=== PATIENT | female | born 1975 | race Caucasian/White ===

== ENCOUNTER 2016-10-12 17:30 | Inpatient (IN) | payer SELFPAY ==
[2016-10-12] VITALS (7 sets, daily range): BP systolic 92–109; BP diastolic 54–59; PULSE 74–88; RESP 16–19; TEMP 98.2–98.4; O2SAT 97–100
[~2016-10-12 17:30] MED LIST: IBUP800T23 PO; PROZ20CA11 PO; TRAZ100 PO
[2016-10-12] MEDS ORDERED: CLON1 PO (17:48)
[2016-10-12] MEDS ORDERED: AMPH1TAB29 PO (17:48)
[2016-10-12] MEDS ORDERED: ONDANSETRON HCL 4 MG/2 ML VIAL IV PUSH ONE (18:00)
[2016-10-12] MEDS ORDERED: MORPHINE SULFATE 4 MG/ML INJ IV PUSH ONE ×2 (18:00→21:30)
[2016-10-12] MEDS ORDERED: CLINDAMYCIN INJ 600 MG in SODIUM CHLORIDE 0.9% INJ 100 ML IV ONE (18:00)
[2016-10-12] MEDS ORDERED: SODIUM CHLORIDE 0.9% FLUSH 10 ML FLUSH IV FLUSH PRN ×2 (18:00→22:30)
--- NOTE | 2016-10-12 18:07 | PD ---
HPI Chief Complaint: Skin Problem Time Seen by Provider: 17:58 Travel History International Travel<30 days: No Contact w/Intl Traveler<30days: No Traveled to known affect area: No History of Present Illness HPI Patient comes in complaining of right breast pain and swelling that began 2 days ago. Patient denies any injury, breast-feeding, fevers, chest pain, shortness of breath, nipple discharge, or drainage. Patient states she had similar thing happen to her left breast in 2009 and she has been hospitalized for 3 days for an IV antibiotics. Patient describes pain as a throbbing pressure-like pain that radiates up into her right arm. Patient is on Bactrim and Cipro as well as received a IM shot of antibiotics yesterday that she received at a different ER with no improvement of symptoms. Patient states she feels it's getting worse. PFSH Past Medical History ADHD: Yes Anxiety: Yes Depression: Yes ?: Not Social History Tobacco Use: Yes Substance Use: No Allergies-Medications (Allergen,Severity, Reaction): Coded Allergies: No Known Allergies (Unverified , 10/12/16) Reported Meds & Prescriptions Reported Meds & Active Scripts Active Reported Khedezla 24 HR (Desvenlafaxine Succinate) 50 Mg Tab 25 Mg PO DAILY Klonopin (Clonazepam) 1 Mg Tab 1 Mg PO BID Adderall (Amphetamine-Dextroamphetamine) 5 Mg Tab 5 Mg PO DAILY Avoid late evening doses. Space doses at least 4 to 6 hours if more than once/day dosing. Review of Systems Except as stated in HPI: all other systems reviewed are Neg Physical Exam Narrative GENERAL: Well-developed, overly nourished, in no acute distress, and non-ill appearing. SKIN: Focused skin assessment warm and dry. Patient is a firm tender mass on the right breast at approximately 1 o'clock position. Right breast is swollen compared to the left. There is no nipple discharge. Area is afebrile, mild erythematous, and without crepitus or induration or fluctuation. HEAD: Atraumatic. Normocephalic. EYES: Pupils equal and round. EOMI. No scleral icterus. No injection or drainage. ENT: No nasal bleeding or discharge. Mucous membranes pink and moist. NECK: Trachea midline. Supple. No nuclear rigidity. CARDIOVASCULAR: Regular rate and rhythm. No murmur appreciated. RESPIRATORY: No accessory muscle use. No respiratory distress. Clear to auscultation. Breath sounds equal bilaterally. MUSCULOSKELETAL: No obvious deformities. No clubbing. No cyanosis. No edema. Full range of motion. NEUROLOGICAL: Awake and alert. No obvious cranial nerve deficits. Motor grossly within normal limits. Normal speech. PSYCHIATRIC: Appropriate mood and affect; insight and judgment normal. Data Data Last Documented VS Vital Signs Date Time Temp Pulse Resp B/P Pulse Ox O2 Delivery O2 Flow Rate FiO2 10/12/16 21:50 16 10/12/16 21:40 74 104/57 98 Room Air 10/12/16 17:34 98.4 Orders Basic Metabolic Panel (Bmp) (10/12/16 17:56) Complete Blood Count With Diff (10/12/16 17:56) Prothrombin Time / Inr (Pt) (10/12/16 17:56) Act Partial Throm Time (Ptt) (10/12/16 17:56) Iv Access Insert/Monitor (10/12/16 17:56) Ecg Monitoring (10/12/16 17:56) Oximetry (10/12/16 17:56) Sodium Chloride 0.9% Flush (Ns Flush) (10/12/16 18:00) Clindamycin Inj (Cleocin Inj) (10/12/16 18:00) Us Breast Unilateral (10/12/16 ) Ondansetron Inj (Zofran Inj) (10/12/16 18:00) Morphine Inj (Morphine Inj) (10/12/16 18:00) Ketorolac Inj (Toradol Inj) (10/12/16 19:30) Morphine Inj (Morphine Inj) (10/12/16 21:30) Sodium Chlor 0.9% 1000 Ml Inj (Ns 1000 M (10/12/16 21:30) Admit Order (Ed Use Only) (10/12/16 22:23) Labs Laboratory Tests Test 10/12/16 18:10 White Blood Count 10.5 TH/MM3 Red Blood Count 4.17 MIL/MM3 Hemoglobin 13.2 GM/DL Hematocrit 37.6 % Mean Corpuscular Volume 90.0 FL Mean Corpuscular Hemoglobin 31.6 PG Mean Corpuscular Hemoglobin 35.1 % Concent Red Cell Distribution Width 14.0 % Platelet Count 241 TH/MM3 Mean Platelet Volume 8.3 FL Neutrophils (%) (Auto) 73.2 % Lymphocytes (%) (Auto) 20.3 % Monocytes (%) (Auto) 5.4 % Eosinophils (%) (Auto) 0.9 % Basophils (%) (Auto) 0.2 % Neutrophils # (Auto) 7.7 TH/MM3 Lymphocytes # (Auto) 2.1 TH/MM3 Monocytes # (Auto) 0.6 TH/MM3 Eosinophils # (Auto) 0.1 TH/MM3 Basophils # (Auto) 0.0 TH/MM3 CBC Comment DIFF FINAL Differential Comment Prothrombin Time 10.6 SEC Prothromb Time International 1.0 RATIO Ratio Activated Partial 32.5 SEC Thromboplast Time Sodium Level 138 MEQ/L Potassium Level 3.6 MEQ/L Chloride Level 106 MEQ/L Carbon Dioxide Level 24.1 MEQ/L Anion Gap 8 MEQ/L Blood Urea Nitrogen 10 MG/DL Creatinine 1.17 MG/DL Estimat Glomerular Filtration 51 ML/MIN Rate Random Glucose 78 MG/DL Calcium Level 8.9 MG/DL [facility] Medical Decision Making Medical Screen Exam Complete: Yes Emergency Medical Condition: Yes Differential Diagnosis Abscess, cellulitis, mastitis, other Narrative Course Patient was seen and examined. IV was established. Patient was placed on a personnel monitor. Patient was given IV clindamycin, IV morphine for pain, IV Zofran for nausea, and IV Toradol for pain. Ultrasound was ordered. Patient's labs were reviewed. Patient was signed out to Dr. Ball pending ultrasound results. Please see her documentation for final diagnosis and disposition. Jimmy Howard Oct 12, 2016 18:07
[2016-10-12] MEDS ORDERED: DESV5TAB PO (18:30)
[2016-10-12 18:49] LABS: AUTOMATED NEUTROPHIL # 7.7 TH/MM3 (1.8-7.7); BASOPHIL % 0.2 % (0.0-2.0); EOSINOPHIL # 0.1 TH/MM3 (0-0.4); EOSINOPHIL % 0.9 % (0.0-4.0); HEMATOCRIT 37.6 % (35.0-46.0); HEMO FLAGS DIFF FINAL; LYMPH % 20.3 % (9.0-44.0); LYMPHOCYTE # 2.1 TH/MM3 (1.0-4.8); MEAN CORPUSCULAR HEMOGLOBIN 31.6 PG (27.0-34.0); MEAN CORPUSCULAR HGB CONC 35.1 % (32.0-36.0); MONO % 5.4 % (0.0-8.0); NEUT % 73.2 % (16.0-70.0); PLATELET COUNT 241 TH/MM3 (150-450); RED BLOOD COUNT 4.17 MIL/MM3 (4.00-5.30); WHITE BLOOD COUNT 10.5 TH/MM3 (4.0-11.0)
[2016-10-12 18:59] LABS: APTT (PATIENT) 32.5 SEC (24.3-30.1); PROTHROMBIN TIME - PATIENT 10.6 SEC (9.8-11.6)
[2016-10-12 19:17] LABS: BICARBONATE 24.1 MEQ/L (21.0-32.0); POTASSIUM 3.6 MEQ/L (3.5-5.1)
[2016-10-12] MEDS ORDERED: KETOROLAC TROMETHAMINE 30 MG/ML (IVP) VIAL IV PUSH ONE (19:30)
[2016-10-12] MEDS ORDERED: SODIUM CHLOR 0.9% 1000 ML INJ 1,000 ML IV SCH (21:30)
--- NOTE | 2016-10-12 21:53 | RADRPT ---
EXAM DATE/TIME: 10/12/2016 20:08 [place] COMPARISON: No previous studies available for comparison. INDICATIONS : Right breast pain and swelling. MEDICAL HISTORY : Anxiety. Depression. ADHD. SURGICAL HISTORY : None. ENCOUNTER: Initial ACUITY: 2 days PAIN SCORE: 6/10 LOCATION: Right breast. FINDINGS: The region of the right breast from 12: 00 to 6:00 was performed. There multiple dilated ducts seen at 12:00 through 2:00 and on color Doppl er, there is scattered areas of increased vascularity. At the 3:00 region, there is diffuse prominen t area of hyperechogenicity without increased flow by color Doppler which measures in excess of 5 cm in dimension. No focal fluid collection seen. There is some skin thickening about the scanned area. CONCLUSION: 1. Thickened and hyperechogenic soft tissue in the 3: 2. 00 region measuring excess of 5 cm without drainable fluid collections and without hypervascularit y. 3. 4. Dilated ducts and increased flow in the parenchyma from 12: 5. 00 to 2:00 without drainable fluid collections. 6. Please note that this examination is not performed for the purposes of detection of breast cancer, but rather for identification of abscess. Bryan House MD on October 12, 2016 at 21:47 Board Certified Radiologist. This report was verified electronically.
[2016-10-12] MEDS ORDERED: SENNOSIDES 8.6 MG TAB PO PRN (22:30)
[2016-10-12] MEDS ORDERED: LACTULOSE SYRUP 20 GM/30 ML CUP PO PRN (22:30)
[2016-10-12] MEDS ORDERED: BISACODYL 10 MG SUPP RECTAL PRN (22:30)
[2016-10-12] MEDS ORDERED: ONDANSETRON HCL 4 MG/2 ML VIAL IVP PRN (22:30)
[2016-10-12] MEDS ORDERED: MAGNESIUM HYDROXIDE SUSP 30 ML CUP PO PRN (22:30)
[2016-10-12] MEDS ORDERED: MORPHINE SULFATE 4 MG/ML INJ IV PRN (22:30)
[2016-10-12] MEDS ORDERED: ACETAMINOPHEN 325 MG TAB PO PRN (22:30)
[2016-10-12] MEDS ORDERED: ACETAMINOPHEN/HYDROcodone 325 MG/5 MG TAB PO PRN (22:30)
--- NOTE | 2016-10-12 22:30 | HHI.HP ---
[facility] No Primary Care Physician Admission Diagnosis mastitis Diagnoses: (1) Mastitis Diagnosis: Principal (2) JUANITA (acute kidney injury) Diagnosis: Principal (3) Dehydration Diagnosis: Principal (4) Hypotension Diagnosis: Principal (5) Tobacco abuse Diagnosis: Principal Travel History International Travel<30 Days: No Contact w/Intl Traveler <30 Da: No Traveled to Known Affected Are: No History of Present Illness This is a 41-year-old female with a PMH of Anxiety, Depression, ADHD and Tobacco Abuse who presented to the ER with complaints of right breast pain and swelling x2 days. States she noted right breast tenderness on which got progressively worse throughout the day (has photos in phone documenting progression). Presented to yesterday for ongoing symptoms, states she was given IV abx and discharged w/ Cipro/Bactrim-has taken a total of 4 doses. Today, noted worsening redness and pain and presented to Urgent Care. Given unknown IV Abx and Toradol w/ minimal relief. Presented here for ongoing complaints. No trauma, injury, piercing, not . Reports similar symptoms on left breast approx 7yrs ago which resolved after IV Abx. Denies fever, chills. On arrival, BP 109 and 59, HR 89, O2 sat 98% on RA, Afebrile. While in ER has had episodes of transient hypotension following Morphine with BP 92/54, HR 83, asymptomatic. Creatinine 1.17, no previous labs for comparison. GFR 51. INR 1.0. Breast US with thickened and hyperechogenic soft tissue measuring 5 cm without drainable fluid collection, dilated ducts and increased flow in the parenchyma also without drainable fluid collections. S/p Clinda in ER. Review of Systems Except as stated in HPI: all other systems reviewed are Neg ROS: 14 point review of systems otherwise negative. Past Family Social History Past Medical History PMH: Anxiety, Depression, ADHD and Tobacco Abuse Past Surgical History PAST SURGICAL HISTORY: Left Breast Biopsy Allergies: Coded Allergies: No Known Allergies (Unverified , 10/12/16) Family History PAST FAMILY HISTORY: Reviewed. No h/o DM or CAD Social History PAST SOCIAL HISTORY: Occasional alcohol. Smokes 1/2ppd. Negative for drugs. Physical Exam Vital Signs Vital Signs Date Time Temp Pulse Resp B/P Pulse Ox O2 Delivery O2 Flow Rate FiO2 10/12/16 21:40 74 16 104/57 98 Room Air 10/12/16 20:10 78 16 105/56 98 10/12/16 19:22 83 19 92/54 100 Room Air 10/12/16 18:21 98 Room Air 10/12/16 17:34 98.4 88 16 109/59 98 Room Air Physical Exam PE: GENERAL: Pleasant young female in mild distress secondary to significant breast pain. HEENT: PERRLA, EOMI. No scleral icterus or conjunctival pallor. No lid lag or facial droop. CARDIOVASCULAR: Regular rate and rhythm. No obvious murmurs to auscultation. No chest tenderness to palpation. Right breast significantly larger than left, +erythema, +induration, no fluctuance noted, nipple inverted. RESPIRATORY: No obvious rhonchi or wheezing. Clear to auscultation. Breath sounds equal bilaterally. GASTROINTESTINAL: Abdomen soft, non-tender, nondistended. BS normal. MUSCULOSKELETAL: Extremities without clubbing, cyanosis, or edema. No obvious deformities. NEUROLOGICAL: Awake, alert and oriented x4. No focal neurologic deficits. Moving both upper and lower extremities spontaneously. Laboratory Laboratory Tests Test 10/12/16 18:10 White Blood Count 10.5 Red Blood Count 4.17 Hemoglobin 13.2 Hematocrit 37.6 Mean Corpuscular Volume 90.0 Mean Corpuscular Hemoglobin 31.6 Mean Corpuscular Hemoglobin 35.1 Concent Red Cell Distribution Width 14.0 Platelet Count 241 Mean Platelet Volume 8.3 Neutrophils (%) (Auto) 73.2 Lymphocytes (%) (Auto) 20.3 Monocytes (%) (Auto) 5.4 Eosinophils (%) (Auto) 0.9 Basophils (%) (Auto) 0.2 Neutrophils # (Auto) 7.7 Lymphocytes # (Auto) 2.1 Monocytes # (Auto) 0.6 Eosinophils # (Auto) 0.1 Basophils # (Auto) 0.0 CBC Comment DIFF FINAL Differential Comment Prothrombin Time 10.6 Prothromb Time International 1.0 Ratio Activated Partial 32.5 Thromboplast Time Sodium Level 138 Potassium Level 3.6 Chloride Level 106 Carbon Dioxide Level 24.1 Anion Gap 8 Blood Urea Nitrogen 10 Creatinine 1.17 Estimat Glomerular Filtration 51 Rate Random Glucose 78 Calcium Level 8.9 Result Diagram: 10/12/16180910/12/161809 Assessment and Plan Problem List: (1) Mastitis ICD Code: N61.0 Status: Acute (2) JUANITA (acute kidney injury) ICD Code: N17.9 Status: Acute (3) Dehydration ICD Code: E86.0 Status: Acute (4) Hypotension ICD Code: I95.9 Status: Acute (5) Tobacco abuse ICD Code: Z72.0 Status: Acute Assessment and Plan A/P: 1. Mastitis: Unclear etiology, no trauma/piercing/. Acute onset of right breast pain/swelling x2 days, s/p Cipro/Bactrim po x1 day, IM Abx and Toradol today w/ minimal improvement. Afebrile, no leukocytosis. Breast w/ obvious infection on exam, no fluctuance noted. Breast US w/ thickened and hyperechogenic soft tissue measuring 5 cm without drainable fluid collection and dilated ducts with increased flow also without drainable fluid collections, images reviewed by me. S/p Clinda in ER. Will continue w/ IV Abx, transition to PO by time of discharge. Pt instructed to follow up w/ PCP for Mammogram to eval for possible underlying mass once acute infection resolved. 2. JUANITA: Creatinine 1.17, no previous labs for comparison. IVF for hydration. Repeat labs in am. 3. Dehydration: GFR 51, Creatinine elevated as above. IVF, repeat labs in am. 4. Hypotension: Likely medication-related, transient hypotension w/ BP 92/54, HR 83 after Morphine IV. IVF for hydration, monitor BP. Switch to Dilaudid IV at lower dose. 5. Tobacco Abuse: Pt counselled. NicoDerm prn if needed. 6. DVT Prophylaxis: SCD/Teds. 7. Social work for d/c planning as needed. 8. Case discussed w/ ER physician at length Adelia Almaguer MD Oct 12, 2016 22:30
[2016-10-12] MEDS: SODIUM CHLOR 0.9% 1000 ML INJ 1,000 ML IV SCH (22:47)
[2016-10-12] MEDS ORDERED: HYDROmorphone HCL PF 1 MG/ML VIAL IV PUSH PRN (23:00)
[2016-10-13] VITALS (8 sets, daily range): BP systolic 80–113; BP diastolic 51–96; PULSE 71–80; RESP 16–18; TEMP 97.2–98.5; O2SAT 95–99
[2016-10-13] MEDS ORDERED: KETOROLAC TROMETHAMINE 30 MG/ML (IVP) VIAL IV PUSH ONE (00:45)
--- NOTE | 2016-10-13 01:12 | PD ---
Data Data Last Documented VS Vital Signs Date Time Temp Pulse Resp B/P Pulse Ox O2 Delivery O2 Flow Rate FiO2 10/12/16 21:50 16 10/12/16 21:40 74 104/57 98 Room Air 10/12/16 17:34 98.4 Orders Basic Metabolic Panel (Bmp) (10/12/16 17:56) Complete Blood Count With Diff (10/12/16 17:56) Prothrombin Time / Inr (Pt) (10/12/16 17:56) Act Partial Throm Time (Ptt) (10/12/16 17:56) Iv Access Insert/Monitor (10/12/16 17:56) Ecg Monitoring (10/12/16 17:56) Oximetry (10/12/16 17:56) Sodium Chloride 0.9% Flush (Ns Flush) (10/12/16 18:00) Clindamycin Inj (Cleocin Inj) (10/12/16 18:00) Us Breast Unilateral (10/12/16 ) Ondansetron Inj (Zofran Inj) (10/12/16 18:00) Morphine Inj (Morphine Inj) (10/12/16 18:00) Ketorolac Inj (Toradol Inj) (10/12/16 19:30) Morphine Inj (Morphine Inj) (10/12/16 21:30) Sodium Chlor 0.9% 1000 Ml Inj (Ns 1000 M (10/12/16 21:30) Admit Order (Ed Use Only) (10/12/16 22:23) Labs Laboratory Tests Test 10/12/16 18:10 White Blood Count 10.5 TH/MM3 Red Blood Count 4.17 MIL/MM3 Hemoglobin 13.2 GM/DL Hematocrit 37.6 % Mean Corpuscular Volume 90.0 FL Mean Corpuscular Hemoglobin 31.6 PG Mean Corpuscular Hemoglobin 35.1 % Concent Red Cell Distribution Width 14.0 % Platelet Count 241 TH/MM3 Mean Platelet Volume 8.3 FL Neutrophils (%) (Auto) 73.2 % Lymphocytes (%) (Auto) 20.3 % Monocytes (%) (Auto) 5.4 % Eosinophils (%) (Auto) 0.9 % Basophils (%) (Auto) 0.2 % Neutrophils # (Auto) 7.7 TH/MM3 Lymphocytes # (Auto) 2.1 TH/MM3 Monocytes # (Auto) 0.6 TH/MM3 Eosinophils # (Auto) 0.1 TH/MM3 Basophils # (Auto) 0.0 TH/MM3 CBC Comment DIFF FINAL Differential Comment Prothrombin Time 10.6 SEC Prothromb Time International 1.0 RATIO Ratio Activated Partial 32.5 SEC Thromboplast Time Sodium Level 138 MEQ/L Potassium Level 3.6 MEQ/L Chloride Level 106 MEQ/L Carbon Dioxide Level 24.1 MEQ/L Anion Gap 8 MEQ/L Blood Urea Nitrogen 10 MG/DL Creatinine 1.17 MG/DL Estimat Glomerular Filtration 51 ML/MIN Rate Random Glucose 78 MG/DL Calcium Level 8.9 MG/DL MDM Supervised Visit with VIRGEN: Yes Narrative Course The history, exam, and medical decision-making in the associated midlevel provider note were completed with my assistance. I reviewed and agree with the findings presented. I attest that I had a [id number] encounter with the patient on the same day, and personally performed and documented my assessment and findings in the medical record. *My assessment and Findings: This is a 41-year-old female who presents to the emergency department with right sided breast pain, redness and swelling that's been worsening over the past 2 days. She's had mastitis in the opposite breast years ago. She is an impressive exam with diffuse erythema and an area of induration along the breast. She's been on antibiotics for about 24 hours and her symptoms seem to be progressing rapidly. Labs are reassuring. Ultrasound demonstrates an area of hyper echogenicity but no definitive abscess. Patient was given a dose of IV clindamycin and will be placed in observation for pain control and continued antibiotic therapy. Physician Communication Physician Communication Discussed with Dr. Almaguer Diagnosis Primary Impression: Mastitis Admitting Information Admitting Physician Requests: Observation Shazia Ball MD Oct 13, 2016 01:12
[2016-10-13] MEDS ORDERED: SODIUM CHLORID 0.9% 500 ML INJ 500 ML IV ONE (05:15)
[2016-10-13] MEDS: CLINDAMYCIN INJ 900 MG in SODIUM CHLORIDE 0.9% INJ 100 ML IV SCH ×3 (07:07→22:19)
[2016-10-13] MEDS: SODIUM CHLOR 0.9% 1000 ML INJ 1,000 ML IV SCH ×2 (08:20→18:20)
--- NOTE | 2016-10-13 08:20 | HHI.PR ---
Subjective Remarks Follow-up for mastitis. Patient seen and examined in the presence of RN. The patient reports no improvement in breast pain and swelling overnight. She denies any nipple drainage. She denies any fevers or chills. She reports decreased appetite, but was able to tolerate a protein bar this morning. She states that she has a history of mastitis on the left breast in the past. She states that they had to use multiple different antibiotics before she finally had relief previously. She states that they were not able to get any cultures as samples on her previous infection, but she states she was told that she may have had MRSA. She reports that over the past 3 days her pain has not been controlled with Toradol, [place], morphine. Objective Vitals Vital Signs Date Time Temp Pulse Resp B/P Pulse Ox O2 Delivery O2 Flow Rate FiO2 10/13/16 04:54 99/54 10/13/16 04:54 100/64 10/13/16 02:49 98.2 76 18 90/52 99 10/12/16 23:47 98.2 75 18 95/54 97 10/12/16 23:12 75 18 92/55 98 10/12/16 21:50 16 10/12/16 21:40 74 16 104/57 98 Room Air 10/12/16 20:10 78 16 105/56 98 10/12/16 19:22 83 19 92/54 100 Room Air 10/12/16 18:21 98 Room Air 10/12/16 17:34 98.4 88 16 109/59 98 Room Air I/O 10/12/16 10/12/16 10/12/16 10/13/16 10/13/16 10/13/16 07:00 15:00 23:00 07:00 15:00 23:00 Intake Total 1500 ml Balance 1500 ml Intake Oral 500 ml IV Total 1000 ml # Voids 1 2 Result Diagram: 10/12/16180910/12/161809 Imaging Last Impressions Breast Ultrasound 10/12/16 0000 Signed Impressions: Service Date/Time: Wednesday, October 12, 2016 20:08 - CONCLUSION: 1. Thickened and hyperechogenic soft tissue in the 3: 2. 00 region measuring excess of 5 cm without drainable fluid collections and without hypervascularity. 3. 4. Dilated ducts and increased flow in the parenchyma from 12: 5. 00 to 2:00 without drainable fluid collections. 6. Please note that this examination is not performed for the purposes of detection of breast cancer, but rather for identification of abscess. Bryan House MD Objective Remarks GENERAL: Well-developed well-nourished. In no acute distress. SKIN: Warm and dry. Right breast with significant swelling, erythema, warmth, superior induration; no fluctuance noted, no nipple drainage. HEENT: Normocephalic. Pupils equal and round. Mucous membranes pink and moist. CARDIOVASCULAR: Regular rate and rhythm. No murmur appreciated. RESPIRATORY: No accessory muscle use. Clear to auscultation. Breath sounds equal bilaterally. GASTROINTESTINAL: Abdomen soft, non-tender, nondistended. Bowel sounds x4. MUSCULOSKELETAL: No obvious deformities. No clubbing or cyanosis. No edema. NEUROLOGICAL: Awake and alert. No focal neurological deficits. Moves upper and lower extremities spontaneously. Normal speech. PSYCHIATRIC: Appropriate mood and affect; insight and judgment normal. A/P Problem List: (1) Mastitis ICD Code: N61.0 Status: Acute (2) JUANITA (acute kidney injury) ICD Code: N17.9 Status: Acute (3) Dehydration ICD Code: E86.0 Status: Acute (4) Hypotension ICD Code: I95.9 Status: Acute (5) Tobacco abuse ICD Code: Z72.0 Status: Chronic Assessment and Plan 41-year-old female with a PMH of Anxiety, Depression, ADHD and Tobacco Abuse who presented with complaints of right breast pain and swelling x2 days Mastitis: Unclear etiology, no trauma/piercing/. Acute onset of right breast pain/swelling. IV/IM/PO antibiotics for 2 days prior to admission with no improvement. Afebrile, no leukocytosis. Breast w/ obvious infection on exam, no fluctuance noted. Breast US w/ thickened and hyperechogenic soft tissue measuring 5 cm without drainable fluid collection and dilated ducts with increased flow also without drainable fluid collections. Continue IV clindamycin for now with Lactinex. Consider ID consultation if no improvement. Consult general surgery to eval for possible debridement. Pain control with oral Percocet and IV Dilaudid as needed. JUANITA: Creatinine 1.17, no previous labs for comparison. IVF for hydration. Follow-up repeat labs. Hypotension: It appears the patient's blood pressure is soft at baseline. Caution with IV narcotics. IVF for hydration, monitor BP. Anxiety/depression/ADHD: Chronic, continue home medications as indicated. Tobacco Abuse: Pt counseling. NicoDerm if needed. DVT Prophylaxis: SCD/Teds. Discharge Planning D/W Dr. Puentes. Admit to inpatient with failed outpatient therapy. Chuy Blakely Oct 13, 2016 08:20
[2016-10-13] MEDS: oxyCODONE/ACETAMINOPHEN 5 MG/325 MG TAB PO PRN ×2 (08:47→14:23)
[2016-10-13] MEDS: SODIUM CHLORIDE 0.9% FLUSH 10 ML FLUSH IV FLUSH SCH ×2 (09:00→21:00)
[2016-10-13] MEDS: LACTOBACILLUS ACIDOPHILUS TAB PO SCH ×2 (09:28→21:06)
[2016-10-13] MEDS: clonazePAM 1 MG TAB PO SCH ×2 (09:28→21:06)
[2016-10-13] MEDS: DOCUSATE SODIUM 50 MG/SENNA 8.6 MG TAB PO SCH ×2 (09:28→21:00)
[2016-10-13] MEDS: DEXTROAMPHETAMINE/AMPHETAMINE 5 MG TAB PO SCH (09:28)
[2016-10-13] MEDS ORDERED: HYDROmorphone HCL PF 1 MG/ML VIAL IV PUSH PRN (11:00)
--- NOTE | 2016-10-13 15:18 | PD.CONS ---
HPI Service General Surgery Consult Requested By Reason for Consult mastitis Primary Care Physician No Primary Care Physician History of Present Illness The patient is a 41-year-old female with a history of left breast mastitis in 2009 who presents with 3 days of pain and swelling to the right breast. She has never had children and has not been breast-feeding. She does not have a family history of breast cancer that she knows of. She smokes cigarettes one half to one pack per day. She developed swelling pain and erythema to the right breast on 3 days ago and presented to the emergency department yesterday. She denies nipple discharge. She did not have leukocytosis. Ultrasound of the right breast showed areas of tissue thickening and ducts dilatation in the right breast with no drainable fluid collection. In 2009 she had mastitis which did resolve with antibiotics alone. On her request, a biopsy of the area was performed a couple of months later and diagnosis showed fibrocystic disease and mastitis. Review of Systems Constitutional: DENIES: Fever, Chills Eyes: DENIES: Eye inflammation, Eye pain Respiratory: DENIES: Cough, Shortness of breath Cardiovascular: DENIES: Chest pain, Palpitations Gastrointestinal: DENIES: Abdominal pain, Nausea Integumentary: COMPLAINS OF: Breast skin changes, DENIES: Pruritus, Rash Past Family Social History Past Medical History Anxiety Depression ADHD Mastitis Tobacco use Past Surgical History Left breast biopsybenign Reported Medications Reported Meds & Active Scripts Active Reported Khedezla 24 HR (Desvenlafaxine Succinate) 50 Mg Tab 25 Mg PO DAILY Klonopin (Clonazepam) 1 Mg Tab 1 Mg PO BID Adderall (Amphetamine-Dextroamphetamine) 5 Mg Tab 5 Mg PO DAILY Avoid late evening doses. Space doses at least 4 to 6 hours if more than once/day dosing. Allergies: Coded Allergies: No Known Allergies (Unverified , 10/12/16) Active Ordered Medications Current Medications Medications (Trade) Dose Ordered Sig/Therese Route Start Time Stop Time Status Last Admin Sodium Chloride 2 ml 2 ml UNSCH PRN IV FLUSH 10/12/16 18:00 (NS 1000 ml Inj) 1,000 ml @ 100 mls/hr Q10H IV 10/12/16 22:20 10/12/16 22:47 (NS Flush) 2 ml UNSCH PRN IV FLUSH 10/12/16 22:30 (NS Flush) 2 ml BID IV FLUSH 10/13/16 09:00 (Zofran Inj) 4 mg Q6H PRN IVP 10/12/16 22:30 (Tylenol) 650 mg Q6H PRN PO 10/12/16 22:30 (Soraya-Colace) 1 tab BID PO 10/13/16 09:00 10/13/16 09:28 (Milk Of Magnesia Liq) 30 ml Q12H PRN PO 10/12/16 22:30 (Senokot) 17.2 mg Q12H PRN PO 10/12/16 22:30 (Dulcolax Supp) 10 mg DAILY PRN RECTAL 10/12/16 22:30 (Lactulose Liq) 30 ml DAILY PRN PO 10/12/16 22:30 (Adderall) 5 mg DAILY PO 10/13/16 09:00 10/13/16 09:28 (KlonoPIN) 1 mg BID PO 10/13/16 09:00 10/13/16 09:28 Patient Own Medication PT OWN MED: (Desvenlafaxine ER 24... DAILY PO 10/13/16 09:00 Hold (Cleocin Inj/NS Inj) 106 ml @ 212 mls/hr Q8HR IV 10/13/16 06:00 10/13/16 14:22 (Dilaudid Pf Inj) 0.2 mg Q4H PRN IV PUSH 10/13/16 11:00 (Lactinex) 1 tab Q12HR PO 10/13/16 09:00 10/13/16 09:28 (Percocet 5-325 Mg) 1 tab Q6H PRN PO 10/13/16 08:15 10/13/16 14:23 Family History Noncontributory Social History Occasional alcohol use. No drug use. She smokes 1/2-1 pack of cigarettes daily. Physical Exam Vital Signs Vital Signs Date Time Temp Pulse Resp B/P Pulse Ox O2 Delivery O2 Flow Rate FiO2 10/13/16 11:30 97.2 80 16 113/96 96 10/13/16 10:48 92/60 10/13/16 09:51 80/60 10/13/16 09:47 20 10/13/16 08:14 97.8 71 18 96/51 98 10/13/16 04:54 99/54 10/13/16 04:54 100/64 10/13/16 02:49 98.2 76 18 90/52 99 10/12/16 23:47 98.2 75 18 95/54 97 10/12/16 23:12 75 18 92/55 98 10/12/16 21:50 16 10/12/16 21:40 74 16 104/57 98 Room Air 10/12/16 20:10 78 16 105/56 98 10/12/16 19:22 83 19 92/54 100 Room Air 10/12/16 18:21 98 Room Air 10/12/16 17:34 98.4 88 16 109/59 98 Room Air Physical Exam GENERAL: Awake and alert. No acute distress. Cooperative. Overweight. HEAD: Normocephalic. Atraumatic. EYES: Pupils equal round and reactive to light bilaterally. No scleral icterus. Breasts: Performed in the presence of a female nurse. Right breast edematous enlarged and significantly tender. There is erythema present. She has mild nipple retraction. There is a masslike indurated area in the 12 o'clock position. No fluctuance. Left breast without tenderness or mass. No axillary or supraclavicular adenopathy. CHEST: Lungs clear to auscultation bilaterally with no wheezing or rhonchi. No respiratory distress. CARDIOVASCULAR: Regular rate and rhythm. EXTREMITIES: No cyanosis or edema. SKIN: Warm, dry, nonjaundiced. Laboratory Laboratory Tests Test 10/12/16 18:10 White Blood Count 10.5 Red Blood Count 4.17 Hemoglobin 13.2 Hematocrit 37.6 Mean Corpuscular Volume 90.0 Mean Corpuscular Hemoglobin 31.6 Mean Corpuscular Hemoglobin 35.1 Concent Red Cell Distribution Width 14.0 Platelet Count 241 Mean Platelet Volume 8.3 Neutrophils (%) (Auto) 73.2 Lymphocytes (%) (Auto) 20.3 Monocytes (%) (Auto) 5.4 Eosinophils (%) (Auto) 0.9 Basophils (%) (Auto) 0.2 Neutrophils # (Auto) 7.7 Lymphocytes # (Auto) 2.1 Monocytes # (Auto) 0.6 Eosinophils # (Auto) 0.1 Basophils # (Auto) 0.0 CBC Comment DIFF FINAL Differential Comment Prothrombin Time 10.6 Prothromb Time International 1.0 Ratio Activated Partial 32.5 Thromboplast Time Sodium Level 138 Potassium Level 3.6 Chloride Level 106 Carbon Dioxide Level 24.1 Anion Gap 8 Blood Urea Nitrogen 10 Creatinine 1.17 Estimat Glomerular Filtration 51 Rate Random Glucose 78 Calcium Level 8.9 Result Diagram: 10/12/16180910/12/16 181 Imaging Last Impressions Breast Ultrasound 10/12/16 0000 Signed Impressions: Service Date/Time: Wednesday, October 12, 2016 20:08 - CONCLUSION: 1. Thickened and hyperechogenic soft tissue in the 3: 2. 00 region measuring excess of 5 cm without drainable fluid collections and without hypervascularity. 3. 4. Dilated ducts and increased flow in the parenchyma from 12: 5. 00 to 2:00 without drainable fluid collections. 6. Please note that this examination is not performed for the purposes of detection of breast cancer, but rather for identification of abscess. Bryan House MD Assessment and Plan Assessment and Plan 41-year-old female with periductal mastitis. She has had this occur in the left breast in the past. This is associated with smoking. No need for surgical intervention this time. Recommend continued IV antibiotics and warm compresses as needed. Luis Loera MD Oct 13, 2016 15:18
[2016-10-13 16:45] LABS: AUTOMATED NEUTROPHIL # 4.2 TH/MM3 (1.8-7.7); BASOPHIL % 0.3 % (0.0-2.0); EOSINOPHIL # 0.1 TH/MM3 (0-0.4); EOSINOPHIL % 1.9 % (0.0-4.0); HEMATOCRIT 35.8 % (35.0-46.0); HEMO FLAGS DIFF FINAL; LYMPH % 27.3 % (9.0-44.0); LYMPHOCYTE # 1.8 TH/MM3 (1.0-4.8); MEAN CORPUSCULAR HEMOGLOBIN 30.8 PG (27.0-34.0); MEAN CORPUSCULAR HGB CONC 33.9 % (32.0-36.0); MONO % 7.2 % (0.0-8.0); NEUT % 63.3 % (16.0-70.0); PLATELET COUNT 228 TH/MM3 (150-450); RED BLOOD COUNT 3.93 MIL/MM3 (4.00-5.30); RED CELL DISTRIBUTION WIDTH 13.5 % (11.6-17.2); WHITE BLOOD COUNT 6.6 TH/MM3 (4.0-11.0)
[2016-10-13 17:08] LABS: ALT (GPT) 51 U/L (10-53); ANION GAP 6 MEQ/L (5-15); AST (GOT) 41 U/L (15-37); BICARBONATE 26.4 MEQ/L (21.0-32.0); BLOOD UREA NITROGEN 7 MG/DL (7-18); CHLORIDE 110 MEQ/L (98-107); GLOMERULAR FILTRATION RATE 72 ML/MIN (>89); POTASSIUM 4.1 MEQ/L (3.5-5.1); SODIUM (NA) 142 MEQ/L (136-145)
[2016-10-13 17:10] LABS: ALKALINE PHOSPHATASE 112 U/L (45-117); TOTAL BILIRUBIN ADULT 0.4 MG/DL (0.2-1.0)
[2016-10-13] MEDS: oxyCODONE/ACETAMINOPHEN 7.5 MG/325 MG TAB PO PRN ×2 (18:21→22:19)
[2016-10-13] MEDS ORDERED: NAPROXEN 500 MG TAB PO ONE (20:00)
[2016-10-13] MEDS: HYDROmorphone HCL PF 1 MG/ML VIAL IV PUSH PRN (21:08)
[2016-10-14] VITALS: BP 107/68; PULSE 75; RESP 18; TEMP 97.2; O2SAT 97
[2016-10-14] MEDS: SODIUM CHLOR 0.9% 1000 ML INJ 1,000 ML IV SCH ×2 (04:20→14:50)
[2016-10-14] MEDS: CLINDAMYCIN INJ 900 MG in SODIUM CHLORIDE 0.9% INJ 100 ML IV SCH ×3 (05:59→21:28)
[2016-10-14 08:00] VITALS: BP 102/70; PULSE 76; RESP 16; TEMP 96.2; O2SAT 100
[2016-10-14] MEDS: SODIUM CHLORIDE 0.9% FLUSH 10 ML FLUSH IV FLUSH SCH ×2 (09:00→20:16)
[2016-10-14] MEDS: LACTOBACILLUS ACIDOPHILUS TAB PO SCH ×2 (09:22→20:16)
[2016-10-14] MEDS: NAPROXEN 500 MG TAB PO SCH ×2 (09:22→20:16)
[2016-10-14] MEDS: DEXTROAMPHETAMINE/AMPHETAMINE 5 MG TAB PO SCH (09:22)
[2016-10-14] MEDS: clonazePAM 1 MG TAB PO SCH ×2 (09:22→20:16)
[2016-10-14] MEDS: DOCUSATE SODIUM 50 MG/SENNA 8.6 MG TAB PO SCH ×2 (09:22→20:16)
[2016-10-14] MEDS: oxyCODONE/ACETAMINOPHEN 7.5 MG/325 MG TAB PO PRN ×4 (09:23→23:20)
[2016-10-14 12:59] VITALS: BP 103/74; PULSE 77; RESP 16; TEMP 97.2
--- NOTE | 2016-10-14 14:01 | HHI.PR ---
Subjective Remarks Patient states right breast is less swollen but still very tender. denies fevers/chills denies diarrhea/rash. Vital signs better - bp improved. Objective Vitals Vital Signs Date Time Temp Pulse Resp B/P Pulse Ox O2 Delivery O2 Flow Rate FiO2 10/14/16 12:59 97.2 77 16 103/74 10/14/16 08:00 96.2 76 16 102/70 100 10/14/16 00:00 97.2 75 18 107/68 97 10/13/16 21:45 18 10/13/16 21:45 18 10/13/16 20:00 98.5 73 18 98/64 95 10/13/16 19:22 18 10/13/16 16:00 98.4 77 16 106/71 96 I/O 10/13/16 10/13/16 10/13/16 10/14/16 10/14/16 10/14/16 07:00 15:00 23:00 07:00 15:00 23:00 Intake Total 1860 ml 480 ml 720 ml Balance 1860 ml 480 ml 720 ml Intake Oral 860 ml 480 ml 720 ml IV Total 1000 ml # Voids 1 4 3 3 Result Diagram: 10/13/16 1557 10/13/16 1557 Imaging Last Impressions Breast Ultrasound 10/12/16 0000 Signed Impressions: Service Date/Time: Wednesday, October 12, 2016 20:08 - CONCLUSION: 1. Thickened and hyperechogenic soft tissue in the 3: 2. 00 region measuring excess of 5 cm without drainable fluid collections and without hypervascularity. 3. 4. Dilated ducts and increased flow in the parenchyma from 12: 5. 00 to 2:00 without drainable fluid collections. 6. Please note that this examination is not performed for the purposes of detection of breast cancer, but rather for identification of abscess. Bryan House MD Objective Remarks GENERAL: Well-developed well-nourished. In no acute distress. SKIN: Warm and dry. Right breast with significant swelling, erythema, warmth, superior induration; no fluctuance noted, nipple is inverted without drainage. HEENT: Normocephalic. Pupils equal and round. Mucous membranes pink and moist. CARDIOVASCULAR: Regular rate and rhythm. No murmur appreciated. RESPIRATORY: No accessory muscle use. Clear to auscultation. Breath sounds equal bilaterally. GASTROINTESTINAL: Abdomen soft, non-tender, nondistended. Bowel sounds x4. MUSCULOSKELETAL: No obvious deformities. No clubbing or cyanosis. No edema. NEUROLOGICAL: Awake and alert. No focal neurological deficits. Moves upper and lower extremities spontaneously. Normal speech. PSYCHIATRIC: Appropriate mood and affect; insight and judgment normal. Medications and IVs Current Medications Medications (Trade) Dose Ordered Sig/Therese Route Start Time Stop Time Status Last Admin (NS 1000 ml Inj) 1,000 ml @ 100 mls/hr Q10H IV 10/12/16 22:20 10/14/16 14:50 (NS Flush) 2 ml UNSCH PRN IV FLUSH 10/12/16 22:30 (NS Flush) 2 ml BID IV FLUSH 10/13/16 09:00 10/13/16 21:00 (Zofran Inj) 4 mg Q6H PRN IVP 10/12/16 22:30 (Tylenol) 650 mg Q6H PRN PO 10/12/16 22:30 (Soraya-Colace) 1 tab BID PO 10/13/16 09:00 10/14/16 09:22 (Milk Of Magnesia Liq) 30 ml Q12H PRN PO 10/12/16 22:30 (Senokot) 17.2 mg Q12H PRN PO 10/12/16 22:30 (Dulcolax Supp) 10 mg DAILY PRN RECTAL 10/12/16 22:30 (Lactulose Liq) 30 ml DAILY PRN PO 10/12/16 22:30 (Adderall) 5 mg DAILY PO 10/13/16 09:00 10/14/16 09:22 (KlonoPIN) 1 mg BID PO 10/13/16 09:00 10/14/16 09:22 Patient Own Medication PT OWN MED: (Desvenlafaxine ER 24... DAILY PO 10/13/16 09:00 Hold (Cleocin Inj/NS Inj) 106 ml @ 212 mls/hr Q8HR IV 10/13/16 06:00 10/14/16 13:23 (Lactinex) 1 tab Q12HR PO 10/13/16 09:00 10/14/16 09:22 (Percocet 7.5-325 Mg) 1 tab Q4H PRN PO 10/13/16 17:15 10/14/16 13:04 (Dilaudid Pf Inj) 0.5 mg Q4H PRN IV PUSH 10/13/16 17:15 10/14/16 14:51 (Naprosyn) 500 mg Q12HR PO 10/14/16 09:00 10/14/16 09:22 A/P Problem List: (1) Mastitis ICD Code: N61.0 Status: Acute Plan: Unclear etiology, no trauma/piercing/. Acute onset of right breast pain/swelling x2 days, s/p Cipro/Bactrim po x1 day, IM Abx and Toradol today w/ minimal improvement. Afebrile, no leukocytosis. Breast w/ obvious infection on exam, no fluctuance noted. Breast US w/ thickened and hyperechogenic soft tissue measuring 5 cm without drainable fluid collection and dilated ducts with increased flow also without drainable fluid collections, images reviewed by me. S/p Clinda in ER. Will continue w/ IV Abx, transition to PO by time of discharge. Pt instructed to follow up w/ PCP for Mammogram to eval for possible underlying mass once acute infection resolved. General surgery consulted, appreciate recommendations. No surgical intervention at this time recommended. (2) JUANITA (acute kidney injury) ICD Code: N17.9 Status: Resolved Plan: Creatinine 1.17 on admission, down to 0.88 on 10/13. Due to prerenal azotemia due to reported poor oral intake. Resolved after IVF administration. Continue to monitor BMP, strict I's and O's. Discontinue IV fluids. (3) Dehydration ICD Code: E86.0 Status: Resolved Plan: Patient treated with IV fluids. Patient now hydrated and able to tolerate by mouth. Will DC IV fluids. (4) Hypotension ICD Code: I95.9 Status: Resolved Plan: due to dehydration combined with IV narcotics. Bp much improved after IV fluid administration. Continue to monitor vital signs and treat hypotension with IV fluid boluses as needed. (5) Tobacco abuse ICD Code: Z72.0 Status: Chronic Plan: Advised smoking cessation. Assessment and Plan DVt prophylaxis: Encourage ambulation since patient is ambulatory , SCD's. Problem Qualifiers (1) Hypotension: Qualified Code: I95.2 - Hypotension due to drugs Dionicio Mccallum MD Oct 14, 2016 14:01
[2016-10-14] MEDS: HYDROmorphone HCL PF 1 MG/ML VIAL IV PUSH PRN ×2 (14:51→20:19)
--- NOTE | 2016-10-14 16:22 | HHI.PR ---
Subjective Subjective Notes She feels a bit better but still has pain and swelling of the right breast. Objective Vitals/I&O Vital Signs Date Time Temp Pulse Resp B/P Pulse Ox O2 Delivery O2 Flow Rate FiO2 10/14/16 12:59 97.2 77 16 103/74 10/14/16 08:00 100 10/12/16 21:40 Room Air Radiology Last Impressions Breast Ultrasound 10/12/16 0000 Signed Impressions: Service Date/Time: Wednesday, October 12, 2016 20:08 - CONCLUSION: 1. Thickened and hyperechogenic soft tissue in the 3: 2. 00 region measuring excess of 5 cm without drainable fluid collections and without hypervascularity. 3. 4. Dilated ducts and increased flow in the parenchyma from 12: 5. 00 to 2:00 without drainable fluid collections. 6. Please note that this examination is not performed for the purposes of detection of breast cancer, but rather for identification of abscess. Bryan House MD Narrative Exam examined in presence of female nurse: right breast with lessened erythema, superiorly at 1200 fairly large area prob 8cm of induration and tenderness, not fluctuant A/P Assessment and Plan 41 yo F with right breast periductal mastitis. Continue current treatment. May repeat u/s tomorrow or Friday to see if it has coalesced into an abscess. 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 I will leave this up to the primary team. Evaristo,Luis ROBLES Oct 14, 2016 16:22
[2016-10-14 17:00] VITALS: BP 103/72; PULSE 78; RESP 15; TEMP 98.1; O2SAT 96
[2016-10-14 20:30] VITALS: BP 107/70; PULSE 87; RESP 20; TEMP 97.9; O2SAT 99
[2016-10-15 00:10] VITALS: BP 105/69; PULSE 85; RESP 18; TEMP 97.2; O2SAT 98
[2016-10-15] MEDS: HYDROmorphone HCL PF 1 MG/ML VIAL IV PUSH PRN (01:13)
[2016-10-15 05:00] VITALS: BP 104/58; PULSE 81; RESP 16; TEMP 96.7; O2SAT 99
[2016-10-15] MEDS: oxyCODONE/ACETAMINOPHEN 7.5 MG/325 MG TAB PO PRN ×3 (06:20→14:45)
[2016-10-15] MEDS: CLINDAMYCIN INJ 900 MG in SODIUM CHLORIDE 0.9% INJ 100 ML IV SCH ×2 (06:21→14:31)
[2016-10-15 07:04] LABS: HEMATOCRIT 35.8 % (35.0-46.0); MEAN CELL VOLUME 89.9 FL (80.0-100.0); MEAN CORPUSCULAR HEMOGLOBIN 29.8 PG (27.0-34.0); MEAN CORPUSCULAR HGB CONC 33.2 % (32.0-36.0); PLATELET COUNT 248 TH/MM3 (150-450); RED BLOOD COUNT 3.99 MIL/MM3 (4.00-5.30); RED CELL DISTRIBUTION WIDTH 13.5 % (11.6-17.2); REVIEW FLAG FINAL
[2016-10-15 07:33] LABS: BICARBONATE 25.9 MEQ/L (21.0-32.0); POTASSIUM 4.1 MEQ/L (3.5-5.1)
[2016-10-15 08:00] VITALS: BP 104/69; PULSE 78; RESP 16; TEMP 97.2; O2SAT 100
--- NOTE | 2016-10-15 10:01 | HHI.PR ---
Subjective Subjective Notes Feels breast is improving. Objective Vitals/I&O Vital Signs Date Time Temp Pulse Resp B/P Pulse Ox O2 Delivery O2 Flow Rate FiO2 10/15/16 08:00 97.2 78 16 104/69 100 10/12/16 21:40 Room Air Labs Laboratory Tests Test 10/15/16 05:57 White Blood Count 5.0 Red Blood Count 3.99 Hemoglobin 11.9 Hematocrit 35.8 Mean Corpuscular Volume 89.9 Mean Corpuscular Hemoglobin 29.8 Mean Corpuscular Hemoglobin 33.2 Concent Red Cell Distribution Width 13.5 Platelet Count 248 Mean Platelet Volume 7.9 Sodium Level 141 Potassium Level 4.1 Chloride Level 109 Carbon Dioxide Level 25.9 Anion Gap 6 Blood Urea Nitrogen 6 Creatinine 0.72 Estimat Glomerular Filtration 90 Rate Random Glucose 103 Calcium Level 8.6 Radiology Last Impressions Breast Ultrasound 10/12/16 0000 Signed Impressions: Service Date/Time: Wednesday, October 12, 2016 20:08 - CONCLUSION: 1. Thickened and hyperechogenic soft tissue in the 3: 2. 00 region measuring excess of 5 cm without drainable fluid collections and without hypervascularity. 3. 4. Dilated ducts and increased flow in the parenchyma from 12: 5. 00 to 2:00 without drainable fluid collections. 6. Please note that this examination is not performed for the purposes of detection of breast cancer, but rather for identification of abscess. Bryan House MD Narrative Exam examined in presence of female nurse: right breast with no erythema now, and overall less swollen; persistent indurated area at 12 oclock A/P Assessment and Plan 41 yo F with right breast periductal mastitis. Repeat right breast u/s to eval for abscess. If no abscess and thickened tissue only, I am ok with discharge on oral antibiotics. She can f/u with me in two weeks. Smoking cessation will help keep this from recurring. Evaristo,Luis ROBLES Oct 15, 2016 10:01
[2016-10-15] MEDS: DEXTROAMPHETAMINE/AMPHETAMINE 5 MG TAB PO SCH (10:14)
[2016-10-15] MEDS: clonazePAM 1 MG TAB PO SCH (10:14)
[2016-10-15] MEDS: LACTOBACILLUS ACIDOPHILUS TAB PO SCH (10:14)
[2016-10-15] MEDS: NAPROXEN 500 MG TAB PO SCH (10:14)
[2016-10-15] MEDS: DOCUSATE SODIUM 50 MG/SENNA 8.6 MG TAB PO SCH (10:14)
[2016-10-15] MEDS: SODIUM CHLORIDE 0.9% FLUSH 10 ML FLUSH IV FLUSH SCH (10:17)
[2016-10-15 12:00] VITALS: BP 99/69; PULSE 74; RESP 16; TEMP 94.9; O2SAT 98
--- NOTE | 2016-10-15 15:06 | RADRPT ---
EXAM DATE/TIME: 10/15/2016 11:33 [facility] COMPARISON: US BREAST RIGHT, October 12, 2016, 20:08. INDICATIONS : Right breast abscess. MEDICAL HISTORY : Anxiety. Depression. ADHD. Vascular necrosis. SURGICAL HISTORY : Left breast biopsy. ENCOUNTER: Subsequent ACUITY: 3 days PAIN SCORE: 5/10 LOCATION: Right breast. FINDINGS: Prior breast ultrasound had demonstrated an inhomogeneous area of increased echotexture at 2: 00-4:00. On today's examination, there is a heterogeneous pattern of echotexture in this area measur ing 5.7 x 4.2 cm. No shadowing. No increased flow by color Doppler. CONCLUSION: Continued abnormal appearance of the breast parenchyma at 2:00-4:00 without hypervascularity and with out drainable fluid collections. Bryan House MD on October 15, 2016 at 15:03 Board Certified Radiologist. This report was verified electronically.
[2016-10-15 16:00] VITALS: BP 99/71; PULSE 70; RESP 16; TEMP 98.1; O2SAT 98
--- NOTE | 2016-10-15 16:57 | HHI.PR ---
Subjective Remarks Deferred entry, patient seen at 10:30 AM. Patient states that right breast pain is much improved. Denies fevers or chills Blood pressure stable. Objective Vitals Vital Signs Date Time Temp Pulse Resp B/P Pulse Ox O2 Delivery O2 Flow Rate FiO2 10/15/16 12:00 94.9 74 16 99/69 98 10/15/16 08:00 97.2 78 16 104/69 100 10/15/16 05:00 96.7 81 16 104/58 99 10/15/16 00:10 97.2 85 18 105/69 98 10/14/16 20:30 97.9 87 20 107/70 99 10/14/16 17:00 98.1 78 15 103/72 96 I/O 10/14/16 10/14/16 10/14/16 10/15/16 10/15/16 10/15/16 07:00 15:00 23:00 07:00 15:00 23:00 Intake Total 720 ml 600 ml 1200 ml Output Total 700 ml Balance 720 ml -100 ml 1200 ml Intake Oral 720 ml 0 ml 1200 ml IV Total 600 ml Output Urine Total 700 ml # Voids 3 6 # Bowel Movements 1 Result Diagram: 10/15/16 0557 10/15/16 0557 Imaging Last Impressions Breast Ultrasound 10/15/16 0000 Signed Impressions: Service Date/Time: Saturday, October 15, 2016 11:33 - CONCLUSION: Continued abnormal appearance of the breast parenchyma at 2:00-4:00 without hypervascularity and without drainable fluid collections. Bryan House MD Objective Remarks GENERAL: Well-developed well-nourished. In no acute distress. SKIN: Warm and dry. Right breast with significant swelling, erythema, warmth, superior induration; no fluctuance noted, nipple is inverted without drainage. HEENT: Normocephalic. Pupils equal and round. Mucous membranes pink and moist. CARDIOVASCULAR: Regular rate and rhythm. No murmur appreciated. RESPIRATORY: No accessory muscle use. Clear to auscultation. Breath sounds equal bilaterally. GASTROINTESTINAL: Abdomen soft, non-tender, nondistended. Bowel sounds x4. MUSCULOSKELETAL: No obvious deformities. No clubbing or cyanosis. No edema. NEUROLOGICAL: Awake and alert. No focal neurological deficits. Moves upper and lower extremities spontaneously. Normal speech. PSYCHIATRIC: Appropriate mood and affect; insight and judgment normal. Procedures None Medications and IVs Current Medications Medications (Trade) Dose Ordered Sig/Therese Route Start Time Stop Time Status Last Admin (NS Flush) 2 ml UNSCH PRN IV FLUSH 10/12/16 22:30 (NS Flush) 2 ml BID IV FLUSH 10/13/16 09:00 10/15/16 10:17 (Zofran Inj) 4 mg Q6H PRN IVP 10/12/16 22:30 (Tylenol) 650 mg Q6H PRN PO 10/12/16 22:30 (Soraya-Colace) 1 tab BID PO 10/13/16 09:00 10/15/16 10:14 (Milk Of Magnesia Liq) 30 ml Q12H PRN PO 10/12/16 22:30 (Senokot) 17.2 mg Q12H PRN PO 10/12/16 22:30 (Dulcolax Supp) 10 mg DAILY PRN RECTAL 10/12/16 22:30 (Lactulose Liq) 30 ml DAILY PRN PO 10/12/16 22:30 (Adderall) 5 mg DAILY PO 10/13/16 09:00 10/15/16 10:14 (KlonoPIN) 1 mg BID PO 10/13/16 09:00 10/15/16 10:14 Patient Own Medication PT OWN MED: (Desvenlafaxine ER 24... DAILY PO 10/13/16 09:00 Hold (Cleocin Inj/NS Inj) 106 ml @ 212 mls/hr Q8HR IV 10/13/16 06:00 10/15/16 14:31 (Lactinex) 1 tab Q12HR PO 10/13/16 09:00 10/15/16 10:14 (Percocet 7.5-325 Mg) 1 tab Q4H PRN PO 10/13/16 17:15 10/15/16 14:45 (Dilaudid Pf Inj) 0.5 mg Q4H PRN IV PUSH 10/13/16 17:15 10/15/16 01:13 (Naprosyn) 500 mg Q12HR PO 10/14/16 09:00 10/15/16 10:14 Urinary Catheter: No Vascular Central Line Catheter: No A/P Problem List: (1) Mastitis ICD Code: N61.0 Status: Acute Plan: Unclear etiology, no trauma/piercing/. Acute onset of right breast pain/swelling x2 days, s/p Cipro/Bactrim po x1 day, IM Abx and Toradol today w/ minimal improvement. Afebrile, no leukocytosis. Breast w/ obvious infection on exam, no fluctuance noted. Breast US w/ thickened and hyperechogenic soft tissue measuring 5 cm without drainable fluid collection and dilated ducts with increased flow also without drainable fluid collections, images reviewed by me. S/p Clinda in ER. Will continue w/ IV Abx, transition to PO by time of discharge. Pt instructed to follow up w/ PCP for Mammogram to eval for possible underlying mass once acute infection resolved. General surgery consulted, appreciate recommendations. No surgical intervention at this time recommended. Ultrasound of the right breast ordered. If there is no abscess then will discharge patient home on oral antibiotics. (2) JUANITA (acute kidney injury) ICD Code: N17.9 Status: Resolved Plan: Creatinine 1.17 on admission Due to prerenal azotemia due to reported poor oral intake. Resolved after IVF administration. Continue to monitor BMP, strict I's and O's. Discontinue IV fluids. (3) Dehydration ICD Code: E86.0 Status: Resolved Plan: Patient treated with IV fluids. Patient now hydrated and able to tolerate by mouth. (4) Hypotension ICD Code: I95.9 Status: Resolved (5) Tobacco abuse ICD Code: Z72.0 Status: Chronic Plan: Advised smoking cessation. Assessment and Plan DVt prophylaxis: Encourage ambulation since patient is ambulatory , SCD's. Problem Qualifiers (1) Hypotension: Qualified Code: I95.2 - Hypotension due to drugs Dionicio Mccallum MD Oct 15, 2016 16:57
[2016-10-15] MEDS ORDERED: OXYC1TAB35 PO (18:03)
[2016-10-15] MEDS ORDERED: LACT PO (18:03)
[2016-10-15] MEDS ORDERED: CLIN1CAP6 PO (18:03)
--- NOTE | 2016-10-15 18:03 | HHI.DCPOC ---
Discharge Care Plan Diagnosis: (1) Mastitis (2) Tobacco abuse (3) Dehydration (4) Hypotension (5) JUANITA (acute kidney injury) Goals to Promote Your Health * To prevent worsening of your condition and complications * To maintain your health at the optimal level Directions to Meet Your Goals Take your medications as prescribed Follow your dietary instruction Follow activity as directed Keep your appointments as scheduled Take your immunizations and boosters as scheduled If your symptoms worsen call your PCP, if no PCP go to Urgent Care Center or Emergency Room Smoking is Dangerous to Your Health. Avoid second hand smoke Call the 24-hour hour crisis hotline for domestic abuse at Dionicio Mccallum MD Oct 15, 2016 18:03
--- NOTE | 2016-10-15 18:05 | HHI.DS ---
Discharge Summary Admission Date Oct 13, 2016 at 07:42 Discharge Date: Oct 15, 2016 Admitting Diagnosis mastitis (1) Mastitis ICD Code: N61.0 Diagnosis: Principal (2) JUANITA (acute kidney injury) ICD Code: N17.9 Diagnosis: Principal (3) Dehydration ICD Code: E86.0 Diagnosis: Principal (4) Hypotension ICD Code: I95.9 Diagnosis: Principal (5) Tobacco abuse ICD Code: Z72.0 Diagnosis: Principal Procedures None Brief History - From Admission This is a 41-year-old female with a PMH of Anxiety, Depression, ADHD and Tobacco Abuse who presented to the ER with complaints of right breast pain and swelling x2 days. States she noted right breast tenderness on which got progressively worse throughout the day (has photos in phone documenting progression). Presented to yesterday for ongoing symptoms, states she was given IV abx and discharged w/ Cipro/Bactrim-has taken a total of 4 doses. Today, noted worsening redness and pain and presented to Urgent Care. Given unknown IV Abx and Toradol w/ minimal relief. Presented here for ongoing complaints. No trauma, injury, piercing, not . Reports similar symptoms on left breast approx 7yrs ago which resolved after IV Abx. Denies fever, chills. On arrival, BP 109 and 59, HR 89, O2 sat 98% on RA, Afebrile. While in ER has had episodes of transient hypotension following Morphine with BP 92/54, HR 83, asymptomatic. Creatinine 1.17, no previous labs for comparison. GFR 51. INR 1.0. Breast US with thickened and hyperechogenic soft tissue measuring 5 cm without drainable fluid collection, dilated ducts and increased flow in the parenchyma also without drainable fluid collections. S/p Clinda in ER. CBC/BMP: 10/15/16 0557 10/15/16 0557 Significant Findings Laboratory Tests Test 10/12/16 10/13/16 10/15/16 18:10 15:57 05:57 Neutrophils (%) (Auto) 73.2 % (16.0-70.0) Activated Partial 32.5 SEC Thromboplast Time (24.3-30.1) Creatinine 1.17 MG/DL (0.50-1.00) Estimat Glomerular Filtration 51 ML/MIN (>89) 72 ML/MIN (>89) Rate Red Blood Count 3.93 MIL/MM3 3.99 MIL/MM3 (4.00-5.30) (4.00-5.30) Chloride Level 110 MEQ/L 109 MEQ/L (98-107) (98-107) Aspartate Amino Transf 41 U/L (15-37) (AST/SGOT) Albumin 2.7 GM/DL (3.4-5.0) Blood Urea Nitrogen 6 MG/DL (7-18) Imaging Last Impressions Breast Ultrasound 10/15/16 0000 Signed Impressions: Service Date/Time: Saturday, October 15, 2016 11:33 - CONCLUSION: Continued abnormal appearance of the breast parenchyma at 2:00-4:00 without hypervascularity and without drainable fluid collections. Bryan House MD PE at Discharge GENERAL: Well-developed well-nourished. In no acute distress. SKIN: Warm and dry. Right breast with significant swelling, erythema, warmth, superior induration; no fluctuance noted, nipple is inverted without drainage. HEENT: Normocephalic. Pupils equal and round. Mucous membranes pink and moist. CARDIOVASCULAR: Regular rate and rhythm. No murmur appreciated. RESPIRATORY: No accessory muscle use. Clear to auscultation. Breath sounds equal bilaterally. GASTROINTESTINAL: Abdomen soft, non-tender, nondistended. Bowel sounds x4. MUSCULOSKELETAL: No obvious deformities. No clubbing or cyanosis. No edema. NEUROLOGICAL: Awake and alert. No focal neurological deficits. Moves upper and lower extremities spontaneously. Normal speech. PSYCHIATRIC: Appropriate mood and affect; insight and judgment normal. Hospital Course (1) Mastitis Unclear etiology, no trauma/piercing/. Acute onset of right breast pain/swelling x2 days, s/p Cipro/Bactrim po x1 day, IM Abx and Toradol today w/ minimal improvement. Afebrile, no leukocytosis. Breast w/ obvious infection on exam, no fluctuance noted. Breast US w/ thickened and hyperechogenic soft tissue measuring 5 cm without drainable fluid collection and dilated ducts with increased flow also without drainable fluid collections, images reviewed by me. S/p Clinda in ER. Will continue w/ IV Abx, transition to PO by time of discharge. Pt instructed to follow up w/ PCP for Mammogram to eval for possible underlying mass once acute infection resolved. General surgery consulted. No surgical intervention at this time recommended. Ultrasound of the right breast ordered. If there is no abscess then will discharge patient home on oral antibiotics. (2) JUANITA (acute kidney injury) Creatinine 1.17 on admission Due to prerenal azotemia due to reported poor oral intake. Resolved after IVF administration. Continue to monitor BMP, strict I's and O's. Discontinue IV fluids. (3) Dehydration Patient treated with IV fluids. Patient now hydrated and able to tolerate by mouth. (4) Hypotension Resolved after IV fluid administration. (5) Tobacco abuse Advised smoking cessation. DVt prophylaxis: Encouraged ambulation since patient was ambulatory , SCD's. Pt Condition on Discharge: Stable Discharge Disposition: Discharge Home Discharge Time: <= 30 minutes Discharge Instructions DIET: Follow Instructions for: As Tolerated, No Restrictions Activities you can perform: Regular-No Restrictions Activities to Avoid: Contact Sports, Lifting/Bending Follow up Referrals: Surgical - 2 Weeks with Luis Loera MD New Medications: Clindamycin (Clindamycin) 300 Mg Cap 300 MG PO Q6H Infection #32 Ref 0 CAP Lactobacillus Acidophilus (Acidophilus/l-Sporogenes) 1 Tab Tab 1 TAB PO Q12HR Infection #20 TAB Oxycodone-Acetaminophen (Oxycodone-Acetaminophen) 7.5-325 mg Tab 1 TAB PO Q4H PRN pain #30 TAB Continued Medications: Amphetamine-Dextroamphetamine (Adderall) 5 Mg Tab 5 MG PO DAILY Avoid late evening doses. Space doses at least 4 to 6 hours if more than once/day dosing. Hyperactivity Control #30 Ref 0 TAB Clonazepam (Klonopin) 1 Mg Tab 1 MG PO BID #60 Ref 0 TAB Desvenlafaxine ER 24 HR (Khedezla 24 HR) 50 Mg Tab 25 MG PO DAILY Control Depression Ref 0 TAB Dionicio Mccallum MD Oct 15, 2016 18:05
[2016-10-15] MEDS ORDERED: FLUC150T PO (18:10)
== END 2016-10-15 19:01 | disposition home or self-care (01) | DRG 600 ==
LOC: NEPD 17:30 → NEDA 22:24 → NEPHCDU 23:26 → OBSVTOIN 10-13 07:42 → HOCA 10-13 11:28
PROVIDERS: ADMIT Hospitalist; ATTEND Hospitalist
DX: N61.0 Mastitis without abscess (principal); N17.9 Acute kidney failure, unspecified; I95.2 Hypotension due to drugs; T40.2X5A Adverse effect of other opioids, initial encounter; Y92.238 Other place in hospital as the place of occurrence of the external cause; E86.0 Dehydration; F17.210 Nicotine dependence, cigarettes, uncomplicated; F90.9 Attention-deficit hyperactivity disorder, unspecified type; F41.9 Anxiety disorder, unspecified; F32.9 Major depressive disorder, single episode, unspecified
CPT/HCPCS: 76642; 80048; 80053; 85025; 85027; 85610; 85730; 96361; 96365; 96375; 96376; G0378; J1170; J1885; J2270; J2405; J7030; J7040

== ENCOUNTER 2017-03-30 20:37 | Emergency (ER) | payer OTHER ==
[~2017-03-30] VITALS: Ht 170.2 cm; Wt 92.9 kg
[~2017-03-30 20:37] MED LIST changes: +AMPH1TAB29 PO; +CLIN300C5 PO; +CLON1 PO; +DESV5TAB PO; +FLUC150T PO; -IBUP800T23 PO; +LACT PO; +OXYC1TAB35 PO; -PROZ20CA11 PO; -TRAZ100 PO
[2017-03-30 20:51] VITALS: BP 104/66; PULSE 125; RESP 20; TEMP 98.7; O2SAT 98
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
[2017-03-30] MEDS ORDERED: IBUPROFEN 600 MG TAB PO ONE (22:30)
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
[2017-03-30] MEDS ORDERED: traMADol/ACETAMINOPHEN 37.5/325 1 TAB PO ONE (22:45)
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
[2017-03-31 00:08] VITALS: BP 115/65; PULSE 82; RESP 18; O2SAT 100
[2017-03-31] MEDS ORDERED: PERC5TAB12 PO (00:11)
[2017-03-31] MEDS ORDERED: oxyCODONE/ACETAMINOPHEN 5 MG/325 MG TAB PO ONE (00:15)
== END 2017-03-31 00:55 | disposition home or self-care (01) ==
LOC: PHEFT 20:37
DX: S82.141A Displaced bicondylar fracture of right tibia, initial encounter for closed fracture (principal); S09.93XA Unspecified injury of face, initial encounter; V89.2XXA Person injured in unspecified motor-vehicle accident, traffic, initial encounter
CPT/HCPCS: 70140; 70450; 70486; 72125; 73564; 73590; 73700; 99285; E0113; L1830

== ENCOUNTER 2017-04-07 13:09 | Emergency (ER) | payer SELFPAY ==
[~2017-04-07 13:09] MED LIST changes: -AMPH1TAB29 PO; -CLIN300C5 PO; -CLON1 PO; -DESV5TAB PO; -FLUC150T PO; -LACT PO; -OXYC1TAB35 PO; +PERC5TAB12 PO
[2017-04-07 13:19] VITALS: BP 123/76; PULSE 82; RESP 20; TEMP 98.4; O2SAT 98
== END 2017-04-07 14:40 | disposition left against medical advice (07) ==
LOC: PHED 13:09
DX: M25.561 Pain in right knee (principal); Z53.21 Procedure and treatment not carried out due to patient leaving prior to being seen by health care provider
CPT/HCPCS: 99281

== ENCOUNTER 2018-01-03 15:58 | Inpatient (IN) ==
--- NOTE | 2018-01-03 16:36 | ED ---
HPI General Chief complaint: Skin/Abscess/Foreign Body Stated complaint: abnormal labs Time Seen by Provider: 01/03/18 16:22 Source: patient, RN notes reviewed and old records reviewed Mode of arrival: ambulatory History of Present Illness HPI narrative: 42 y/o female presents from [facility] with elevated white count and concern for possible infection. She notes a couple abscess-like areas to her legs. She denies any other concurrent complaints but states she last used IV drugs 2 days ago. Patient notes that she also tripped and fell while going to rehab and injured her right foot and left ankle as well as her left ribs. She states she did not hit her head or blackout and denies other complaints in regards to the fall. Onset (ago): day(s) Location: LLE and RLE Severity: mild Pain Consistency: constant Exacerbating factors: palpation Context: IVDA Associated symptoms: denies other symptoms Related Data Allergies Allergy/AdvReac Type Severity Reaction Status Date / Time No Known Allergies Allergy Unverified 01/03/18 16:03 Review of Systems ROS: all other systems reviewed are negative PMFSH History History Provided By: Patient (IVDA) Medical History Medical History (Acute) IV drug abuse (Acute) Surgical History Surgical History H/O knee surgery (Acute) Hx of breast biopsy (Acute) Social History Social History Substance History: Active Abuse Second Hand Smoke Exposure: Yes Smoking Status: Current every day smoker Tobacco Type: Cigarettes How Often Do You Have a Drink Containing Alcohol: Monthly or less Recent Travel in [facility] within the Last 8 Weeks: No Recent Out of Country Travel within the Last 8 Weeks: No Exam Narrative Exam Narrative: GENERAL: 42 y/o female in no apparent distress SKIN: Focused skin assessment warm/dry. Patient has multiple healing skin lesions noted to her bilateral lower extremities without signs of active cellulitis or abscess HEAD: Atraumatic. Normocephalic. EYES: Pupils equal and round. No scleral icterus. No injection or drainage. ENT: No nasal bleeding or discharge. Mucous membranes pink and moist. NECK: Trachea midline. CARDIOVASCULAR: Regular rate and rhythm. RESPIRATORY: No accessory muscle use. Clear to auscultation. Breath sounds equal bilaterally. GASTROINTESTINAL: Abdomen soft, non-tender, nondistended. MUSCULOSKELETAL: No obvious deformities. No clubbing. No cyanosis. No edema. NEUROLOGICAL: Awake and alert. Motor grossly within normal limits. Normal speech. Course Reevaluation(s) Reevaluation #1: patient updated and agrees to admit Consultations Consultation #1: dr arauz agrees to admit Initial Documented Vital Signs Temperature 98.3 F 01/03/18 16:03 Pulse Rate 112 H 01/03/18 16:03 Respiratory Rate 19 01/03/18 16:03 Blood Pressure 120/69 01/03/18 16:03 Pulse Oximetry 99 01/03/18 16:03 Last Documented Vital Signs Temperature 98.3 F 01/03/18 16:03 Pulse Rate 105 H 01/03/18 16:30 Respiratory Rate 18 01/03/18 16:30 Blood Pressure 99/56 L 01/03/18 16:30 Pulse Oximetry 100 01/03/18 16:30 Medical Decision Making MDM Narrative Medical decision making narrative: Will check trauma imaging, check sepsis workup given IV drug use and reevaluate Medical Screen Exam Complete: Yes Emergency Medical Condition: Yes Differential Diagnosis Differential Diagnosis: Abscess, cellulitis, fracture, strain Lab Data Lab results reviewed: Yes I reviewed the patient's lab results. Result diagrams: 01/03/18 16:30 01/03/18 16:30 Lab Results 01/03/18 01/03/18 01/03/18 Range/Units 16:30 16:30 16:30 WBC 10.4 (4.0-11.0) th/mm3 RBC 4.21 (4.00-5.30) mil/mm3 Hgb 11.5 L (11.6-15.3) gm/dL Hct 34.9 L (35.0-46.0) % MCV 83.0 (80.0-100.0) fL MCH 27.3 (27.0-34.0) pg MCHC 32.9 (32.0-36.0) % RDW 18.7 H (11.6-17.2) % Plt Count 162 (150-450) th/mm3 MPV 7.7 (7.0-11.0) fL Prelim Diff (Auto) Slide review pending Neut % (Auto) 83.9 H (16.0-70.0) % Lymph % (Auto) 8.1 L (9.0-44.0) % [place] % (Auto) 7.6 (0.0-8.0) % Eos % (Auto) 0.1 (0.0-4.0) % Baso % (Auto) 0.3 (0.0-2.0) % Neut # (Auto) 8.7 H (1.8-7.7) th/mm3 Lymph # (Auto) 0.8 L (1.0-4.8) th/mm3 [place] # (Auto) 0.8 (0.0-0.9) th/mm3 Eos # (Auto) 0.0 (0.0-0.4) th/mm3 Baso # (Auto) 0.0 (0.0-0.2) th/mm3 WBC Differential Manual diff final Seg Neuts % (Manual) 56 (16-70) % Band Neuts % (Manual) 32 H (0-6) % Lymphocytes % (Manual) 5 L (9-44) % Monocytes % (Manual) 7 (0-8) % Abs Neuts (Manual) 9.2 H (1.8-7.7) th/mm3 Differential Comment . Toxic Vacuolation Present H (None) Platelet Estimate Normal (Normal) Platelet Morphology Normal (Normal) RBC Morphology Normal (Normal) PT 10.5 (9.8-11.6) sec INR 1.0 Ratio APTT 32.5 H (24.3-30.1) sec Sodium 139 (136-145) meq/L Potassium 5.3 H (3.5-5.1) meq/L Chloride 110 H (98-107) meq/L Carbon Dioxide 21.9 (21.0-32.0) meq/L Anion Gap 7 (5-15) meq/L BUN 17 (7-18) mg/dL Creatinine 0.97 (0.50-1.00) mg/dL Estimated GFR 64 L (>89) mL/min Random Glucose 133 H (74-106) mg/dL Lactic Acid (0.4-2.0) mmol/L Calcium 8.5 (8.5-10.1) mg/dL Magnesium 2.2 (1.5-2.5) mg/dL Total Bilirubin 1.3 H (0.2-1.0) mg/dL AST 73 H (15-37) U/L ALT 75 H (10-53) U/L Alkaline Phosphatase 267 H (45-117) U/L Total Protein 6.6 (6.4-8.2) g/dL Albumin 2.1 L (3.4-5.0) g/dL 01/03/18 Range/Units 16:46 WBC (4.0-11.0) th/mm3 RBC (4.00-5.30) mil/mm3 Hgb (11.6-15.3) gm/dL Hct (35.0-46.0) % MCV (80.0-100.0) fL MCH (27.0-34.0) pg MCHC (32.0-36.0) % RDW (11.6-17.2) % Plt Count (150-450) th/mm3 MPV (7.0-11.0) fL Prelim Diff (Auto) Neut % (Auto) (16.0-70.0) % Lymph % (Auto) (9.0-44.0) % [place] % (Auto) (0.0-8.0) % Eos % (Auto) (0.0-4.0) % Baso % (Auto) (0.0-2.0) % Neut # (Auto) (1.8-7.7) th/mm3 Lymph # (Auto) (1.0-4.8) th/mm3 [place] # (Auto) (0.0-0.9) th/mm3 Eos # (Auto) (0.0-0.4) th/mm3 Baso # (Auto) (0.0-0.2) th/mm3 WBC Differential Seg Neuts % (Manual) (16-70) % Band Neuts % (Manual) (0-6) % Lymphocytes % (Manual) (9-44) % Monocytes % (Manual) (0-8) % Abs Neuts (Manual) (1.8-7.7) th/mm3 Differential Comment Toxic Vacuolation (None) Platelet Estimate (Normal) Platelet Morphology (Normal) RBC Morphology (Normal) PT (9.8-11.6) sec INR Ratio APTT (24.3-30.1) sec Sodium (136-145) meq/L Potassium (3.5-5.1) meq/L Chloride (98-107) meq/L Carbon Dioxide (21.0-32.0) meq/L Anion Gap (5-15) meq/L BUN (7-18) mg/dL Creatinine (0.50-1.00) mg/dL Estimated GFR (>89) mL/min Random Glucose (74-106) mg/dL Lactic Acid 2.1 H (0.4-2.0) mmol/L Calcium (8.5-10.1) mg/dL Magnesium (1.5-2.5) mg/dL Total Bilirubin (0.2-1.0) mg/dL AST (15-37) U/L ALT (10-53) U/L Alkaline Phosphatase (45-117) U/L Total Protein (6.4-8.2) g/dL Albumin (3.4-5.0) g/dL Imaging Data Attestation: I personally reviewed and interpreted this imaging study as follows : Radiologist's impression: Ankle X-Ray 01/03/18 16:29 CONCLUSION: No acute left ankle abnormality is identified. Chest X-Ray 01/03/18 16:29 CONCLUSION: Patchy and somewhat nodular areas of airspace consolidation within the left upper lobe. Although nonspecific, this could represent an infectious process in the appropriate clinical setting. Suggest follow-up imaging to confirm resolution of this finding. If there are no clinical findings to suggest infection, chest CT may offer additional characterization. Foot X-Ray 01/03/18 16:29 CONCLUSION: No evidence of recent bony injury. Mild soft tissue swelling along the dorsum of the midfoot. Discharge Plan Discharge Disposition Patient Disposition: 30 Still Patient Discharge Condition Condition: Stable Discharge Details Diagnosis: Sepsis, Pneumonia, IVDU (intravenous drug user) Physicians Team ED Provider: Tejal Stewart Primary Care Provider: Primary Care Ana Mariai,No Discharge Interventions Interventions: Vital Signs Last Done: 01/03/18 16:30 Status ED Status: Admitted Patient
[2018-01-03] MEDS ORDERED: Sod Chloride 0.9% Inj 1,000 ML IV.SIG SCH ×4 (16:45→18:15)
[2018-01-03 17:13] LABS: Baso % (Auto) 0.3 % (0.0-2.0); Eos % (Auto) 0.1 % (0.0-4.0); Hematocrit 34.9 % (35.0-46.0); Hemoglobin 11.5 gm/dL (11.6-15.3); Lymph # (Auto) 0.8 th/mm3 (1.0-4.8); Lymph % (Auto) 8.1 % (9.0-44.0); Mean Corpuscular HGB Conc 32.9 % (32.0-36.0); Mean Corpuscular Hemoglobin 27.3 pg (27.0-34.0); Mean Platelet Volume 7.7 fL (7.0-11.0); Mono # (Auto) 0.8 th/mm3 (0.0-0.9); Mono % (Auto) 7.6 % (0.0-8.0); Neut # (Auto) 8.7 th/mm3 (1.8-7.7); Neut % (Auto) 83.9 % (16.0-70.0); Platelet Count 162 th/mm3 (150-450); Red Blood Count 4.21 mil/mm3 (4.00-5.30); Red Cell Distribution Width 18.7 % (11.6-17.2); White Blood Count 10.4 th/mm3 (4.0-11.0)
[2018-01-03 17:34] LABS: Alkaline Phosphatase 267 U/L (45-117); Total Protein 6.6 g/dL (6.4-8.2)
[2018-01-03 17:37] LABS: Activated Partial Thrombo Time 32.5 sec (24.3-30.1); Prothrombin Time 10.5 sec (9.8-11.6)
--- NOTE | 2018-01-03 17:38 | XR ---
EXAM DATE: 01/03/2018 5:33 PM EDT AGE/SEX: 42 years / Female INDICATIONS: Left ankle pain, post fall. CLINICAL DATA: This is the patient's initial encounter. Patient reports that signs and symptoms have been present for 3 days and indicates a pain score of 6/10. MEDICAL/SURGICAL HISTORY: None. None. COMPARISON: No prior exams available for comparison. FINDINGS: Three views of the left ankle demonstrate no fracture or dislocation. The ankle mortise is intact. Mi neralization is within normal limits and there is no significant arthropathy. No soft tissue abnormal ity or radiopaque foreign body is identified. CONCLUSION: No acute left ankle abnormality is identified. Electronically signed by: Jose Bedoya MD 01/03/2018 5:37 PM EDT
--- NOTE | 2018-01-03 17:38 | XR ---
EXAM DATE: 01/03/2018 5:32 PM EDT AGE/SEX: 42 years / Female INDICATIONS: Right foot pain, post fall. CLINICAL DATA: This is the patient's initial encounter. Patient reports that signs and symptoms have been present for 3 days and indicates a pain score of 8/10. MEDICAL/SURGICAL HISTORY: None. None. COMPARISON: [facility], TIBIA/FIBULA RIGHT (AP/LAT), 03/30/2017. . FINDINGS: Bony structures are intact and in normal alignment. Osseous density is normal. Mild soft tissue swell ing is seen along the dorsum of the midfoot.. No radiopaque foreign bodies seen. CONCLUSION: No evidence of recent bony injury. Mild soft tissue swelling along the dorsum of the midfoot. Electronically signed by: Reno Solo MD 01/03/2018 5:37 PM EDT
[2018-01-03 17:40] LABS: Alanine Aminotransferase 75 U/L (10-53); Albumin 2.1 g/dL (3.4-5.0); Anion Gap 7 meq/L (5-15); Aspartate Aminotransferase 73 U/L (15-37); Blood Urea Nitrogen 17 mg/dL (7-18); Calcium 8.5 mg/dL (8.5-10.1); Carbon Dioxide 21.9 meq/L (21.0-32.0); Chloride 110 meq/L (98-107); Glomerular Filtration Rate 64 mL/min (>89); Glucose,Random 133 mg/dL (74-106); Magnesium 2.2 mg/dL (1.5-2.5); Sodium 139 meq/L (136-145)
--- NOTE | 2018-01-03 17:41 | XR ---
EXAM DATE: 01/03/2018 5:35 PM EDT AGE/SEX: 42 years / Female INDICATIONS: . Shortness of breath. CLINICAL DATA: This is the patient's initial encounter. Patient reports that signs and symptoms have been present for 3 days and indicates a pain score of 0/10. MEDICAL/SURGICAL HISTORY: None. None. COMPARISON: No prior exams available for comparison. FINDINGS: Frontal and lateral views of the chest demonstrate a normal-sized cardiac silhouette. There are patch y and somewhat nodular areas of airspace consolidation in the left upper lobe. No pleural effusion or pneumothorax is identified. There is fullness of the left hilum on the frontal projection but no def inite enlargement is seen on the lateral view suggesting that is projectional. The bones and soft tis sues demonstrate no acute abnormality. CONCLUSION: Patchy and somewhat nodular areas of airspace consolidation within the left upper lobe. Although nons pecific, this could represent an infectious process in the appropriate clinical setting. Suggest foll ow-up imaging to confirm resolution of this finding. If there are no clinical findings to suggest inf ection, chest CT may offer additional characterization. Electronically signed by: Jose Bedoya MD 01/03/2018 5:40 PM EDT
[2018-01-03] MEDS ORDERED: Vancomycin Inj 1,000 MG in Sodium Chlor 0.9% Inj 250 ML IV.SIG STA (17:43)
[2018-01-03] MEDS ORDERED: Azithromycin Inj 500 MG in Sodium Chlor 0.9% Inj 250 ML IV.SIG STA (17:43)
[2018-01-03] MEDS ORDERED: Piperacil/Tazo 4.5 GM Premix 4.5 GM/100 ML BAG IV.SIG STA (17:43)
[2018-01-03 17:47] LABS: Lymphocytes 5 % (9-44); Monocytes 7 % (0-8); RBC Morphology Normal (Normal)
[2018-01-03 17:48] LABS: Platelet Estimate Normal (Normal); Platelet Morphology Normal (Normal); Toxic Vacuolation Present
[2018-01-03 17:57] LABS: Potassium 5.3 meq/L (3.5-5.1)
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
[2018-01-03] MEDS ORDERED: Acetaminophen 325 MG Tablet PO PRN (18:52)
[2018-01-03] MEDS ORDERED: Bisacodyl 10 MG Supp RECTAL PRN (18:52)
--- NOTE | 2018-01-03 19:32 | CT ---
EXAM DATE: 01/03/2018 7:11 PM EDT AGE/SEX: 42 years / Female INDICATIONS: Short of breath. Left chest pain, trip and fall 2 days ago. Abnormal chest x-ray. CLINICAL DATA: This is the patient's initial encounter. Patient reports that signs and symptoms have been present for 2 days and indicates a pain score of 10/10. MEDICAL/SURGICAL HISTORY: None. None. RADIATION DOSE: 5.23 CTDI (mGy) COMPARISON: No prior exams available for comparison. TECHNIQUE: Multiple contiguous axial images were obtained through the chest during bolus infusion of 55 ml Omnipaque 350 (iohexol) nonionic water-soluble contrast as a single exam dose. Images were obtained in suspended respiration using multiple row detector helical technique. Using automated exp osure control and adjustment of the mA and/or kV according to patient size, radiation dose was kept a s low as reasonably achievable to obtain optimal diagnostic quality images. DICOM format image data is available electronically for review and comparison. FINDINGS: Lungs: Subsegmental infiltrates are identified in both lungs. Focal areas of rounded consolidation i dentified in both lower lobes. In the medial basilar segment of the left lower lobe there is cavitati on within the rounded area of consolidation. Air-fluid levels noted. Mediastinum: There is good visualization of the great vessels of the middle mediastinum. No evidenc e of mediastinal or hilar adenopathy/mass. Pleurae: Focal pleural thickening is identified along the posterolateral margin of the left lower lo be. No significant free fluid is identified. Axillae: Mildly enlarged lymph nodes are identified in both axillary regions. The lymph nodes range in size up to 11 mm in short axis diameter. Bony Structures: Unremarkable. Miscellaneous: A moderate size wedge-shaped area is identified in the mid spleen along the posterior capsular margin. CONCLUSION: 1. Bilateral subsegmental pulmonary infiltrates and rounded areas of consolidation in both lower lob es one of which is demonstrating cavitation in the left lower lobe. Findings are most characteristic of infectious/inflammatory process and septic emboli. 2. Wedge-shaped defect in the spleen which may also represent vascular occlusive disease from emboli sm. 3. Developing pleural thickening along the posterolateral margin of the left lower lobe. Electronically signed by: Reno Solo MD 01/03/2018 7:31 PM EDT
[2018-01-03 20:31] LABS: Amphetamine Screen,Urine Neg (Neg); Barbiturate Screen,Urine Neg (Neg); Cannabinoid Screen,Urine Neg (Neg); Cocaine Screen,Urine Neg (Neg)
[2018-01-03 20:32] LABS: Bilirubin,Urine Negative (Negative); Clarity,Urine Clear (Clear); Color,Urine Yellow (Yellw/Straw); Glucose,Urine (UA) Negative (Negative); Leukocyte Esterase,Urine Negative (Negative); Nitrite,Urine Negative (Negative); Renal Epithelial Cells,Urine <1 /hpf; Specific Gravity,Urine 1.014 (1.002-1.035)
[2018-01-03 20:44] LABS: Opiate Screen,Urine Neg (Neg)
[2018-01-03] MEDS ORDERED: Enoxaparin Inj 40 MG/0.4 ML Syringe SQ SCH (21:00)
[2018-01-03] MEDS: Sodium Chloride 0.45 % Inj 1,000 ML IV.CONT SCH (21:46)
[2018-01-03] MEDS: Ketorolac Inj 30 MG/ML (IVP) Vial IV.PUSH SCH (21:47)
[2018-01-03] MEDS: Enoxaparin Inj 40 MG/0.4 ML Syringe SQ SCH (21:48)
[2018-01-03] MEDS: Senna/Docusate Sodium 8.6/50 MG Tablet PO SCH (21:49)
[2018-01-04] MEDS: Piperacil/Tazo 4.5 GM Premix 4.5 GM/100 ML BAG IV.SIG SCH ×4 (01:31→21:13)
[2018-01-04] MEDS: Ketorolac Inj 30 MG/ML (IVP) Vial IV.PUSH SCH ×4 (01:31→21:14)
[2018-01-04] MEDS: Senna/Docusate Sodium 8.6/50 MG Tablet PO SCH ×2 (08:16→21:13)
[2018-01-04] MEDS ORDERED: Vancomycin Inj 1,000 MG in Sodium Chlor 0.9% Inj 250 ML IV.SIG SCH (09:00)
[2018-01-04] MEDS ORDERED: Vancomycin Inj 1 GM/200 ML PIGGYBACK IV.SIG SCH (09:00)
[2018-01-04] MEDS: Sodium Chloride 0.45 % Inj 1,000 ML IV.CONT SCH ×2 (10:00→21:16)
--- NOTE | 2018-01-04 12:30 | P.PNIM ---
Subjective Interval history: Patient says she continues to feel short of breath, however slightly better than yesterday. Generalized weakness continues. Denies any worsening from yesterday however. Physical Exam Vital signs: Vital Signs 01/03/18 16:03 01/03/18 16:30 01/03/18 18:52 Temperature 98.3 F Pulse Rate 112 H 105 H 105 H Respiratory Rate 19 18 19 Blood Pressure 120/69 99/56 L 123/65 Pulse Oximetry 99 100 01/03/18 19:08 01/03/18 20:00 01/03/18 20:06 Temperature 97.2 F L Pulse Rate 101 H 105 H Respiratory Rate 20 Blood Pressure 107/70 123/65 Pulse Oximetry 100 97 01/04/18 00:00 01/04/18 08:00 Temperature 98 F 97.7 F Pulse Rate 109 H 103 H Respiratory Rate 20 20 Blood Pressure 113/59 L 101/58 L Pulse Oximetry 99 98 Intake & Output 01/03/18 01/04/18 01/04/18 18:59 06:59 18:59 Intake Total 4600 / 4600 450 / 450 Output Total 300 / 300 Balance 4300 / 4300 450 / 450 Weight 72.575 kg Intake: IV 4600 / 4600 450 / 450 Azithromycin Inj 500 MG In NS 250 / 250 Inj 250 ML @ 250 mls/hr IV.SIG STAT STA Rx#:[id number] Zosyn 4.5 GM Premix 4.5 gm In 100 / 100 100 / 100 100 ml @ 200 mls/hr IV.SIG Q6H MARCIA Rx#:[id number] NS Inj 1,000 ML @ Wide Open IV. 4000 / 4000 SIG BOLUS MARCIA Rx#:[id number] Vancomycin Inj 1,000 MG In NS 250 / 250 250 / 250 Inj 250 ML @ 200 mls/hr IV.SIG Q12H MARCIA Rx#:[id number] Output: Urine 300 / 300 Narrative: GENERAL: Patient lying in bed. Appears uncomfortable. SKIN: Warm and dry. HEAD: Normocephalic. EYES: No scleral icterus. No injection or drainage. NECK: Supple, trachea midline. No JVD. CARDIOVASCULAR: Regular rate and rhythm without murmurs, gallops, or rubs. RESPIRATORY: Breath sounds equal bilaterally. No accessory muscle use. GASTROINTESTINAL: Abdomen soft, non-tender, nondistended. MUSCULOSKELETAL: No cyanosis. Trace bilateral lower extremity edema with erythema. Dorsum of right foot with erythema. BACK: Nontender without obvious deformity. No CVA tenderness. Results - Labs CBC & Chem 7: 01/03/18 16:30 01/03/18 19:39 Laboratory Results - last 24 hr 01/03/18 01/03/18 01/03/18 16:30 16:30 16:30 WBC 10.4 RBC 4.21 Hgb 11.5 L Hct 34.9 L MCV 83.0 MCH 27.3 MCHC 32.9 RDW 18.7 H Plt Count 162 MPV 7.7 Prelim Diff (Auto) Slide review pending Neut % (Auto) 83.9 H Lymph % (Auto) 8.1 L [place] % (Auto) 7.6 Eos % (Auto) 0.1 Baso % (Auto) 0.3 Neut # (Auto) 8.7 H Lymph # (Auto) 0.8 L [place] # (Auto) 0.8 Eos # (Auto) 0.0 Baso # (Auto) 0.0 WBC Differential Manual diff final Seg Neuts % (Manual) 56 Band Neuts % (Manual) 32 H Lymphocytes % (Manual) 5 L Monocytes % (Manual) 7 Abs Neuts (Manual) 9.2 H Differential Comment . Toxic Vacuolation Present H Platelet Estimate Normal Platelet Morphology Normal RBC Morphology Normal PT 10.5 INR 1.0 APTT 32.5 H Sodium 139 Potassium 5.3 H Chloride 110 H Carbon Dioxide 21.9 Anion Gap 7 BUN 17 Creatinine 0.97 Estimated GFR 64 L Random Glucose 133 H Lactic Acid Calcium 8.5 Magnesium 2.2 Total Bilirubin 1.3 H AST 73 H ALT 75 H Alkaline Phosphatase 267 H Total Protein 6.6 Albumin 2.1 L Procalcitonin Beta HCG, Qual Urine Color Urine Clarity Urine pH Ur Specific [place] Urine Protein Urine Glucose (UA) Urine Ketones Urine Occult Blood Urine Nitrate Urine Bilirubin Urine Urobilinogen Ur Leukocyte Esterase Urine RBC Urine WBC Ur Renal Epithelial Cell Micro UA Comment Ur Microscopic Review Urine Culture Comments Urine Opiates Screen Ur Barbiturates Screen Ur Amphetamines Screen U Benzodiazepines Scrn Urine Cocaine Screen U Cannabinoids Screen 01/03/18 01/03/18 01/03/18 16:30 16:46 19:39 WBC RBC Hgb Hct MCV MCH MCHC RDW Plt Count MPV Prelim Diff (Auto) Neut % (Auto) Lymph % (Auto) [place] % (Auto) Eos % (Auto) Baso % (Auto) Neut # (Auto) Lymph # (Auto) [place] # (Auto) Eos # (Auto) Baso # (Auto) WBC Differential Seg Neuts % (Manual) Band Neuts % (Manual) Lymphocytes % (Manual) Monocytes % (Manual) Abs Neuts (Manual) Differential Comment Toxic Vacuolation Platelet Estimate Platelet Morphology RBC Morphology PT INR APTT Sodium Potassium 4.0 D Chloride Carbon Dioxide Anion Gap BUN Creatinine Estimated GFR Random Glucose Lactic Acid 2.1 H Calcium Magnesium Total Bilirubin AST ALT Alkaline Phosphatase Total Protein Albumin Procalcitonin Beta HCG, Qual Less than 1.0 Urine Color Urine Clarity Urine pH Ur Specific [place] Urine Protein Urine Glucose (UA) Urine Ketones Urine Occult Blood Urine Nitrate Urine Bilirubin Urine Urobilinogen Ur Leukocyte Esterase Urine RBC Urine WBC Ur Renal Epithelial Cell Micro UA Comment Ur Microscopic Review Urine Culture Comments Urine Opiates Screen Ur Barbiturates Screen Ur Amphetamines Screen U Benzodiazepines Scrn Urine Cocaine Screen U Cannabinoids Screen 01/03/18 01/03/18 01/03/18 19:39 19:39 20:00 WBC RBC Hgb Hct MCV MCH MCHC RDW Plt Count MPV Prelim Diff (Auto) Neut % (Auto) Lymph % (Auto) [place] % (Auto) Eos % (Auto) Baso % (Auto) Neut # (Auto) Lymph # (Auto) [place] # (Auto) Eos # (Auto) Baso # (Auto) WBC Differential Seg Neuts % (Manual) Band Neuts % (Manual) Lymphocytes % (Manual) Monocytes % (Manual) Abs Neuts (Manual) Differential Comment Toxic Vacuolation Platelet Estimate Platelet Morphology RBC Morphology PT INR APTT Sodium Potassium Chloride Carbon Dioxide Anion Gap BUN Creatinine Estimated GFR Random Glucose Lactic Acid 2.0 Calcium Magnesium Total Bilirubin AST ALT Alkaline Phosphatase Total Protein Albumin Procalcitonin 15.27 H Beta HCG, Qual Urine Color Yellow Urine Clarity Clear Urine pH 6.0 Ur Specific [place] 1.014 Urine Protein Negative Urine Glucose (UA) Negative Urine Ketones Negative Urine Occult Blood Small H Urine Nitrate Negative Urine Bilirubin Negative Urine Urobilinogen Less than 2 Ur Leukocyte Esterase Negative Urine RBC Less than 1 Urine WBC 2 Ur Renal Epithelial Cell <1 Micro UA Comment Culture not ind Ur Microscopic Review Not Reportable Urine Culture Comments Culture not ind Urine Opiates Screen Ur Barbiturates Screen Ur Amphetamines Screen U Benzodiazepines Scrn Urine Cocaine Screen U Cannabinoids Screen 01/03/18 20:00 WBC RBC Hgb Hct MCV MCH MCHC RDW Plt Count MPV Prelim Diff (Auto) Neut % (Auto) Lymph % (Auto) [place] % (Auto) Eos % (Auto) Baso % (Auto) Neut # (Auto) Lymph # (Auto) [place] # (Auto) Eos # (Auto) Baso # (Auto) WBC Differential Seg Neuts % (Manual) Band Neuts % (Manual) Lymphocytes % (Manual) Monocytes % (Manual) Abs Neuts (Manual) Differential Comment Toxic Vacuolation Platelet Estimate Platelet Morphology RBC Morphology PT INR APTT Sodium Potassium Chloride Carbon Dioxide Anion Gap BUN Creatinine Estimated GFR Random Glucose Lactic Acid Calcium Magnesium Total Bilirubin AST ALT Alkaline Phosphatase Total Protein Albumin Procalcitonin Beta HCG, Qual Urine Color Urine Clarity Urine pH Ur Specific [place] Urine Protein Urine Glucose (UA) Urine Ketones Urine Occult Blood Urine Nitrate Urine Bilirubin Urine Urobilinogen Ur Leukocyte Esterase Urine RBC Urine WBC Ur Renal Epithelial Cell Micro UA Comment Ur Microscopic Review Urine Culture Comments Urine Opiates Screen Neg Ur Barbiturates Screen Neg Ur Amphetamines Screen Neg U Benzodiazepines Scrn Neg Urine Cocaine Screen Neg U Cannabinoids Screen Neg Microbiology 01/03/18 16:45 Blood - Peripheral Aerobic Blood Culture - Preliminary No growth in 1 day 01/03/18 16:45 Blood - Peripheral Anaerobic Blood Culture - Preliminary gram positive cocci 01/03/18 16:35 Blood - Peripheral Aerobic Blood Culture - Preliminary No growth in 1 day 01/03/18 16:35 Blood - Peripheral Anaerobic Blood Culture - Preliminary gram positive cocci 01/03/18 20:00 Urine - Clean Catch Urine Streptococcus pneumoniae Antigen ( M - Final Presumptive negative for streptococcus pneumoniae antigen, suggesting no current or recent infection. Infection due to Streptococcus pneumoniae cannot be ruled out since the antigen present in the sample may be below the detection limit of the test. 01/03/18 20:00 Urine - Clean Catch Urine Legionella Antigen - Final Presumptive negative for Legionella pneumophila serogroup 1 antigen in urine, suggesting no recent or recurrent infection. Infection due to Legionella cannot be ruled out since other serogroups and species may cause disease, antigen may not be present in urine in early infection, and the level of antigen present in the urine may be below the detection limit of the test. - Imaging Impressions Chest CT 01/03/18 00:00 CONCLUSION: 1. Bilateral subsegmental pulmonary infiltrates and rounded areas of consolidation in both lower lobes one of which is demonstrating cavitation in the left lower lobe. Findings are most characteristic of infectious/ inflammatory process and septic emboli. 2. Wedge-shaped defect in the spleen which may also represent vascular occlusive disease from embolism. 3. Developing pleural thickening along the posterolateral margin of the left lower lobe. Ankle X-Ray 01/03/18 16:29 CONCLUSION: No acute left ankle abnormality is identified. Chest X-Ray 01/03/18 16:29 CONCLUSION: Patchy and somewhat nodular areas of airspace consolidation within the left upper lobe. Although nonspecific, this could represent an infectious process in the appropriate clinical setting. Suggest follow-up imaging to confirm resolution of this finding. If there are no clinical findings to suggest infection, chest CT may offer additional characterization. Foot X-Ray 01/03/18 16:29 CONCLUSION: No evidence of recent bony injury. Mild soft tissue swelling along the dorsum of the midfoot. Assessment and Plan - Assessment (1) Sepsis Code(s): A41.9 - Sepsis, unspecified organism Status: Acute (2) Pneumonia Code(s): J18.9 - Pneumonia, unspecified organism Status: Acute (3) IVDU (intravenous drug user) Code(s): F19.90 - Other psychoactive substance use, unspecified, uncomplicated Status: Chronic - Plan 42 year old female with history of IVDU presenting with diffuse chest pain and pain over her lower extremities and top of her right foot. CXR notable for patchy areas of consolidation and she also has a right foot cellulitis. // Sepsis //Gram-positive bacteremia. Suspected endocarditis. - Pt tachycardic with elevated bands on CBC and source of infection (PNA and R foot cellulitis) - Lactic acid elevated at 2.1 - NS 1L bolus x 2 in the ED - Given chest pain, patchy, nodular consolidations on CXR, and active IVDU, will obtain 2D echo to assess for endocarditis though I did not appreciate any murmurs on exam - Blood cultures drawn - U/A and culture ordered - See further treatment for PNA below = 01/04. Blood cultures 2 bottles positive for gram cocci. Repeat blood cultures, check echocardiogram, consult infectious disease. Continue broad- spectrum antibiotics. //Pneumonia - CXR demonstrates areas with patchy areas of consolidation in left upper lobe, images personally reviewed by me - ?septic embolis - Will obtain CT chest to further assess - Supplemental O2 - Continue vancomycin and Zosyn - Check sputum cultures - Urine legionella and pneumococcal negative. Likely secondary to septic emboli from endocarditis. Continue antibiotics as above. //R foot cellulitis - Likely secondary to injection into her foot - Vanco and Zosyn as above - R foot XR with no fractures or signs of osteo. There is some soft tissue swelling = Likely secondary to IV drug use, endocarditis. //IVDU - Counseled on cessation - Check UDS //Transaminitis - Likely combination of infection, IVDU, EtOH use -01/04. Ordered hepatitis profile. // Hyperkalemia - Potassium 5.3, likely secondary to hemolysis - Recheck potassium DVT prophylaxis: Lovenox Discharge Planning: Continues septic with gram-positive bacteremia. (1) Sepsis Qualifiers: Sepsis type: sepsis due to unspecified organism Qualified Code(s): A41.9 - Sepsis, unspecified organism (2) Pneumonia Qualifiers: Pneumonia type: due to unspecified organism Laterality: unspecified laterality Lung location: unspecified part of lung Qualified Code(s): J18.9 - Pneumonia, unspecified organism
--- NOTE | 2018-01-04 13:11 | ECG ---
Date Performed: 01/03/2018 Time Performed: 17:01:23 PTAGE: 42 years EKG: SINUS TACHYCARDIA POSSIBLE LEFT ATRIAL ENLARGEMENT ABNORMAL RHYTHM ECG NO PREVIOUS TRACING DOCTOR: Nir De La Cruz Interpretating Date/Time 01/04/2018 13:09:27
[2018-01-04] MEDS ORDERED: Vancomycin Consult Pharmacy OTHER PRN (14:53)
--- NOTE | 2018-01-04 14:53 | P.CONID ---
History of Present Illness Service: Infectious disease Consult date: 01/04/18 Requesting Physician: Morgan Barger Reason for Consult: Evaluate patient with IV drug use, possible endocarditis Primary Care Provider: No Primary Care Physician History of Present Illness: Patient seen and examined. Records reviewed. Patient is a 42-year-old female presented to the hospital complaining of significant chest pain, worse on the left than on the right. She is also complaining of pain in both lower extremity. Patient has known IV drug use and has been using both lower extremity tissue drugs. Her pain started about 4 days prior to admission at that time she had injected drugs. She has had some subjective fever and chills. She denies any cough, or congestion. She has not had any hemoptysis. She is having some shortness of breath due to the significant chest pain. Patient checked again in [facility], and she was having a lot of different complaints so patient was brought into the hospital and has been admitted. Since admission she has not had any fever. She has had multiple imaging studies. CT of the chest is showing multiple infiltrates some with cavitation suggestive of septic emboli. There is also an imaging study which showed a wedge-shaped area on the spleen, possibly an infarct. X-ray of the lower extremity did not show any abnormality of his fracture. Chest x-ray showing some mild pulmonary infiltrates. She had 2 blood cultures done and they are now reported as growing gram-positive cocci in pairs and clusters. Her urinalysis is unremarkable. Infectious disease consultation has been requested to assist with evaluation and treatment. Review of Systems Constitutional: Reports chills, Reports fever(s), Reports malaise Eyes: Denies discharge, Denies dry eyes Ears, Nose, Mouth, and Throat: Denies difficulty swallowing, Denies mouth pain, Denies nasal discharge, Denies pain with swallowing, Denies sore throat Cardiovascular: Reports chest pain, Reports chest pain at rest, Reports fast heart rate, Reports shortness of breath Respiratory: Reports shortness of breath, Denies chest congestion, Denies cough Gastrointestinal: Denies abdominal pain, Denies loose stools, Denies nausea, Denies pain with swallowing, Denies vomiting Genitourinary: Denies difficulty urinating, Denies painful urination Musculoskeletal: Reports body aches, Reports joint pain, Reports joint swelling Skin/Breast: Reports lesions, Denies rash Neurologic: Denies localized weakness PMFSH - History History Provided By: Patient - Medical History Medical History: Medical History (Last Updated 01/04/18 @ 14:52 by Laal Zavala MD) Anxiety Depression IV drug abuse Mastitis - Surgical History Surgical History: Surgical History (Last Updated 01/03/18 @ 17:28 by Marichuy Howell) H/O knee surgery Hx of breast biopsy - Family History Family History: Family History (Last Updated 01/03/18 @ 19:04 by Ida Trinidad MD) Mother Cancer Heart disease Father Cancer Heart disease - Tobacco History Second Hand Smoke Exposure: Yes Tobacco Use In Past 30 Days: Yes Smoking Status: Current every day smoker Tobacco Type: Cigarettes Packs Per Day: 1 Years Smoked: 20 - Alcohol History How Often Do You Have a Drink Containing Alcohol: Never - Substance Use History Substance History: Active Abuse - Substance Use Type Methamphetamine Status: Active Route Used: Intravenously Reason for Use: Feels Good - Travel History Recent Travel in the [place] Within the Last 8 Weeks: No Recent Travel Out of the Country Within the Last 8 Weeks: No - Immunization History Tetanus Immunization: Unsure Hx Influenza Vaccine This Season: No Medications and Allergies Active Medications: Active Medications Acetaminophen (Tylenol) 650 mg PO Q4H PRN PRN Reason: Temp > 100.4 Al Hydroxide/Mg Hydroxide (Milk Of Magnángel Liq) 30 ml PO Q12H PRN PRN Reason: Mild Constipation Bisacodyl (Dulcolax Supp) 10 mg RECTAL DAILY PRN PRN Reason: SEVERE CONSITIPATION Enoxaparin Sodium (Lovenox Inj) 40 mg SQ Q24H [facility] Last Admin: 01/03/18 21:48 Dose: 40 mg Sodium Chloride (1/2 Normal Saline Inj) 1,000 mls @ 75 mls/hr IV.CONT .[id number] [facility] Last Admin: 01/04/18 10:00 Dose: Not Given Piperacillin/Tazobactam/Dextrose (Zosyn 4.5 Gm Premix) 4.5 gm in 100 mls @ 200 mls/hr IV.SIG Q6H [facility] Last Infusion: 01/04/18 08:40 Dose: Infused Vancomycin HCl 1,000 mg/ (Sodium Chloride) 250 mls @ 200 mls/hr IV.SIG Q12H [facility] Last Infusion: 01/04/18 11:01 Dose: Infused Ketorolac Tromethamine (Toradol Inj) 30 mg IV.PUSH Q6H [facility]IA Stop: 01/08/18 19:59 Last Admin: 01/04/18 08:11 Dose: 30 mg Lactulose (Lactulose Liq) 30 ml PO DAILY PRN PRN Reason: SEVERE CONSITIPATION Ondansetron HCl (Zofran Inj) 4 mg IV.PUSH Q6H PRN PRN Reason: NAUSEA OR VOMITING Oxycodone/Acetaminophen (Percocet 5/325 Mg) 1 tab PO Q6H PRN PRN Reason: BREAKTHROUGH PAIN Last Admin: 01/04/18 09:45 Dose: 1 tab Senna/Docusate Sodium (Soraya-Colace) 1 tab PO BID [facility]IA Last Admin: 01/04/18 08:16 Dose: Not Given Sennosides (Senokot) 17.2 mg PO Q12H PRN PRN Reason: Moderate Constipation Allergies Allergy/AdvReac Type Severity Reaction Status Date / Time No Known Allergies Allergy Unverified 01/03/18 16:03 Home Medications Medication Instructions Recorded Confirmed Type clonazepam [Klonopin] 1 mg PO TID 01/03/18 01/03/18 History dextroamphetamine-amphetamine 30 mg PO BID 01/03/18 01/03/18 History [Adderall] trazodone 300 mg PO DAILY PRN 01/03/18 01/03/18 History Exam Vital signs: Vital Signs 01/03/18 16:03 01/03/18 16:30 01/03/18 18:52 Temperature 98.3 F Pulse Rate 112 H 105 H 105 H Respiratory Rate 19 18 19 Blood Pressure 120/69 99/56 L 123/65 Pulse Oximetry 99 100 01/03/18 19:08 01/03/18 20:00 01/03/18 20:06 Temperature 97.2 F L Pulse Rate 101 H 105 H Respiratory Rate 20 Blood Pressure 107/70 123/65 Pulse Oximetry 100 97 01/04/18 00:00 01/04/18 08:00 01/04/18 12:00 Temperature 98 F 97.7 F 97.5 F L Pulse Rate 109 H 103 H 104 H Respiratory Rate 20 20 20 Blood Pressure 113/59 L 101/58 L 116/63 Pulse Oximetry 99 98 97 Intake & Output 01/03/18 01/04/1801/04/18 18:59 06:59 18:59 Intake Total 4600 / 4600 450 / 450 Output Total 300 / 300 Balance 4300 / 4300 450 / 450 Weight 72.575 kg Intake: IV 4600 / 4600 450 / 450 Azithromycin Inj 500 MG In NS 250 / 250 Inj 250 ML @ 250 mls/hr IV.SIG STAT STA Rx#:[id number] Zosyn 4.5 GM Premix 4.5 gm In 100 / 100 100 / 100 100 ml @ 200 mls/hr IV.SIG Q6H MARCIA Rx#:[id number] NS Inj 1,000 ML @ Wide Open IV. 4000 / 4000 SIG BOLUS MARCIA Rx#:[id number] Vancomycin Inj 1,000 MG In NS 250 / 250 250 / 250 Inj 250 ML @ 200 mls/hr IV.SIG Q12H [facility]ARCIA Rx#:[id number] Output: Urine 300 / 300 Narrative: Physical Examination GENERAL: Patient is a well-nourished, well-developed female, awake and alert , looks uncomfortable due to the pains, restless SKIN: Warm and dry. No generalized rash. Some ecchymoses BLE from where she injected drus. Has some embolic lesions on her R hand. HEAD: Atraumatic. Normocephalic. No temporal wasting, or tenderness. EYES: [place] conjunctiva. No petechia or hemorrhage. Pupils equal, round and reactive to light. Extraocular movements full and intact. No scleral icterus. No injection or drainage. EARS, NOSE AND THROAT: Nose without bleeding or purulent nasal discharge. No sinus tenderness. Mucous membranes pink and moist. No oral lesions noted. No exudate. No oral thrush. NECK: Trachea midline. Supple and not tender, no meningeal signs CARDIOVASCULAR: Regular rate and rhythm.Tachycardic. No murmurs, rubs or gallops heard RESPIRATORY: Clear to auscultation. Breath sounds equal bilaterally. No rales , wheezing or rhonchi ABDOMEN: Soft, non-tender, nondistended. Bowel sounds present and normoactive. No guarding. No rebound. No organomegaly. EXTREMITIES: No clubbing, cyanosis. R foot, there is swelling redness on dorsum of her foot more laterally. Injection campa noted on her R foot and R leg. Good ROM at ankle R joint. L foot she has redness and swelling on lateral ankle and L foot. has good ROM at ankle joint. Has findings of needle campa on L foot and L leg. No calf tenderness. Well perfused and warm. NEUROLOGICAL: Awake and alert. Cranial nerves grossly intact. Motor grossly within normal limits. PSYCHIATRIC: Normal affect, calm and cooperative. LINE: No evidence of infection Results - Labs CBC & Chem 7: 01/03/18 16:30 01/03/18 19:39 Labs: Laboratory Results - last 24 hr 01/03/18 01/03/18 01/03/18 16:30 16:30 16:30 WBC 10.4 RBC 4.21 Hgb 11.5 L Hct 34.9 L MCV 83.0 MCH 27.3 MCHC 32.9 RDW 18.7 H Plt Count 162 MPV 7.7 Prelim Diff (Auto) Slide review pending Neut % (Auto) 83.9 H Lymph % (Auto) 8.1 L Camp % (Auto) 7.6 Eos % (Auto) 0.1 Baso % (Auto) 0.3 Neut # (Auto) 8.7 H Lymph # (Auto) 0.8 L [place] # (Auto) 0.8 Eos # (Auto) 0.0 Baso # (Auto) 0.0 WBC Differential Manual diff final Seg Neuts % (Manual) 56 Band Neuts % (Manual) 32 H Lymphocytes % (Manual) 5 L Monocytes % (Manual) 7 Abs Neuts (Manual) 9.2 H Differential Comment . Toxic Vacuolation Present H Platelet Estimate Normal Platelet Morphology Normal RBC Morphology Normal PT 10.5 INR 1.0 APTT 32.5 H Sodium 139 Potassium 5.3 H Chloride 110 H Carbon Dioxide 21.9 Anion Gap 7 BUN 17 Creatinine 0.97 Estimated GFR 64 L Random Glucose 133 H Lactic Acid Calcium 8.5 Magnesium 2.2 Total Bilirubin 1.3 H AST 73 H ALT 75 H Alkaline Phosphatase 267 H Total Protein 6.6 Albumin 2.1 L Procalcitonin Beta HCG, Qual Urine Color Urine Clarity Urine pH Ur Specific [place] Urine Protein Urine Glucose (UA) Urine Ketones Urine Occult Blood Urine Nitrate Urine Bilirubin Urine Urobilinogen Ur Leukocyte Esterase Urine RBC Urine WBC Ur Renal Epithelial Cell Micro UA Comment Ur Microscopic Review Urine Culture Comments Urine Opiates Screen Ur Barbiturates Screen Ur Amphetamines Screen U Benzodiazepines Scrn Urine Cocaine Screen U Cannabinoids Screen 01/03/18 01/03/18 01/03/18 16:30 16:46 19:39 WBC RBC Hgb Hct MCV MCH MCHC RDW Plt Count MPV Prelim Diff (Auto) Neut % (Auto) Lymph % (Auto) Camp % (Auto) Eos % (Auto) Baso % (Auto) Neut # (Auto) Lymph # (Auto) Camp # (Auto) Eos # (Auto) Baso # (Auto) WBC Differential Seg Neuts % (Manual) Band Neuts % (Manual) Lymphocytes % (Manual) Monocytes % (Manual) Abs Neuts (Manual) Differential Comment Toxic Vacuolation Platelet Estimate Platelet Morphology RBC Morphology PT INR APTT Sodium Potassium 4.0 D Chloride Carbon Dioxide Anion Gap BUN Creatinine Estimated GFR Random Glucose Lactic Acid 2.1 H Calcium Magnesium Total Bilirubin AST ALT Alkaline Phosphatase Total Protein Albumin Procalcitonin Beta HCG, Qual Less than 1.0 Urine Color Urine Clarity Urine pH Ur Specific [place] Urine Protein Urine Glucose (UA) Urine Ketones Urine Occult Blood Urine Nitrate Urine Bilirubin Urine Urobilinogen Ur Leukocyte Esterase Urine RBC Urine WBC Ur Renal Epithelial Cell Micro UA Comment Ur Microscopic Review Urine Culture Comments Urine Opiates Screen Ur Barbiturates Screen Ur Amphetamines Screen U Benzodiazepines Scrn Urine Cocaine Screen U Cannabinoids Screen 01/03/18 01/03/18 01/03/18 19:39 19:39 20:00 WBC RBC Hgb Hct MCV MCH MCHC RDW Plt Count MPV Prelim Diff (Auto) Neut % (Auto) Lymph % (Auto) Camp % (Auto) Eos % (Auto) Baso % (Auto) Neut # (Auto) Lymph # (Auto) Camp # (Auto) Eos # (Auto) Baso # (Auto) WBC Differential Seg Neuts % (Manual) Band Neuts % (Manual) Lymphocytes % (Manual) Monocytes % (Manual) Abs Neuts (Manual) Differential Comment Toxic Vacuolation Platelet Estimate Platelet Morphology RBC Morphology PT INR APTT Sodium Potassium Chloride Carbon Dioxide Anion Gap BUN Creatinine Estimated GFR Random Glucose Lactic Acid 2.0 Calcium Magnesium Total Bilirubin AST ALT Alkaline Phosphatase Total Protein Albumin Procalcitonin 15.27 H Beta HCG, Qual Urine Color Yellow Urine Clarity Clear Urine pH 6.0 Ur Specific [place] 1.014 Urine Protein Negative Urine Glucose (UA) Negative Urine Ketones Negative Urine Occult Blood Small H Urine Nitrate Negative Urine Bilirubin Negative Urine Urobilinogen Less than 2 Ur Leukocyte Esterase Negative Urine RBC Less than 1 Urine WBC 2 Ur Renal Epithelial Cell <1 Micro UA Comment Culture not ind Ur Microscopic Review Not Reportable Urine Culture Comments Culture not ind Urine Opiates Screen Ur Barbiturates Screen Ur Amphetamines Screen U Benzodiazepines Scrn Urine Cocaine Screen U Cannabinoids Screen 01/03/18 20:00 WBC RBC Hgb Hct MCV MCH MCHC RDW Plt Count MPV Prelim Diff (Auto) Neut % (Auto) Lymph % (Auto) Camp % (Auto) Eos % (Auto) Baso % (Auto) Neut # (Auto) Lymph # (Auto) Camp # (Auto) Eos # (Auto) Baso # (Auto) WBC Differential Seg Neuts % (Manual) Band Neuts % (Manual) Lymphocytes % (Manual) Monocytes % (Manual) Abs Neuts (Manual) Differential Comment Toxic Vacuolation Platelet Estimate Platelet Morphology RBC Morphology PT INR APTT Sodium Potassium Chloride Carbon Dioxide Anion Gap BUN Creatinine Estimated GFR Random Glucose Lactic Acid Calcium Magnesium Total Bilirubin AST ALT Alkaline Phosphatase Total Protein Albumin Procalcitonin Beta HCG, Qual Urine Color Urine Clarity Urine pH Ur Specific [place] Urine Protein Urine Glucose (UA) Urine Ketones Urine Occult Blood Urine Nitrate Urine Bilirubin Urine Urobilinogen Ur Leukocyte Esterase Urine RBC Urine WBC Ur Renal Epithelial Cell Micro UA Comment Ur Microscopic Review Urine Culture Comments Urine Opiates Screen Neg Ur Barbiturates Screen Neg Ur Amphetamines Screen Neg U Benzodiazepines Scrn Neg Urine Cocaine Screen Neg U Cannabinoids Screen Neg - Imaging Impressions Chest CT 01/03/18 00:00 CONCLUSION: 1. Bilateral subsegmental pulmonary infiltrates and rounded areas of consolidation in both lower lobes one of which is demonstrating cavitation in the left lower lobe. Findings are most characteristic of infectious/ inflammatory process and septic emboli. 2. Wedge-shaped defect in the spleen which may also represent vascular occlusive disease from embolism. 3. Developing pleural thickening along the posterolateral margin of the left lower lobe. Ankle X-Ray 01/03/18 16:29 CONCLUSION: No acute left ankle abnormality is identified. Chest X-Ray 01/03/18 16:29 CONCLUSION: Patchy and somewhat nodular areas of airspace consolidation within the left upper lobe. Although nonspecific, this could represent an infectious process in the appropriate clinical setting. Suggest follow-up imaging to confirm resolution of this finding. If there are no clinical findings to suggest infection, chest CT may offer additional characterization. Foot X-Ray 01/03/18 16:29 CONCLUSION: No evidence of recent bony injury. Mild soft tissue swelling along the dorsum of the midfoot. Assessment and Plan - Plan Impression Sepsis on admission, suspicious for endocarditis, has active IVDU Cellulitis both feet due to injections Septic emboli Possible splenic infarct Recommendation Repeat BC to document clearing Continue Vanco Also on Zosyn, if no GNR, will D/C Echo Follow C/S and adjust Abx Monitor progress Will make further recommendations once work-up is completed I will follow along with you Thank you for this consultation
[2018-01-04 20:20] LABS: Hepatitis A IgM Antibody Nonreactive (Nonreactive); Hepatitits B Surface Antigen Nonreactive (Nonreactive)
[2018-01-04] MEDS: Enoxaparin Inj 40 MG/0.4 ML Syringe SQ SCH (21:13)
[2018-01-04] MEDS: Vancomycin Inj 1,250 MG in Sodium Chlor 0.9% Inj 250 ML IV.SIG SCH (22:04)
[2018-01-05] MEDS: Piperacil/Tazo 4.5 GM Premix 4.5 GM/100 ML BAG IV.SIG SCH ×4 (02:13→20:30)
[2018-01-05] MEDS: Ketorolac Inj 30 MG/ML (IVP) Vial IV.PUSH SCH ×4 (02:14→20:28)
[2018-01-05] MEDS: Senna/Docusate Sodium 8.6/50 MG Tablet PO SCH ×2 (08:49→20:29)
[2018-01-05] MEDS: Vancomycin Inj 1,250 MG in Sodium Chlor 0.9% Inj 250 ML IV.SIG SCH ×2 (10:24→22:15)
--- NOTE | 2018-01-05 11:03 | P.PNID ---
Subjective Remarks: Patient is a 42-year-old female presented to the hospital complaining of significant chest pain, worse on the left than on the right. She is also complaining of pain in both lower extremity. Patient has known IV drug use and has been using both lower extremity tissue drugs. Her pain started about 4 days prior to admission at that time she had injected drugs. She has had some subjective fever and chills. She denies any cough, or congestion. She has not had any hemoptysis. She is having some shortness of breath due to the significant chest pain. Patient checked again in [facility], and she was having a lot of different complaints so patient was brought into the hospital and has been admitted. Since admission she has not had any fever. She has had multiple imaging studies. CT of the chest is showing multiple infiltrates some with cavitation suggestive of septic emboli. There is also an imaging study which showed a wedge-shaped area on the spleen, possibly an infarct. X-ray of the lower extremity did not show any abnormality of his fracture. Chest x-ray showing some mild pulmonary infiltrates. She had 2 blood cultures done and they are now reported as growing gram-positive cocci in pairs and clusters. Her urinalysis is unremarkable. Infectious disease consultation has been requested to assist with evaluation and treatment. Notes reviewed [place] Feels better BC on admission with [facility]PC Repeat BC pending Antibiotics: Vancomycin Zosyn Lines: PIV Past Medical History: Anxiety Depression IV drug abuse Mastitis H/O knee surgery Hx of breast biopsy Allergies/Adverse Reactions: Allergies No Known Allergies Allergy (Unverified 01/03/18 16:03) Objective Vital Signs 01/04/18 12:00 01/04/18 15:08 01/04/18 15:37 Temperature 97.5 F L 98.0 F 98.0 F Pulse Rate 104 H 106 H 106 H Respiratory Rate 20 20 20 Blood Pressure 116/63 119/70 119/70 Pulse Oximetry 97 100 100 01/04/18 20:00 01/05/18 00:00 01/05/18 04:00 Temperature 98.3 F 98 F 97.3 F L Pulse Rate 103 H 94 H 97 H Respiratory Rate 20 20 18 Blood Pressure 115/70 118/71 117/73 Pulse Oximetry 100 99 99 01/05/18 09:52 Temperature Pulse Rate Respiratory Rate Blood Pressure Pulse Oximetry 96 Intake & Output 01/04/18 01/05/18 01/05/18 18:59 06:59 18:59 Intake Total 3050 / 3050 462.5 / 462.5 Balance 3050 / 3050 462.5 / 462.5 Intake: IV 1550 / 1550 462.5 / 462.5 1/2 Normal Saline Inj 1,000 ML 1000 / 1000 @ 75 mls/hr IV.CONT .[id number] MARCIA Rx#:[id number] Zosyn 4.5 GM Premix 4.5 gm In 200 / 200 200 / 200 100 ml @ 200 mls/hr IV.SIG Q6H [facility]ARCIA Rx#:[id number] Vancomycin Inj 1,000 MG In NS 250 / 250 Inj 250 ML @ 200 mls/hr IV.SIG Q12H [facility]ARCIA Rx#:[id number] Vancomycin Inj 1,250 MG In NS 262.5 / 262.5 Inj 250 ML @ 250 mls/hr IV.SIG Q12H [facility]ARCIA Rx#:[id number] Oral 1500 / 1500 Other: # Voids 5 # Bowel Movements 1 01/03/18 16:45 Blood - Peripheral Aerobic Blood Culture - Preliminary gram positive cocci 01/03/18 16:45 Blood - Peripheral Anaerobic Blood Culture - Final Staphylococcus aureus 01/03/18 16:35 Blood - Peripheral Aerobic Blood Culture - Preliminary gram positive cocci 01/03/18 16:35 Blood - Peripheral Anaerobic Blood Culture - Preliminary Staphylococcus aureus 01/04/18 18:20 Blood - Peripheral Aerobic Blood Culture - Pending 01/04/18 18:20 Blood - Peripheral Anaerobic Blood Culture - Pending 01/04/18 18:25 Blood - Peripheral Aerobic Blood Culture - Pending 01/04/18 18:25 Blood - Peripheral Anaerobic Blood Culture - Pending 01/03/18 20:00 Urine - Clean Catch Urine Streptococcus pneumoniae Antigen ( M - Final Presumptive negative for streptococcus pneumoniae antigen, suggesting no current or recent infection. Infection due to Streptococcus pneumoniae cannot be ruled out since the antigen present in the sample may be below the detection limit of the test. 01/03/18 20:00 Urine - Clean Catch Urine Legionella Antigen - Final Presumptive negative for Legionella pneumophila serogroup 1 antigen in urine, suggesting no recent or recurrent infection. Infection due to Legionella cannot be ruled out since other serogroups and species may cause disease, antigen may not be present in urine in early infection, and the level of antigen present in the urine may be below the detection limit of the test. Lab - Hematology Results 01/03/18 16:30 WBC 10.4 RBC 4.21 Hgb 11.5 L Hct 34.9 L MCV 83.0 MCH 27.3 MCHC 32.9 RDW 18.7 H Plt Count 162 MPV 7.7 Prelim Diff (Auto) Slide review pending Neut % (Auto) 83.9 H Lymph % (Auto) 8.1 L [place] % (Auto) 7.6 Eos % (Auto) 0.1 Baso % (Auto) 0.3 Neut # (Auto) 8.7 H Lymph # (Auto) 0.8 L [place] # (Auto) 0.8 Eos # (Auto) 0.0 Baso # (Auto) 0.0 WBC Differential Manual diff final Seg Neuts % (Manual) 56 Band Neuts % (Manual) 32 H Lymphocytes % (Manual) 5 L Monocytes % (Manual) 7 Abs Neuts (Manual) 9.2 H Differential Comment . Toxic Vacuolation Present H Platelet Estimate Normal Platelet Morphology Normal RBC Morphology Normal Lab - Chemistry Results 01/03/18 01/03/18 01/03/18 16:30 16:30 16:46 Sodium 139 Potassium 5.3 H Chloride 110 H Carbon Dioxide 21.9 Anion Gap 7 BUN 17 Creatinine 0.97 Estimated GFR 64 L Random Glucose 133 H Lactic Acid 2.1 H Calcium 8.5 Magnesium 2.2 Total Bilirubin 1.3 H AST 73 H ALT 75 H Alkaline Phosphatase 267 H B-Natriuretic Peptide Total Protein 6.6 Albumin 2.1 L Procalcitonin Beta HCG, Qual Less than 1.0 01/03/18 01/03/18 01/03/18 19:39 19:39 19:39 Sodium Potassium 4.0 D Chloride Carbon Dioxide Anion Gap BUN Creatinine Estimated GFR Random Glucose Lactic Acid 2.0 Calcium Magnesium Total Bilirubin AST ALT Alkaline Phosphatase B-Natriuretic Peptide Total Protein Albumin Procalcitonin 15.27 H Beta HCG, Qual 01/04/18 18:20 Sodium Potassium Chloride Carbon Dioxide Anion Gap BUN Creatinine Estimated GFR Random Glucose Lactic Acid Calcium Magnesium Total Bilirubin AST ALT Alkaline Phosphatase B-Natriuretic Peptide 304 H Total Protein Albumin Procalcitonin Beta HCG, Qual Imaging: ITS Impressions Chest CT 01/03/18 00:00 CONCLUSION: 1. Bilateral subsegmental pulmonary infiltrates and rounded areas of consolidation in both lower lobes one of which is demonstrating cavitation in the left lower lobe. Findings are most characteristic of infectious/ inflammatory process and septic emboli. 2. Wedge-shaped defect in the spleen which may also represent vascular occlusive disease from embolism. 3. Developing pleural thickening along the posterolateral margin of the left lower lobe. Ankle X-Ray 01/03/18 16:29 CONCLUSION: No acute left ankle abnormality is identified. Chest X-Ray 01/03/18 16:29 CONCLUSION: Patchy and somewhat nodular areas of airspace consolidation within the left upper lobe. Although nonspecific, this could represent an infectious process in the appropriate clinical setting. Suggest follow-up imaging to confirm resolution of this finding. If there are no clinical findings to suggest infection, chest CT may offer additional characterization. Foot X-Ray 01/03/18 16:29 CONCLUSION: No evidence of recent bony injury. Mild soft tissue swelling along the dorsum of the midfoot. Physical Exam: GENERAL: awake and alert, NAD SKIN: Warm and dry. No generalized rash. Some ecchymoses BLE from where she injected drugs. Has some embolic lesions on her R hand. HEAD: Atraumatic. Normocephalic. No temporal wasting, or tenderness. EYES: [place] conjunctiva. No petechia or hemorrhage. No scleral icterus. No injection or drainage. EARS, NOSE AND THROAT: Nose without bleeding or purulent nasal discharge. No sinus tenderness. Mucous membranes pink and moist. No oral lesions noted. NECK: Trachea midline. Supple and not tender, no meningeal signs CARDIOVASCULAR: Regular rate and rhythm.Tachycardic. No murmurs, rubs or gallops heard RESPIRATORY: Clear to auscultation. Breath sounds equal bilaterally. No rales , wheezing or rhonchi ABDOMEN: Soft, non-tender, nondistended. Bowel sounds present and normoactive. No guarding. No rebound. No organomegaly. EXTREMITIES: No clubbing, cyanosis. R foot, there is swelling redness on dorsum of her foot more laterally better. Injection campa noted on her R foot and R leg. Good ROM at ankle R joint. L foot she has improving swelling on lateral ankle and L foot and redness almost gone. Has good ROM at L ankle joint. Has findings of needle campa on L foot and L leg. No calf tenderness. NEUROLOGICAL: Grossly non-focal PSYCHIATRIC: Normal affect, calm and cooperative. LINE: No evidence of infection Assessment and Plan - Plan Impression Sepsis on admission, suspicious for endocarditis, has active IVDU Cellulitis both feet due to injections, better Septic emboli Possible splenic infarct Recommendation Repeat BC to document clearing Continue Vanco Stop Zosyn Echo Follow C/S and adjust Abx Monitor progress D/W RN Explained plan to the patient Patient seems to have very poor understanding of her medical problems
[2018-01-05] MEDS: Sodium Chloride 0.45 % Inj 1,000 ML IV.CONT SCH (11:40)
--- NOTE | 2018-01-05 12:02 | P.PN ---
Subjective Interval history: Follow up gram positive bacteremia patient c/o pain all over asking for IV Dilaudid reports breathing is better than yesterday offers no other complaints at this time Physical Exam Vital signs: Vital Signs 01/04/18 12:00 01/04/18 15:08 01/04/18 15:37 Temperature 97.5 F L 98.0 F 98.0 F Pulse Rate 104 H 106 H 106 H Respiratory Rate 20 20 20 Blood Pressure 116/63 119/70 119/70 Pulse Oximetry 97 100 100 01/04/18 20:00 01/05/18 00:00 01/05/18 04:00 Temperature 98.3 F 98 F 97.3 F L Pulse Rate 103 H 94 H 97 H Respiratory Rate 20 20 18 Blood Pressure 115/70 118/71 117/73 Pulse Oximetry 100 99 99 01/05/18 09:52 Temperature Pulse Rate Respiratory Rate Blood Pressure Pulse Oximetry 96 Intake & Output 01/04/18 01/05/18 01/05/18 18:59 06:59 18:59 Intake Total 3050 / 3050 462.5 / 462.5 562.5 / 562.5 Balance 3050 / 3050 462.5 / 462.5 562.5 / 562.5 Intake: IV 1550 / 1550 462.5 / 462.5 562.5 / 562.5 1/2 Normal Saline Inj 1,000 ML 1000 / 1000 200 / 200 @ 75 mls/hr IV.CONT .[id number] MARCIA Rx#:[id number] Zosyn 4.5 GM Premix 4.5 gm In 200 / 200 200 / 200 100 / 100 100 ml @ 200 mls/hr IV.SIG Q6H MARCIA Rx#:[id number] Vancomycin Inj 1,000 MG In NS 250 / 250 Inj 250 ML @ 200 mls/hr IV.SIG Q12H MARCIA Rx#:[id number] Vancomycin Inj 1,250 MG In NS 262.5 / 262.5 262.5 / 262.5 Inj 250 ML @ 250 mls/hr IV.SIG Q12H MARCIA Rx#:[id number] Oral 1500 / 1500 Other: # Voids 5 # Bowel Movements 1 Narrative: GENERAL: Patient lying in bed. Appears uncomfortable. SKIN: Warm and dry. HEAD: Normocephalic. EYES: No scleral icterus. No injection or drainage. NECK: Supple, trachea midline. No JVD. CARDIOVASCULAR: Regular rate and rhythm RESPIRATORY: Breath sounds equal bilaterally. No accessory muscle use. GASTROINTESTINAL: Abdomen soft, non-tender, nondistended. MUSCULOSKELETAL: No cyanosis. Trace bilateral lower extremity edema with mild erythema. Dorsum of right foot with mild erythema. BACK: Nontender without obvious deformity. No CVA tenderness. Results - Labs CBC & Chem 7: 01/03/18 16:30 01/03/18 19:39 Laboratory Results - last 24 hr 01/04/18 01/04/18 18:20 18:20 B-Natriuretic Peptide 304 H Hepatitis A IgM Ab Nonreactive Hep Bs Antigen Nonreactive Hep B Core IgM Ab Nonreactive Hep C IgG Ab Reactive H Microbiology 01/04/18 18:20 Blood - Peripheral Aerobic Blood Culture - Preliminary No growth in 1 day 01/04/18 18:20 Blood - Peripheral Anaerobic Blood Culture - Preliminary No growth in 1 day 01/04/18 18:25 Blood - Peripheral Aerobic Blood Culture - Preliminary No growth in 1 day 01/04/18 18:25 Blood - Peripheral Anaerobic Blood Culture - Preliminary No growth in 1 day 01/03/18 16:45 Blood - Peripheral Aerobic Blood Culture - Preliminary gram positive cocci 01/03/18 16:45 Blood - Peripheral Anaerobic Blood Culture - Final Staphylococcus aureus 01/03/18 16:35 Blood - Peripheral Aerobic Blood Culture - Preliminary gram positive cocci 01/03/18 16:35 Blood - Peripheral Anaerobic Blood Culture - Preliminary Staphylococcus aureus 01/03/18 20:00 Urine - Clean Catch Urine Streptococcus pneumoniae Antigen ( M - Final Presumptive negative for streptococcus pneumoniae antigen, suggesting no current or recent infection. Infection due to Streptococcus pneumoniae cannot be ruled out since the antigen present in the sample may be below the detection limit of the test. 01/03/18 20:00 Urine - Clean Catch Urine Legionella Antigen - Final Presumptive negative for Legionella pneumophila serogroup 1 antigen in urine, suggesting no recent or recurrent infection. Infection due to Legionella cannot be ruled out since other serogroups and species may cause disease, antigen may not be present in urine in early infection, and the level of antigen present in the urine may be below the detection limit of the test. Assessment and Plan - Plan 42 year old female with history of IVDU presenting with diffuse chest pain and pain over her lower extremities and top of her right foot. CXR notable for patchy areas of consolidation and she also has a right foot cellulitis. // Sepsis //Gram-positive bacteremia. Suspected endocarditis. - Pt tachycardic with elevated bands on CBC and source of infection (PNA and R foot cellulitis) - Lactic acid elevated at 2.1 - NS 1L bolus x 2 in the ED - Given chest pain, patchy, nodular consolidations on CXR, and active IVDU, will obtain 2D echo to assess for endocarditis though I did not appreciate any murmurs on exam - Blood cultures drawn - U/A and culture ordered - See further treatment for PNA below = 01/04. Blood cultures 2 bottles positive for gram cocci. Repeat blood cultures, check echocardiogram, consult infectious disease. Continue broad- spectrum antibiotics. - 01/05. Repeat BC from 01.04 no growth x 1 day. Echocardiogram ordered and pending. appreciated ID assistance stopped Zosyn continued Vanco. //Pneumonia - CXR demonstrates areas with patchy areas of consolidation in left upper lobe, images personally reviewed by me - ?septic embolis - CT chest 1. Bilateral subsegmental pulmonary infiltrates and rounded areas of consolidation in both lower lobes one of which is demonstrating cavitation in the left lower lobe. Findings are most characteristic of infectious/ inflammatory process and septic emboli. 2. Wedge-shaped defect in the spleen which may also represent vascular occlusive disease from embolism. 3. Developing pleural thickening along the posterolateral margin of the left lower lobe. - Supplemental O2 - Abx per ID - sputum cultures ordered but not yet obtained - Urine legionella and pneumococcal negative. Likely secondary to septic emboli from endocarditis. Continue antibiotics per ID //R foot cellulitis - Likely secondary to injection into her foot - Vanco and Zosyn initially Zosyn DC'd per ID - R foot XR with no fractures or signs of osteo. There is some soft tissue swelling = Likely secondary to IV drug use, endocarditis. //IVDU - Counseled on cessation - Check UDS //Transaminitis - Likely combination of infection, IVDU, EtOH use -01/04. Ordered hepatitis profile. // Hyperkalemia - Potassium 5.3, likely secondary to hemolysis - Recheck 4.0 DVT prophylaxis: Lovenox Discussed case with supervising physician Dr. Londono recommends continuing current plan and no increase in pain medication due to patient's IVDU CBC and CMP in AM Discharge Planning: Continues septic with gram-positive bacteremia.
--- NOTE | 2018-01-05 17:24 | ECHRPT ---
Indication: POSS SEPSIS, ENDOCARDITIS CONCLUSIONS Normal left ventricular size. Wall thickness is normal. The left ventricular systolic function is normal with an estimated ejection fraction in the range of 55-60%. The right atrial size is mildly dilated. Mobile echodensity is noted on the mitral valve consistent with vegetation (2 cm x 1 cm). [id number] mitral valve regurgitation. There is mild tricuspid valve regurgitation. The estimated pulmonary arterial pressure is 35 mmHg. Findings also suggestive of a small vegetation on the tricuspid valve. BP: / HR: Rhythm: Sinus MEASUREMENTS (Male / Female) Normal Values Technical Quality:Fair 2D ECHO LV Diastolic Diameter PLAX 4.5 cm 4.2 - 5.9 / 3.9 - 5.3 cm LV Systolic Diameter PLAX 3.1 cm IVS Diastolic Thickness 1.0 cm 0.6 - 1.0 / 0.6 - 0.9 cm LVPW Diastolic Thickness 0.9 cm 0.6 - 1.0 / 0.6 - 0.9 cm LV Relative Wall Thickness 0.4 RV Internal Dim ED PLAX 3.0 cm LVOT Diameter 1.9 cm LA Systolic Diameter LX 3.9 cm 3.0 - 4.0 / 2.7 - 3.8 cm M-MODE AV Cusp Separation MM 2.2 cm DOPPLER AV Peak Velocity 202.0 cm/s AV Peak Gradient 16.3 mmHg LVOT Peak Velocity 155.0 cm/s LVOT Peak Gradient 9.6 mmHg AV Area Cont Eq pk 2.2 cm Mitral E Point Velocity 133.0 cm/s Mitral A Point Velocity 103.0 cm/s Mitral E to A Ratio 1.3 TV Peak Velocity 266.0 cm/s TR Peak Velocity 251.0 cm/s TR Peak Gradient 25.2 mmHg Right Atrial Pressure 10.0 mmHg Pulmonary Artery Systolic Pressu 35.2 mmHg Right Ventricular Systolic Press 35.2 mmHg PV Peak Velocity 134.0 cm/s PV Peak Gradient 7.2 mmHg FINDINGS LEFT VENTRICLE Normal left ventricular size. Wall thickness is normal. The left ventricular systolic function is normal with an estimated ejection fraction in the range of 55-60%. RIGHT VENTRICLE Normal right ventricular size and systolic function. LEFT ATRIUM The left atrial size is normal. RIGHT ATRIUM The right atrial size is mildly dilated. ATRIAL SEPTUM No atrial level shunt is demonstrated by color flow Doppler interrogation. AORTA The aortic root and proximal ascending aorta are normal in size on limited imaging. MITRAL VALVE Mobile echodensity is noted on the mitral valve consistent with vegetation (2 cm x 1 cm). The mobile echodensity is located on the posterior mitral valve leaflet. [id number] mitral valve regurgitation. AORTIC VALVE Trileaflet aortic valve. No aortic valve stenosis or regurgitation. TRICUSPID VALVE There is mild tricuspid valve regurgitation. The estimated pulmonary arterial pressure is 35.2 mmHg. Findings consistent with a small vegetation on the tricuspid valve. PULMONARY VALVE No pulmonary valve regurgitation or stenosis. VESSELS The inferior vena cava is normal in size. PERICARDIUM No pericardial effusion. Sean French MD, FACC (Electronically Signed) Final Date:05 January 2018 17:22
[2018-01-05] MEDS: Enoxaparin Inj 40 MG/0.4 ML Syringe SQ SCH (20:29)
[2018-01-06] MEDS: Piperacil/Tazo 4.5 GM Premix 4.5 GM/100 ML BAG IV.SIG SCH (02:25)
[2018-01-06] MEDS: Ketorolac Inj 30 MG/ML (IVP) Vial IV.PUSH SCH (02:26)
[2018-01-06] MEDS: Sodium Chloride 0.45 % Inj 1,000 ML IV.CONT SCH (04:23)
[2018-01-06 05:52] LABS: Baso % (Auto) 0.5 % (0.0-2.0); Eos # (Auto) 0.1 th/mm3 (0.0-0.4); Eos % (Auto) 1.5 % (0.0-4.0); Hematocrit 26.3 % (35.0-46.0); Hemoglobin 8.8 gm/dL (11.6-15.3); Lymph # (Auto) 1.1 th/mm3 (1.0-4.8); Lymph % (Auto) 15.4 % (9.0-44.0); Mean Corpuscular HGB Conc 33.3 % (32.0-36.0); Mean Corpuscular Hemoglobin 27.1 pg (27.0-34.0); Mean Corpuscular Volume 81.5 fL (80.0-100.0); Mean Platelet Volume 7.6 fL (7.0-11.0); Mono # (Auto) 0.7 th/mm3 (0.0-0.9); Mono % (Auto) 9.6 % (0.0-8.0); Neut # (Auto) 5.4 th/mm3 (1.8-7.7); Platelet Count 174 th/mm3 (150-450); Red Blood Count 3.23 mil/mm3 (4.00-5.30); Red Cell Distribution Width 18.7 % (11.6-17.2); White Blood Count 7.4 th/mm3 (4.0-11.0)
[2018-01-06 06:11] LABS: Albumin 1.4 g/dL (3.4-5.0); Calcium 7.5 mg/dL (8.5-10.1); Magnesium 1.7 mg/dL (1.5-2.5); Potassium 3.6 meq/L (3.5-5.1); Total Protein 5.7 g/dL (6.4-8.2)
--- NOTE | 2018-01-06 06:35 | P.AMA ---
AMA Note - AMA Note AMA Statement: Patient Lesa Bazzi has decided to leave the hospital against medical advice. This patient has the capacity to refuse care and understands the risks of leaving, including permanent disability and/or , and has had an opportunity to ask questions about his/her condition. The patient has been informed that he/she may return for care at any time, and follow up has been arranged/advised. - AMA Note Discharge Disposition: Left Against Medical Advice Patient Condition on Discharge: Stable
[2018-01-06] MEDS ORDERED: Pharmacy Ordered Lab Info OTHER ONE (09:45)
[2018-01-06 17:29] LABS: TB1 Ag minus Nil Result 0.01 IU/mL
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
== END 2018-01-06 05:57 | disposition left against medical advice (07) ==
LOC: NEPC 15:58 → NEDA 17:57 → N07 20:35
PROVIDERS: ADMIT Internal Medicine; ATTEND Internal Medicine

== ENCOUNTER 2018-01-10 06:20 | Inpatient (IN) ==
[2018-01-10] MEDS ORDERED: Piperacil/Tazo 4.5 GM Premix 4.5 GM/100 ML BAG IV.SIG ONE (07:16)
[2018-01-10] MEDS ORDERED: oxyCODONE/Acetaminophen 10/325 Tablet PO ONE (07:20)
--- NOTE | 2018-01-10 07:20 | ED ---
HPI General Chief complaint: Skin/Abscess/Foreign Body Stated complaint: Medical/Evac Time Seen by Provider: 01/10/18 07:02 History of Present Illness HPI narrative: Patient is a 42-year-old female IV drug abuser states he last used drugs 2 weeks ago presents the emergency department for evaluation of cough congestion leg swelling and generalized body aches. Patient has been seen here on the this month signed out AGAINST MEDICAL ADVICE because she was not receiving the pain management she expected, she also states that a nurse would not hand her her drink and told her she had to get out of bed and get herself. Patient went to [facility] thinking she would get better care when she was told she needed a rectal exam she signed out AGAINST MEDICAL ADVICE there as well. Review of her records show that she had a CT scan on the of this month showing what appears to be septic pulmonary emboli. The patient also had 4 blood cultures 8 blood cultures throughout her stay in the emergency hospital earlier last week 6 of which grew out staph aureus. She states that she is not getting any better, she was prescribed antibiotics at [facility] did not get them filled. Denies any fevers nausea vomiting diarrhea. symptoms moderate, associated signs symptoms in context as above, duration unknown. Related Data Home Medications Medication Instructions Recorded Confirmed clonazepam [Klonopin] 1 mg PO TID 01/03/18 01/10/18 dextroamphetamine-amphetamine 30 mg PO BID 01/03/18 01/10/18 [Adderall] trazodone 300 mg PO DAILY PRN 01/03/18 01/10/18 Allergies Allergy/AdvReac Type Severity Reaction Status Date / Time No Known Allergies Allergy Verified 01/10/18 06:30 Review of Systems ROS: all other systems reviewed are negative [facility] Medical History Medical History (Acute) Anxiety (Acute) Depression (Acute) IV drug abuse (Acute) Mastitis (Acute) Surgical History Surgical History H/O knee surgery (Acute) Hx of breast biopsy (Acute) Family History Family History Mother Cancer Heart disease Father Cancer Heart disease Social History Social History Substance History: Active Abuse Second Hand Smoke Exposure: Yes Smoking Status: Current every day smoker Tobacco Type: Cigarettes Packs Per Day: 1 Cigarettes Per Day: 20.0 Years Smoked: 20 Pack-Years: 20.00 How Often Do You Have a Drink Containing Alcohol: 4 or more times a week Recent Travel in [facility] within the Last 8 Weeks: No Recent Out of Country Travel within the Last 8 Weeks: No Substance Abuse Detail Heroin: Route Used Substance Abuse: Intravenously Immunization History Tetanus Immunization: <5 Years Exam Narrative Exam Narrative: GENERAL: Well-developed well-nourished appears older than stated age. No obvious distress. SKIN: Focused skin assessment warm/dry. There are some nodules on the long and ring finger on the right hand, these are probably consistent with Osler's nodes. There is no generalized rash. Scattered scabbed lesions on her lower extremities, bruising on her left upper extremity, the latter is probably consistent with prior IV drug sites. No skin abscess is seen. HEAD: Atraumatic. Normocephalic. EYES: Pupils equal and round. No scleral icterus. No injection or drainage. ENT: No nasal bleeding or discharge. Mucous membranes pink and moist. NECK: Trachea midline. No JVD. CARDIOVASCULAR: Regular rate and rhythm. No murmur appreciated. I do not appreciate any murmur gallop or rub. RESPIRATORY: No accessory muscle use. Clear to auscultation. Breath sounds equal bilaterally. GASTROINTESTINAL: Abdomen soft, non-tender, nondistended. Hepatic and splenic margins not palpable. MUSCULOSKELETAL: No obvious deformities. No clubbing. No cyanosis. There is 2 + pitting edema bilateral lower extremities, is also some edema of her bilateral upper extremities at the hands. NEUROLOGICAL: Awake and alert. No obvious cranial nerve deficits. Motor grossly within normal limits. Normal speech. PSYCHIATRIC: Appropriate mood and affect; insight and judgment normal. Course Initial Documented Vital Signs Temperature 99.2 F 01/10/18 06:30 Pulse Rate 85 01/10/18 06:30 Respiratory Rate 16 01/10/18 06:30 Blood Pressure 131/78 01/10/18 06:30 Pulse Oximetry 98 01/10/18 06:30 Last Documented Vital Signs Temperature 98.7 F 01/10/18 06:35 Pulse Rate 90 01/10/18 08:12 Respiratory Rate 16 01/10/18 06:35 Blood Pressure 120/70 01/10/18 06:35 Pulse Oximetry 100 01/10/18 08:11 Critical Care Time Critical Care Time: Yes Total Critical Care Time: 35 Attestation: Aggregate critical care time was 35 minutes. Time to perform other separately billable procedures was not included in the critical care time. My time did not include minutes spent treating any other patients simultaneously or on activities that did not directly contribute to the patient's treatment. The services I provided to this patient were to treat and/or prevent clinically significant deterioration that could result in: , disability, heart failure, endorgan failure, permanent severe disability, stroke I provided critical care services requiring my management, as noted below: Chart data review, documentation time, medication orders and management, vital sign assessments/reviewing monitor data, ordering and reviewing lab tests, ordering and interpreting/reviewing x-rays and diagnostic studies, care of the patient and discussion of the patient with the admitting physicians. Medical Decision Making MDM Narrative Medical decision making narrative: Patient room to the emergency department, she appears older than stated age but certainly nontoxic. Review of her records shows that 6 out of 8 culture bottles did grow staph recently. CT scan showing what appears to be septic pulmonary emboli, with her history of IV drug abuse high clinical concern for endocarditis and the patient will obligate need for admission. Basic labs drawn, she was given vancomycin and Zosyn. Patient left AGAINST MEDICAL ADVICE for inadequate pain control on her last admission, I explained to her that given her IV drug abuse is going to be very hard to control any of her chronic pains. She appears quite comfortable currently complains of pain in her lower legs from the swelling. Percocet was given here, I instructed her that it will be at the discretion of the admitting physician any additional pain management that she receives here. But I explained to her that she should expect 6-8 weeks of hospitalization for her endocarditis and that without hospitalization for this. She is at risk of congestive heart failure sudden cardiac and/or permanent disability. She verbalized understanding and is agreeable to stay at this time. Patient does appear quite well, hemodynamically she is stable, mild anemia. Electrolytes within normal limits. Her lactic acid is negative as well. Patient discussed with Dr. Flores who will admit the patient. After admission and had further review of her records did show that she had an echocardiogram and a 27 which did show mobile vegetation mitral valve, there was also what appeared to be a small vegetation on the tricuspid valve indicating two valve endocarditis. Medical Screen Exam Complete: Yes Emergency Medical Condition: Yes Differential Diagnosis Differential Diagnosis: Septic pulmonary emboli, bacteremia, sepsis, endocarditis. Medical Records Medical records reviewed: Yes I reviewed the patient's medical records. Lab Data Result diagrams: 01/10/18 07:35 01/10/18 07:35 POC Results POC Urine Results Negative Lab Results 01/10/18 01/10/18 01/10/18 Range/Units 07:30 07:30 07:35 WBC 7.7 (4.0-11.0) th/mm3 RBC 2.88 L (4.00-5.30) mil/mm3 Hgb 7.8 L (11.6-15.3) gm/dL Hct 23.3 L (35.0-46.0) % MCV 80.9 (80.0-100.0) fL MCH 27.0 (27.0-34.0) pg MCHC 33.4 (32.0-36.0) % RDW 18.2 H (11.6-17.2) % Plt Count 195 (150-450) th/mm3 MPV 7.3 (7.0-11.0) fL Neut % (Auto) 79.0 H (16.0-70.0) % Lymph % (Auto) 15.2 (9.0-44.0) % [place] % (Auto) 4.7 (0.0-8.0) % Eos % (Auto) 0.9 (0.0-4.0) % Baso % (Auto) 0.2 (0.0-2.0) % Neut # (Auto) 6.1 (1.8-7.7) th/mm3 Lymph # (Auto) 1.2 (1.0-4.8) th/mm3 [place] # (Auto) 0.4 (0.0-0.9) th/mm3 Eos # (Auto) 0.1 (0.0-0.4) th/mm3 Baso # (Auto) 0.0 (0.0-0.2) th/mm3 WBC Differential . Differential Comment Auto diff final Sodium (136-145) meq/L Potassium (3.5-5.1) meq/L Chloride (98-107) meq/L Carbon Dioxide (21.0-32.0) meq/L Anion Gap (5-15) meq/L BUN (7-18) mg/dL Creatinine (0.50-1.00) mg/dL Estimated GFR (>89) mL/min Random Glucose (74-106) mg/dL Lactic Acid (0.4-2.0) mmol/L Calcium (8.5-10.1) mg/dL Total Bilirubin (0.2-1.0) mg/dL AST (15-37) U/L ALT (10-53) U/L Alkaline Phosphatase (45-117) U/L Total Protein (6.4-8.2) g/dL Albumin (3.4-5.0) g/dL Urine Color Straw (Yellw/Straw) Urine Clarity Clear (Clear) Urine pH 6.0 (5.0-8.5) Ur Specific [place] 1.002 (1.002-1.035) Urine Protein Negative (Neg-Trace) mg/dL Urine Glucose (UA) Negative (Negative) mg/dL Urine Ketones Negative (Negative) mg/dL Urine Occult Blood Negative (Negative) Urine Nitrate Negative (Negative) Urine Bilirubin Negative (Negative) Urine Urobilinogen Less than 2 (Less than 2) mg/dL Ur Leukocyte Esterase Negative (Negative) Urine WBC Less than 1 (0-5) /hpf Ur Squamous Epith Cells <1 (0-5) /hpf Micro UA Comment Culture not ind Ur Microscopic Review Not Reportable Urine Culture Comments Culture not ind Urine Opiates Screen Neg (Neg) Ur Barbiturates Screen Neg (Neg) Ur Amphetamines Screen Neg (Neg) U Benzodiazepines Scrn Neg (Neg) Urine Cocaine Screen Neg (Neg) U Cannabinoids Screen Neg (Neg) 01/10/18 01/10/18 Range/Units 07:35 07:35 WBC (4.0-11.0) th/mm3 RBC (4.00-5.30) mil/mm3 Hgb (11.6-15.3) gm/dL Hct (35.0-46.0) % MCV (80.0-100.0) fL MCH (27.0-34.0) pg MCHC (32.0-36.0) % RDW (11.6-17.2) % Plt Count (150-450) th/mm3 MPV (7.0-11.0) fL Neut % (Auto) (16.0-70.0) % Lymph % (Auto) (9.0-44.0) % [place] % (Auto) (0.0-8.0) % Eos % (Auto) (0.0-4.0) % Baso % (Auto) (0.0-2.0) % Neut # (Auto) (1.8-7.7) th/mm3 Lymph # (Auto) (1.0-4.8) th/mm3 [place] # (Auto) (0.0-0.9) th/mm3 Eos # (Auto) (0.0-0.4) th/mm3 Baso # (Auto) (0.0-0.2) th/mm3 WBC Differential Differential Comment Sodium 144 (136-145) meq/L Potassium 3.5 (3.5-5.1) meq/L Chloride 109 H (98-107) meq/L Carbon Dioxide 24.4 (21.0-32.0) meq/L Anion Gap 11 (5-15) meq/L BUN 6 L (7-18) mg/dL Creatinine 0.72 (0.50-1.00) mg/dL Estimated GFR Greater than 89 (>89) mL/min Random Glucose 91 (74-106) mg/dL Lactic Acid 1.2 (0.4-2.0) mmol/L Calcium 7.6 L (8.5-10.1) mg/dL Total Bilirubin 0.6 (0.2-1.0) mg/dL AST 38 H (15-37) U/L ALT 35 (10-53) U/L Alkaline Phosphatase 385 H (45-117) U/L Total Protein 6.4 D (6.4-8.2) g/dL Albumin 1.8 L (3.4-5.0) g/dL Urine Color (Yellw/Straw) Urine Clarity (Clear) Urine pH (5.0-8.5) Ur Specific [place] (1.002-1.035) Urine Protein (Neg-Trace) mg/dL Urine Glucose (UA) (Negative) mg/dL Urine Ketones (Negative) mg/dL Urine Occult Blood (Negative) Urine Nitrate (Negative) Urine Bilirubin (Negative) Urine Urobilinogen (Less than 2) mg/dL Ur Leukocyte Esterase (Negative) Urine WBC (0-5) /hpf Ur Squamous Epith Cells (0-5) /hpf Micro UA Comment Ur Microscopic Review Urine Culture Comments Urine Opiates Screen (Neg) Ur Barbiturates Screen (Neg) Ur Amphetamines Screen (Neg) U Benzodiazepines Scrn (Neg) Urine Cocaine Screen (Neg) U Cannabinoids Screen (Neg) Imaging Data Radiologist's impression: Chest X-Ray 01/10/18 07:15 CONCLUSION: Stable appearance of the chest. Discharge Plan Discharge Disposition Patient Disposition: 30 Still Patient Discharge Condition Condition: Fair Discharge Details Diagnosis: Endocarditis, Pneumonia, IVDU (intravenous drug user), Bacteremia, Chronic pain , Acute septic pulmonary embolism Physicians Team ED Provider: Jose Manuel Graham Primary Care Provider: Primary Care Iman Payton Attending Provider: Avery Chong Discharge Interventions Interventions: Vital Signs Last Done: 01/10/18 06:35 Status ED Status: Admitted Patient
--- NOTE | 2018-01-10 07:55 | XR ---
EXAM DATE: 01/10/2018 7:48 AM EDT AGE/SEX: 42 years / Female INDICATIONS: Left sided chest pain and shortness of breath. CLINICAL DATA: This is the patient's initial encounter. Patient reports that signs and symptoms have been present for 1 week and indicates a pain score of 4/10. MEDICAL/SURGICAL HISTORY: None. None. COMPARISON: [facility] [place], CT CHEST W CONTRAST, 01/03/2018. . FINDINGS: There are faint bilateral nodular foci again seen corresponding to the areas of nodularity noted on r ecent CT chest, most pronounced in the left upper lobe. There is cardiomegaly. No effusions. Osseous structures are intact. CONCLUSION: Stable appearance of the chest. Electronically signed by: Binu Reynolds MD 01/10/2018 7:54 AM EDT
[2018-01-10] MEDS ORDERED: Vancomycin Inj 1 GM/200 ML PIGGYBACK IV.SIG SCH (08:00)
[2018-01-10] MEDS ORDERED: Vancomycin Inj 1,000 MG in Sodium Chlor 0.9% Inj 250 ML IV.SIG ONE (08:00)
[2018-01-10 08:03] LABS: Baso % (Auto) 0.2 % (0.0-2.0); Eos # (Auto) 0.1 th/mm3 (0.0-0.4); Eos % (Auto) 0.9 % (0.0-4.0); Hematocrit 23.3 % (35.0-46.0); Hemoglobin 7.8 gm/dL (11.6-15.3); Lymph # (Auto) 1.2 th/mm3 (1.0-4.8); Lymph % (Auto) 15.2 % (9.0-44.0); Mean Corpuscular HGB Conc 33.4 % (32.0-36.0); Mean Corpuscular Volume 80.9 fL (80.0-100.0); Mean Platelet Volume 7.3 fL (7.0-11.0); Mono # (Auto) 0.4 th/mm3 (0.0-0.9); Mono % (Auto) 4.7 % (0.0-8.0); Neut # (Auto) 6.1 th/mm3 (1.8-7.7); Platelet Count 195 th/mm3 (150-450); Red Blood Count 2.88 mil/mm3 (4.00-5.30); Red Cell Distribution Width 18.2 % (11.6-17.2); White Blood Count 7.7 th/mm3 (4.0-11.0)
[2018-01-10 08:09] LABS: Bilirubin,Urine Negative (Negative); Clarity,Urine Clear (Clear); Color,Urine Straw (Yellw/Straw); Glucose,Urine (UA) Negative (Negative); Leukocyte Esterase,Urine Negative (Negative); Nitrite,Urine Negative (Negative); Specific Gravity,Urine 1.002 (1.002-1.035); Squamous Epithelial Cell,Urine <1 /hpf (0-5)
[2018-01-10 08:15] LABS: Amphetamine Screen,Urine Neg (Neg); Barbiturate Screen,Urine Neg (Neg); Cannabinoid Screen,Urine Neg (Neg); Cocaine Screen,Urine Neg (Neg); Opiate Screen,Urine Neg (Neg)
[2018-01-10 08:21] LABS: Alanine Aminotransferase 35 U/L (10-53); Albumin 1.8 g/dL (3.4-5.0); Anion Gap 11 meq/L (5-15); Aspartate Aminotransferase 38 U/L (15-37); Blood Urea Nitrogen 6 mg/dL (7-18); Calcium 7.6 mg/dL (8.5-10.1); Carbon Dioxide 24.4 meq/L (21.0-32.0); Chloride 109 meq/L (98-107); Glomerular Filtration Rate Greater Than 89 mL/min (>89); Glucose,Random 91 mg/dL (74-106); Potassium 3.5 meq/L (3.5-5.1); Sodium 144 meq/L (136-145)
[2018-01-10 08:23] LABS: Alkaline Phosphatase 385 U/L (45-117); Total Protein 6.4 g/dL (6.4-8.2)
[2018-01-10] MEDS ORDERED: Vancomycin Consult Pharmacy OTHER PRN (09:02)
--- NOTE | 2018-01-10 09:14 | P.HPIM ---
History of Present Illness Primary Care Physician: No Primary Care Physician Chief Complaint: body ache History of Present Illness: patient is a 42 y/o female, OLIVER, who just signed out AMA after she was admitted with bacteremia, endocarditis, cellulitis of the foot and pneumonia. she says that ' she was not happy with the pain control' and she decided to leave. she says that she decided to come back because she noticed that her legs were more swollen and she was concerned.she reports on and off fever,chills and generalized body ache. she says that her last heroin injection was about six weeks ago. Inpatient Certification: I certify that the inpatient services were ordered in accordance with Medicare regulations governing the order. This includes certification that hospital inpatient services are reasonable and necessary and in the case of services not specified as inpatient-only under 42 CFR 419.22(n), that they are appropriately provided as inpatient services in accordance to with the 2-midnight benchmark under 43 CFR 412.3(e) Review of Systems All other systems reviewed negative except as stated in HPI PMFSH - History History Provided By: Patient - Medical History Medical History: Medical History (Last Updated 01/04/18 @ 14:52 by Lala Zavala MD) Anxiety Depression IV drug abuse Mastitis - Surgical History Surgical History: Surgical History (Last Updated 01/03/18 @ 17:28 by Marichuy Howell) H/O knee surgery Hx of breast biopsy - Family History Family History: Family History (Last Updated 01/03/18 @ 19:04 by Ida Trinidad MD) Mother Cancer Heart disease Father Cancer Heart disease - Tobacco History Second Hand Smoke Exposure: Yes Tobacco Use In Past 30 Days: Yes Smoking Status: Current every day smoker Tobacco Type: Cigarettes Packs Per Day: 1 Years Smoked: 20 - Alcohol History How Often Do You Have a Drink Containing Alcohol: 4 or more times a week - Substance Use History Substance History: Active Abuse - Substance Use Type Heroin Route Used: Intravenously - Travel History Recent Travel in the [place] Within the Last 8 Weeks: No Recent Travel Out of the Country Within the Last 8 Weeks: No - Immunization History Tetanus Immunization: <5 Years Medications and Allergies Active Medications: Active Medications Acetaminophen (Tylenol) 650 mg PO Q4H PRN PRN Reason: fever/pain Clonazepam (Klonopin) 1 mg PO TID MARCIA Non-Formulary Medication (Trazodone [Trazodone]) 300 mg PO DAILY PRN PRN Reason: Sleep Pharmacy Profile Note (Vancomycin Consult Pharmacy) 1 each OTHER UNSCH PRN PRN Reason: Pharmacy to dose Allergies Allergy/AdvReac Type Severity Reaction Status Date / Time No Known Allergies Allergy Verified 01/10/18 06:30 Home Medications Medication Instructions Recorded Confirmed Type clonazepam [Klonopin] 1 mg PO TID 01/03/18 01/10/18 History dextroamphetamine-amphetamine 30 mg PO BID 01/03/18 01/10/18 History [Adderall] trazodone 300 mg PO DAILY PRN 01/03/18 01/10/18 History Exam Vital signs: Vital Signs 01/10/18 06:30 01/10/18 06:35 01/10/18 08:11 Temperature 99.2 F 98.7 F Pulse Rate 85 95 H Respiratory Rate 16 16 Blood Pressure 131/78 120/70 Pulse Oximetry 98 99 100 01/10/18 08:12 Temperature Pulse Rate 90 Respiratory Rate Blood Pressure Pulse Oximetry Intake & Output 01/09/18 01/10/18 01/10/18 18:59 06:59 18:59 Weight 64.41 kg - Constitutional no acute distress - Routine HEENT Exam Head: Present: atraumatic - Routine Neck Exam Present: full ROM - Routine Respiratory Exam Present: CTA bilaterally - Routine Cardiovascular Exam Present: RRR - Routine Abdominal Exam Present: soft - Routine Extremities Exam Comments: bilateral pedal edema with some edema of both feet. - Routine Neurological Exam Present: alert, oriented X3 Results - Labs CBC & Chem 7: 01/10/18 07:35 01/10/18 07:35 Labs: Short CBC 01/10/18 Range/Units 07:35 WBC 7.7 (4.0-11.0) th/mm3 Hgb 7.8 L (11.6-15.3) gm/dL Hct 23.3 L (35.0-46.0) % Plt Count 195 (150-450) th/mm3 BMP 01/10/18 07:35 Sodium 144 Potassium 3.5 Chloride 109 H Carbon Dioxide 24.4 BUN 6 L Creatinine 0.72 Calcium 7.6 L Liver Function 01/10/18 Range/Units 07:35 Total Bilirubin 0.6 (0.2-1.0) mg/dL AST 38 H (15-37) U/L ALT 35 (10-53) U/L Alkaline Phosphatase 385 H (45-117) U/L Albumin 1.8 L (3.4-5.0) g/dL Urine 01/10/18 Range/Units 07:30 Urine Color Straw (Yellw/Straw) Urine Clarity Clear (Clear) Urine pH 6.0 (5.0-8.5) Ur Specific [place] 1.002 (1.002-1.035) Urine Protein Negative (Neg-Trace) mg/dL Urine Glucose (UA) Negative (Negative) mg/dL - Imaging Impressions Chest X-Ray 01/10/18 07:15 CONCLUSION: Stable appearance of the chest. Caprini VTE Risk Assessment Caprini VTE Risk Assessment: Moderate/High Risk (score >= 2) Caprini Risk Assessment Model: Point Value = 1 Point Value = 2 Point Value = 3 Point Value = 5 Age 41-60 Minor surgery BMI > 25 kg/m2 Swollen legs Varicose veins or History of unexplained or recurrent spontaneous Oral contraceptives or hormone replacement Sepsis (< 1 month) Serious lung disease, including pneumonia (< 1 month) Abnormal pulmonary function Acute myocardial infarction Congestive heart failure (< 1 month) History of inflammatory bowel disease Medical patient at bed rest Age 61-74 Arthroscopic surgery Major open surgery (> 45 min) Laparoscopic surgery (> 45 min) Malignancy Confined to bed (> 72 hours) Immobilizing plaster cast Central venous access Age >= 75 History of VTE Family history of VTE Factor V Leiden Prothrombin 15920L Lupus anticoagulant Anticardiolipin antibodies Elevated serum homocysteine Heparin-induced thrombocytopenia Other congenital or acquired thrombophilia Stroke (< 1 month) Elective arthroplasty Hip, pelvis, or leg fracture Acute spinal cord injury (< 1 month) Prophylaxis Regimen: Total Risk Factor Score Risk Level Prophylaxis Regimen 0-1 Low Early ambulation 2 Moderate Order ONE of the following: *Sequential Compression Device (SCD) *Heparin 5000 units SQ BID 3-4 Higher Order ONE of the following medications: *Heparin 5000 units SQ TID *Enoxaparin/Lovenox 40 mg SQ daily (WT < 150 kg, CrCl > 30 mL/min) *Enoxaparin/Lovenox 30 mg SQ daily (WT < 150 kg, CrCl > 10-29 mL/min) *Enoxaparin/Lovenox 30 mg SQ BID (WT < 150 kg, CrCl > 30 mL/min) AND/OR *Sequential Compression Device (SCD) 5 or more Highest Order ONE of the following medications: *Heparin 5000 units SQ TID (Preferred with Epidurals) *Enoxaparin/Lovenox 40 mg SQ daily (WT < 150 kg, CrCl > 30 mL/min) *Enoxaparin/Lovenox 30 mg SQ daily (WT < 150 kg, CrCl > 10-29 mL/min) *Enoxaparin/Lovenox 30 mg SQ BID (WT < 150 kg, CrCl > 30 mL/min) AND *Sequential Compression Device (SCD) Assessment and Plan - Plan A/P - staph endocarditis/ bacteremia with septic emboli and possible cellulitis of both feet/ IVDA ( patient signed out AMA last admission). echo with mitral and aortic valve vegetation and blood cultures positive for staph aureus. CT chest with possible pulmonary septic emboli continue with IV Vancomycin- will follow the repeated blood cultures and reconsult ID. -anemia; likely due to chronic disease- will monitor. -bilateral pedal edema; echo with EF 55%- will check venous doppler. -DVT prophylaxis with subq Lovenox. Discussed Condition With: ER physician and the patient.
--- NOTE | 2018-01-10 10:07 | US ---
EXAM DATE: 01/10/2018 9:56 AM EDT AGE/SEX: 42 years / Female INDICATIONS: Leg pain. CLINICAL DATA: This is the patient's initial encounter. Patient reports that signs and symptoms have been present for 1 day and indicates a pain score of 3/10. MEDICAL/SURGICAL HISTORY: . Anxiety. Depression. Mastitis. IV drug use. . Knee surgery. COMPARISON: [facility], CT KNEE RIGHT W/O CONTRAST, 03/30/2017. . TECHNIQUE: Venous ultrasound of both lower extremities was performed from the inguinal ligament to t he proximal calf. Real-time, color Doppler and spectral tracing, compression and augmentation techni ques were used. FINDINGS: Right Leg: Normal compression of the deep venous system from the inguinal region to the proximal francine f. No echogenic clot is seen. Normal response of the venous system to augmentation and respiration. Left Leg: Normal compression of the deep venous system from the inguinal region to the proximal calf . No echogenic clot is seen. Normal response of the venous system to augmentation and respiration. Other: None. CONCLUSION: 1. The study is negative for bilateral lower extremity deep venous thrombosis. Electronically signed by: Binu Reynolds MD 01/10/2018 10:06 AM EDT
[2018-01-10] MEDS: clonazePAM 1 MG Tablet PO SCH ×2 (13:29→17:31)
--- NOTE | 2018-01-10 16:50 | ECG ---
Date Performed: 01/10/2018 Time Performed: 07:49:20 PTAGE: 42 years EKG: Sinus rhythm POSSIBLE LEFT ATRIAL ENLARGEMENT NONSPECIFIC T-WAVE ABNORMALITY BORDERLINE ECG Since PREVIOUS TRACING , no significant change noted PREVIOUS TRACIN01/03/2018 17.01 DOCTOR: Bairon Euceda Interpretating Date/Time 01/10/2018 16:49:47
--- NOTE | 2018-01-10 17:08 | MB ---
cc: Esdras Ochoa MD DATE: 01/10/2018 REQUESTING PHYSICIAN: Elaine Chong MD REASON: Endocarditis. HISTORY OF PRESENT ILLNESS: This is a 42-year-old white female who just recently signed out from the hospital against medical advice. The patient was being treated for bacteremia due to Staphylococcus aureus and endocarditis. Cultures of the blood grew out Staphylococcus aureus on 01/03/2018 and 01/04/2018 and 01/06/2018. The patient signed herself out of the hospital and went to another hospital facility at [facility] to be evaluated. She states that she did not get proper treatment today and they sent her home with p.o. antibiotic prescriptions. She denied using IV drugs while she was away from the hospital here. She left the hospital at [place] on 01/06/2018. She was evaluated and managed by ID prior to leaving the hospital against medical advice. An echocardiogram on 01/05/2018 showed findings suggestive of a small vegetation on the tricuspid valve. The patient was on Zosyn and vancomycin prior to discharge. She states that she has pain in the throat and cough. She also is concerned about swelling of her legs. She has no other complaints. Chest x-ray was performed and it is showing patent bilateral nodule. CT scan of the chest on 01/03/2018 revealed cavitation in the left lower lobe and rounded areas of consolidation in both lower lobes. A wedge-shaped defect was noted in the spleen and also involving pleural thickening along the posterolateral margin of the left lower lobe. The patient has no sputum production. PAST MEDICAL HISTORY: Anxiety, depression, IV drug abuse, mastitis. History of knee surgery, history of breast biopsy. ALLERGIES: NO KNOWN DRUG ALLERGIES. MEDICATIONS: 1. Vancomycin. 2. Zosyn. 3. Lovenox. 4. Desyrel. 5. Klonopin. SOCIAL HISTORY: Positive tobacco use, 1 pack a day. Positive alcohol use. Positive IV drug use. FAMILY HISTORY: Noncontributory. REVIEW OF SYSTEMS: Pertinent as mentioned in history of present illness. Other systems have been reviewed and are negative. PHYSICAL EXAMINATION: GENERAL: This is a well-developed female who is in no acute distress. She appears drowsy. VITAL SIGNS: Temperature 97.6, BP 99/55, respirations 16, heart rate 88. HEENT: Head is atraumatic. Extraocular movements grossly intact. Pupils reactive to light. No icterus. Oropharynx multiple white spots at the posterior oropharynx. Also, also multiple white spots at the posterior aspect of the tongue. NECK: Supple without adenopathy. LUNGS: Decreased clear breath sounds. HEART: Regular S1 and S2, without audible murmurs. ABDOMEN: Bowel sounds present. Soft, nontender. RECTAL: Not performed. EXTREMITIES: Several punctate excoriated lesions tiny lesions at the toes and also a few at the lateral calf on the right side and also the left calf. SKIN: No diffuse rash. NEUROLOGIC: No gross focal finding. PSYCHIATRIC: The patient is calm and cooperative, although she feels drowsy. LABORATORY DATA: WBC 7.7, platelet count 195, hemoglobin 7.8. Creatinine 0.72, BUN 6, sodium 144, AST 38, ALT 35. Drug toxicology screen negative. IMPRESSION: 1. 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 2. Intravenous drug abuse. 3. Oral thrush. 4. Noncompliance with medication and treatment. RECOMMENDATIONS: 1. Monitor new blood culture ordered today. 2. Continue vancomycin. 3. Discontinue piperacillin/tazobactam. 4. Diflucan. 5. Nystatin swish and swallow for oral thrush. 6. Monitor the patient's clinical response. The patient is known to Dr. Zavala from prior admission and Dr. Zavala will be notified of her readmission. Thank you for this consultation. Esdras Ochoa MD FFD/ct , 01:14 PM , 01:38 PM
[2018-01-10] MEDS: Nystatin Liq 500,000 UNIT/5 ML UDC SWISH-SWAL SCH ×2 (17:31→22:11)
[2018-01-10] MEDS: Vancomycin Inj 1,000 MG in Sodium Chlor 0.9% Inj 250 ML IV.SIG SCH (17:31)
[2018-01-10] MEDS: Acetaminophen 325 MG Tablet PO PRN (17:36)
[2018-01-10] MEDS ORDERED: Ketorolac Inj 30 MG/ML (IVP) Vial IV.PUSH ONE (22:00)
[2018-01-11] MEDS: Acetaminophen 325 MG Tablet PO PRN ×2 (01:55→15:55)
[2018-01-11] MEDS: Vancomycin Inj 1,000 MG in Sodium Chlor 0.9% Inj 250 ML IV.SIG SCH ×2 (05:17→18:18)
[2018-01-11 06:23] LABS: Baso % (Auto) 0.5 % (0.0-2.0); Eos # (Auto) 0.2 th/mm3 (0.0-0.4); Eos % (Auto) 2.6 % (0.0-4.0); Hemoglobin 8.6 gm/dL (11.6-15.3); Lymph # (Auto) 1.2 th/mm3 (1.0-4.8); Mean Corpuscular Volume 81.9 fL (80.0-100.0); Mean Platelet Volume 7.4 fL (7.0-11.0); Mono # (Auto) 0.5 th/mm3 (0.0-0.9); Mono % (Auto) 6.1 % (0.0-8.0); Neut # (Auto) 5.6 th/mm3 (1.8-7.7); Neut % (Auto) 74.8 % (16.0-70.0); Platelet Count 224 th/mm3 (150-450); Red Blood Count 3.18 mil/mm3 (4.00-5.30); Red Cell Distribution Width 18.2 % (11.6-17.2); White Blood Count 7.4 th/mm3 (4.0-11.0)
[2018-01-11] MEDS: clonazePAM 1 MG Tablet PO SCH ×3 (08:25→18:18)
[2018-01-11] MEDS: Enoxaparin Inj 40 MG/0.4 ML Syringe SQ SCH (08:25)
[2018-01-11] MEDS: Nystatin Liq 500,000 UNIT/5 ML UDC SWISH-SWAL SCH ×4 (08:25→22:19)
--- NOTE | 2018-01-11 10:24 | P.PNIM ---
Subjective Interval history: f/u; bacteremia/ endocarditis in no acute distress. complaining of generalized body ache. no fever. d/w the RN. Physical Exam Vital signs: Vital Signs 01/10/18 10:30 01/10/18 12:00 01/10/18 16:00 Temperature 97.6 F 97.7 F Pulse Rate 84 88 97 H Respiratory Rate 20 16 17 Blood Pressure 102/57 L 99/57 L 107/69 Pulse Oximetry 100 100 97 01/10/18 20:00 01/11/18 00:00 01/11/18 03:09 Temperature 98.4 F 98.6 F Pulse Rate 96 H 91 H Respiratory Rate 16 16 16 Blood Pressure 113/65 111/64 Pulse Oximetry 95 95 01/11/18 04:00 01/11/18 08:00 Temperature 98.4 F 98.7 F Pulse Rate 94 H 90 Respiratory Rate 16 20 Blood Pressure 118/65 123/75 Pulse Oximetry 95 98 Intake & Output 01/10/18 01/11/18 01/11/18 18:59 06:59 18:59 Intake Total 850 / 850 1350 / 1350 255 / 255 Balance 850 / 850 1350 / 1350 255 / 255 Weight 73 kg Intake: IV 350 / 350 250 / 250 255 / 255 Zosyn 4.5 GM Premix 4.5 gm In 100 / 100 100 ml @ 200 mls/hr IV.SIG ONCE ONE Rx#:[id number] Vancomycin Inj 1,000 MG In NS 250 / 250 250 / 250 255 / 255 Inj 250 ML @ 250 mls/hr IV.SIG Q12H MARCIA Rx#:[id number] Oral 500 / 500 1100 / 1100 Other: # Voids 2 3 Weight On Admission 73 kg - Constitutional no acute distress - Routine Respiratory Exam Present: CTA bilaterally - Routine Cardiovascular Exam Present: RRR - Routine Abdominal Exam Present: soft - Routine Extremities Exam Comments: bilateral pedal edema. - Routine Neurological Exam Present: alert, oriented X3 Results - Labs CBC & Chem 7: 01/11/18 05:20 01/10/18 07:35 Laboratory Results - last 24 hr 01/10/18 01/11/18 10:30 05:20 WBC 7.4 RBC 3.18 L Hgb 8.6 L Hct 26.0 L MCV 81.9 MCH 27.0 MCHC 33.0 RDW 18.2 H Plt Count 224 MPV 7.4 Neut % (Auto) 74.8 H Lymph % (Auto) 16.0 [place] % (Auto) 6.1 Eos % (Auto) 2.6 Baso % (Auto) 0.5 Neut # (Auto) 5.6 Lymph # (Auto) 1.2 [place] # (Auto) 0.5 Eos # (Auto) 0.2 Baso # (Auto) 0.0 WBC Differential . Differential Comment Auto diff final Blood Type A Positive Blood Type Recheck Required Antibody Screen Negative Microbiology 01/10/18 07:30 Blood - Peripheral Aerobic Blood Culture - Preliminary gram positive cocci 01/10/18 07:30 Blood - Peripheral Anaerobic Blood Culture - Preliminary gram positive cocci 01/10/18 07:35 Blood - Peripheral Aerobic Blood Culture - Preliminary gram positive cocci 01/10/18 07:35 Blood - Peripheral Anaerobic Blood Culture - Preliminary gram positive cocci Assessment and Plan - Plan A/P - staph endocarditis/ bacteremia with septic emboli and possible cellulitis of both feet/ IVDA ( patient signed out AMA last admission). echo with mitral and aortic valve vegetation and blood cultures positive for staph aureus. CT chest with possible pulmonary septic emboli continue with IV Vancomycin- will follow the repeated blood cultures . ID consult appreciated. -anemia; likely due to chronic disease- will monitor. -bilateral pedal edema; echo with EF 55%- venous doppler negative for DVT. -DVT prophylaxis with subq Lovenox.
--- NOTE | 2018-01-11 17:26 | P.PNID ---
Subjective Remarks: Patient notes that she has pain all over. States that she is in tears because of the pain. Requesting pain medication. No fever. Has cough but is not producing sputum. Legs remain swollen. Blood cultures are positive in all 4 bottles with gram-positive cocci. 42-year-old white female who just recently signed out from the hospital against medical advice. The patient was being treated for bacteremia due to Staphylococcus aureus and endocarditis. Cultures of the blood grew out Staphylococcus aureus on 01/03/2018 and 01/04/2018 and 01/06/2018. The patient signed herself out of the hospital and went to another hospital facility at [facility] to be evaluated. She states that she did not get proper treatment today and they sent her home with p.o. antibiotic prescriptions. She denied using IV drugs while she was away from the hospital here. She left the hospital at [place] on 01/06/2018. She was evaluated and managed by ID prior to leaving the hospital against medical advice. An echocardiogram on 01/05/2018 showed findings suggestive of a small vegetation on the tricuspid valve. Past Medical History: PAST MEDICAL HISTORY: Anxiety, depression, IV drug abuse, mastitis. History of knee surgery, history of breast biopsy. Allergies/Adverse Reactions: Allergies No Known Allergies Allergy (Verified 01/10/18 06:30) Objective Vital Signs 01/10/18 20:00 01/11/18 00:00 01/11/18 03:09 Temperature 98.4 F 98.6 F Pulse Rate 96 H 91 H Respiratory Rate 16 16 16 Blood Pressure 113/65 111/64 Pulse Oximetry 95 95 01/11/18 04:00 01/11/18 08:00 01/11/18 10:24 Temperature 98.4 F 98.7 F Pulse Rate 94 H 90 86 Respiratory Rate 16 20 Blood Pressure 118/65 123/75 Pulse Oximetry 95 98 01/11/18 12:00 01/11/18 16:00 Temperature 98.8 F 98.5 F Pulse Rate 91 H 95 H Respiratory Rate 20 20 Blood Pressure 120/74 130/85 Pulse Oximetry 98 96 Intake & Output 01/10/18 01/11/18 01/11/18 18:59 06:59 18:59 Intake Total 850 / 850 1350 / 1350 735 / 735 Balance 850 / 850 1350 / 1350 735 / 735 Weight 73 kg Intake: IV 350 / 350 250 / 250 255 / 255 Zosyn 4.5 GM Premix 4.5 gm In 100 / 100 100 ml @ 200 mls/hr IV.SIG ONCE ONE Rx#:[id number] Vancomycin Inj 1,000 MG In NS 250 / 250 250 / 250 255 / 255 Inj 250 ML @ 250 mls/hr IV.SIG Q12H [facility] Rx#:[id number] Oral 500 / 500 1100 / 1100 480 / 480 Other: # Voids 2 3 Weight On Admission 73 kg 01/10/18 07:30 Blood - Peripheral Aerobic Blood Culture - Preliminary gram positive cocci 01/10/18 07:30 Blood - Peripheral Anaerobic Blood Culture - Preliminary gram positive cocci 01/10/18 07:35 Blood - Peripheral Aerobic Blood Culture - Preliminary gram positive cocci 01/10/18 07:35 Blood - Peripheral Anaerobic Blood Culture - Preliminary gram positive cocci Lab - Hematology Results 01/10/18 01/11/18 07:35 05:20 WBC 7.7 7.4 RBC 2.88 L 3.18 L Hgb 7.8 L 8.6 L Hct 23.3 L 26.0 L MCV 80.9 81.9 MCH 27.0 27.0 MCHC 33.4 33.0 RDW 18.2 H 18.2 H Plt Count 195 224 MPV 7.3 7.4 Neut % (Auto) 79.0 H 74.8 H Lymph % (Auto) 15.2 16.0 [place] % (Auto) 4.7 6.1 Eos % (Auto) 0.9 2.6 Baso % (Auto) 0.2 0.5 Neut # (Auto) 6.1 5.6 Lymph # (Auto) 1.2 1.2 [place] # (Auto) 0.4 0.5 Eos # (Auto) 0.1 0.2 Baso # (Auto) 0.0 0.0 WBC Differential . . Differential Comment Auto diff final Auto diff final Lab - Chemistry Results 01/10/18 01/10/18 07:35 07:35 Sodium 144 Potassium 3.5 Chloride 109 H Carbon Dioxide 24.4 Anion Gap 11 BUN 6 L Creatinine 0.72 Estimated GFR Greater than 89 Random Glucose 91 Lactic Acid 1.2 Calcium 7.6 L Total Bilirubin 0.6 AST 38 H ALT 35 Alkaline Phosphatase 385 H Total Protein 6.4 D Albumin 1.8 L Imaging: ITS Impressions Venous Doppler Study 01/10/18 00:00 CONCLUSION: 1. The study is negative for bilateral lower extremity deep venous thrombosis. Chest X-Ray 01/10/18 07:15 CONCLUSION: Stable appearance of the chest. Physical Exam: GENERAL: This is a well-developed female who is in no acute distress. HEENT: Head is atraumatic. Extraocular movements grossly intact. Pupils reactive to light. No icterus. Oropharynx multiple white spots at the posterior oropharynx. Also, also multiple white spots at the posterior aspect of the tongue. NECK: Supple without adenopathy. LUNGS: Decreased clear breath sounds. HEART: Regular S1 and S2, without audible murmurs. ABDOMEN: Bowel sounds present. Soft, nontender. EXTREMITIES: Several excoriated lesions tiny lesions at the toes and also a few at the lateral calf on the right side and also the left calf. 1+ edema of the legs. SKIN: No diffuse rash. NEUROLOGIC: No gross focal finding. PSYCHIATRIC: Calm and cooperative. Assessment and Plan - Plan IMPRESSION: 1. 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 Blood cultures positive. 2. Intravenous drug abuse. 3. Oral thrush. 4. Noncompliance with medication and treatment. RECOMMENDATIONS: 1. Add cefazolin IV. 2. Continue vancomycin. 3. Continue Diflucan p.o. 4. Monitor the blood cultures. 5. Nystatin swish and swallow for oral thrush. 6. Monitor the clinical response.
[2018-01-11] MEDS ORDERED: ceFAZolin 2 GM Premix Inj 2 GM/100 ML BAG IV.SIG SCH (22:00)
[2018-01-11] MEDS: ceFAZolin 2 GM/NS 100 ML IV; Q8H IV.SIG SCH ×2 (22:19)
[2018-01-11] MEDS: traZODone 100 MG Tablet PO PRN (22:19)
[2018-01-12] MEDS ORDERED: Pharmacy Ordered Lab Info OTHER ONE (05:45)
[2018-01-12] MEDS: Vancomycin Inj 1,000 MG in Sodium Chlor 0.9% Inj 250 ML IV.SIG SCH ×3 (06:10→21:57)
[2018-01-12] MEDS: ceFAZolin 2 GM/NS 100 ML IV; Q8H IV.SIG SCH ×8 (07:31→21:57)
[2018-01-12] MEDS: clonazePAM 1 MG Tablet PO SCH ×3 (08:43→19:21)
[2018-01-12] MEDS: Enoxaparin Inj 40 MG/0.4 ML Syringe SQ SCH (08:43)
[2018-01-12] MEDS: Nystatin Liq 500,000 UNIT/5 ML UDC SWISH-SWAL SCH ×4 (08:44→21:55)
--- NOTE | 2018-01-12 10:19 | P.PNIM ---
Subjective Interval history: f/u; endocarditis/bacteremia in no acute distress. looks fairly comfortable. Tmax 99.9. d/w the RN and no acute issues over night. Physical Exam Vital signs: Vital Signs 01/11/18 10:24 01/11/18 12:00 01/11/18 16:00 Temperature 98.8 F 98.5 F Pulse Rate 86 91 H 95 H Respiratory Rate 20 20 Blood Pressure 120/74 130/85 Pulse Oximetry 98 96 01/11/18 20:00 01/12/18 00:00 01/12/18 00:10 Temperature 99.4 F 99.5 F Pulse Rate 99 H 94 H Respiratory Rate 18 18 16 Blood Pressure 126/76 125/78 Pulse Oximetry 95 100 01/12/18 04:00 01/12/18 07:31 01/12/18 08:00 Temperature 99.0 F 99.9 F H Pulse Rate 95 H 105 H Respiratory Rate 18 18 16 Blood Pressure 131/68 125/77 Pulse Oximetry 100 96 Intake & Output 01/11/18 01/12/18 01/12/18 18:59 06:59 18:59 Intake Total 735 / 735 360 / 360 250 / 250 Balance 735 / 735 360 / 360 250 / 250 Weight 72.2 kg Intake: IV 255 / 255 360 / 360 250 / 250 Vancomycin Inj 1,000 MG In NS 255 / 255 260 / 260 250 / 250 Inj 250 ML @ 250 mls/hr IV.SIG Q12H [facility] Rx#:[id number] Ancef Inj 2,000 MG In NS Inj 80 100 / 100 ML @ 200 mls/hr IV.SIG Q8HR [facility] Rx#:[id number] Oral 480 / 480 Other: # Voids 2 # Bowel Movements 1 - Constitutional no acute distress - Routine Respiratory Exam Present: CTA bilaterally - Routine Cardiovascular Exam Present: RRR - Routine Abdominal Exam Present: soft - Routine Extremities Exam Comments: bilateral pedal edema. - Routine Neurological Exam Present: alert, oriented X3 Results - Labs CBC & Chem 7: 01/11/18 05:20 01/10/18 07:35 Laboratory Results - last 24 hr 01/12/18 05:13 Vancomycin Trough 7.9 Microbiology 01/10/18 07:30 Blood - Peripheral Aerobic Blood Culture - Preliminary gram positive cocci 01/10/18 07:30 Blood - Peripheral Anaerobic Blood Culture - Preliminary gram positive cocci 01/10/18 07:35 Blood - Peripheral Aerobic Blood Culture - Preliminary gram positive cocci 01/10/18 07:35 Blood - Peripheral Anaerobic Blood Culture - Preliminary gram positive cocci Assessment and Plan - Plan A/P - staph endocarditis/ bacteremia with septic emboli and possible cellulitis of both feet/ IVDA ( patient signed out AMA last admission). echo with mitral and aortic valve vegetation and blood cultures positive for staph aureus. CT chest with possible pulmonary septic emboli repeated blood cultures from 01/10 with gram-positive cocci- continue IV Vanco and Ancef per ID . -anemia; likely due to chronic disease- stable- will monitor. -bilateral pedal edema; echo with EF 55%- venous doppler negative for DVT. -DVT prophylaxis with subq Lovenox. Discharge Planning: home when stable.
[2018-01-12] MEDS: Acetaminophen 325 MG Tablet PO PRN (16:23)
[2018-01-12] MEDS: traZODone 100 MG Tablet PO PRN (21:54)
[2018-01-13] MEDS: Acetaminophen 325 MG Tablet PO PRN (03:54)
--- NOTE | 2018-01-13 05:53 | XR ---
EXAM DATE: 01/13/2018 5:48 AM EDT AGE/SEX: 42 years / Female INDICATIONS: Fell this morning, pain under right breast, short of breath CLINICAL DATA: This is the patient's initial encounter. Patient reports that signs and symptoms have been present for 1 day and indicates a pain score of 10/10. MEDICAL/SURGICAL HISTORY: . endocarditis None. COMPARISON: [facility] [place], CHEST 1V SINGLE AP, 01/10/2018. [facility] [place], CT CHEST W CONTRAST, 01/03/2018. . FINDINGS: Portable AP view of the chest demonstrates a normal-sized cardiac silhouette. There is a stable cavit [place] nodule in the left upper lobe with subtle patchy nodular areas identified bilaterally. There is s light blunting of the left costophrenic sulcus. No pneumothorax is present. The bones and soft tissue s demonstrate no acute finding. CONCLUSION: 1. Stable nodular consolidative areas bilaterally with cavitary lesion in the left upper lobe. Findi ngs have not significantly changed since the study from 3 days ago. 2. Small left pleural effusion. Electronically signed by: Jose Bedoya MD 01/13/2018 5:52 AM EDT
[2018-01-13] MEDS: ceFAZolin 2 GM/NS 100 ML IV; Q8H IV.SIG SCH ×6 (06:08→23:19)
[2018-01-13] MEDS: Vancomycin Inj 1,000 MG in Sodium Chlor 0.9% Inj 250 ML IV.SIG SCH (06:08)
[2018-01-13] MEDS: Enoxaparin Inj 40 MG/0.4 ML Syringe SQ SCH (10:16)
[2018-01-13] MEDS: clonazePAM 1 MG Tablet PO SCH ×3 (10:17→17:51)
[2018-01-13] MEDS: Nystatin Liq 500,000 UNIT/5 ML UDC SWISH-SWAL SCH ×4 (10:18→21:38)
--- NOTE | 2018-01-13 11:26 | P.PNIM ---
Subjective Interval history: in no acute distress. says that had a fall last night and now complaining of some pain to the right rib cage. looks fairly comfortable although asking for ' more pain meds.'. T max 100.3. Physical Exam Vital signs: Vital Signs 01/12/18 12:00 01/12/18 16:00 01/12/18 20:00 Temperature 98.9 F 99.7 F H Pulse Rate 96 H 100 H Respiratory Rate 16 16 18 Blood Pressure 118/66 125/69 Pulse Oximetry 96 99 01/12/18 21:20 01/12/18 22:25 01/13/18 04:00 Temperature 98 F 98 F Pulse Rate 80 97 H Respiratory Rate 18 18 17 Blood Pressure 105/70 105/63 Pulse Oximetry 99 95 01/13/18 04:25 01/13/18 06:15 01/13/18 07:24 Temperature 98.2 F Pulse Rate 80 Respiratory Rate 18 16 18 Blood Pressure 103/67 Pulse Oximetry 99 01/13/18 08:00 Temperature 100.3 F H Pulse Rate 95 H Respiratory Rate 17 Blood Pressure 118/75 Pulse Oximetry 96 Intake & Output 01/12/18 01/13/18 01/13/18 18:59 06:59 18:59 Intake Total 2200 / 2200 2300 / 2300 Balance 2200 / 2200 2300 / 2300 Weight 72.5 kg Intake: IV 700 / 700 Vancomycin Inj 1,000 MG In NS 500 / 500 Inj 250 ML @ 250 mls/hr IV.SIG Q8H [facility] Rx#:[id number] Ancef Inj 2,000 MG In NS Inj 80 200 / 200 ML @ 200 mls/hr IV.SIG Q8HR [facility] Rx#:[id number] Oral 1500 / 1500 2300 / 2300 Other: # Voids 4 6 # Bowel Movements 0 - Constitutional no acute distress - Routine Respiratory Exam Present: CTA bilaterally - Routine Cardiovascular Exam Present: RRR - Routine Abdominal Exam Present: soft - Routine Extremities Exam Comments: no pedal edema. - Routine Neurological Exam Present: alert, oriented X3 Results - Labs CBC & Chem 7: 01/11/18 05:20 01/10/18 07:35 Microbiology 01/12/18 10:20 Blood - Peripheral Aerobic Blood Culture - Preliminary No growth in 1 day 01/12/18 10:20 Blood - Peripheral Anaerobic Blood Culture - Preliminary No growth in 1 day 01/12/18 10:30 Blood - Peripheral Aerobic Blood Culture - Preliminary No growth in 1 day 01/12/18 10:30 Blood - Peripheral Anaerobic Blood Culture - Preliminary No growth in 1 day 01/10/18 07:30 Blood - Peripheral Aerobic Blood Culture - Final Staphylococcus aureus 01/10/18 07:30 Blood - Peripheral Anaerobic Blood Culture - Final Staphylococcus aureus 01/10/18 07:35 Blood - Peripheral Aerobic Blood Culture - Final Staphylococcus aureus 01/10/18 07:35 Blood - Peripheral Anaerobic Blood Culture - Final Staphylococcus aureus - Imaging Impressions Chest X-Ray 01/13/18 04:07 CONCLUSION: 1. Stable nodular consolidative areas bilaterally with cavitary lesion in the left upper lobe. Findings have not significantly changed since the study from 3 days ago. 2. Small left pleural effusion. 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 echo with mitral and aortic valve vegetation and blood cultures positive for staph aureus. CT chest with possible pulmonary septic emboli repeated blood cultures from 01/10 with gram-positive cocci- continue IV Ancef per ID . will follow the repeated blood cultures. -fall with some pain to the right rib cage; will continue with pain control- CXR today with no change. -anemia; likely due to chronic disease- stable- will monitor. -bilateral pedal edema; echo with EF 55%- venous doppler negative for DVT. -DVT prophylaxis with subq Lovenox. d/w . Discharge Planning: home when stable.
--- NOTE | 2018-01-13 11:27 | P.PNID ---
Subjective Remarks: 42-year-old white female who just recently signed out from the hospital against medical advice. The patient was being treated for bacteremia due to Staphylococcus aureus and endocarditis. Cultures of the blood grew out Staphylococcus aureus on 01/03/2018 and 01/04/2018 and 01/06/2018. The patient signed herself out of the hospital and went to another hospital facility at [facility] to be evaluated. She states that she did not get proper treatment today and they sent her home with p.o. antibiotic prescriptions. She denied using IV drugs while she was away from the hospital here. She left the hospital at [place] on 01/06/2018. She was evaluated and managed by ID prior to leaving the hospital against medical advice. An echocardiogram on 01/05/2018 showed findings suggestive of a small vegetation on the tricuspid valve. Notes reviewed Low grade temps overnight C/O diffuse body aches C/O that her pain meds not working No rash or itching No diarrhea BC 01/10 MSSA BC from last admission 01/03-01/06 all with MSSA Echo with MV and TV vegetation Antibiotics: Ancef vancomycin Past Medical History: Anxiety, depression, IV drug abuse, mastitis. History of knee surgery, history of breast biopsy. Allergies/Adverse Reactions: Allergies No Known Allergies Allergy (Verified 01/10/18 06:30) Objective Vital Signs 01/12/18 12:00 01/12/18 16:00 01/12/18 20:00 Temperature 98.9 F 99.7 F H Pulse Rate 96 H 100 H Respiratory Rate 16 16 18 Blood Pressure 118/66 125/69 Pulse Oximetry 96 99 01/12/18 21:20 01/12/18 22:25 01/13/18 04:00 Temperature 98 F 98 F Pulse Rate 80 97 H Respiratory Rate 18 18 17 Blood Pressure 105/70 105/63 Pulse Oximetry 99 95 01/13/18 04:25 01/13/18 06:15 01/13/18 07:24 Temperature 98.2 F Pulse Rate 80 Respiratory Rate 18 16 18 Blood Pressure 103/67 Pulse Oximetry 99 01/13/18 08:00 Temperature 100.3 F H Pulse Rate 95 H Respiratory Rate 17 Blood Pressure 118/75 Pulse Oximetry 96 Intake & Output 01/12/18 01/13/18 01/13/18 18:59 06:59 18:59 Intake Total 2200 / 2200 2300 / 2300 Balance 2200 / 2200 2300 / 2300 Weight 72.5 kg Intake: IV 700 / 700 Vancomycin Inj 1,000 MG In NS 500 / 500 Inj 250 ML @ 250 mls/hr IV.SIG Q8H [facility] Rx#:[id number] Ancef Inj 2,000 MG In NS Inj 80 200 / 200 ML @ 200 mls/hr IV.SIG Q8HR [facility] Rx#:[id number] Oral 1500 / 1500 2300 / 2300 Other: # Voids 4 6 # Bowel Movements 0 01/12/18 10:20 Blood - Peripheral Aerobic Blood Culture - Preliminary No growth in 1 day 01/12/18 10:20 Blood - Peripheral Anaerobic Blood Culture - Preliminary No growth in 1 day 01/12/18 10:30 Blood - Peripheral Aerobic Blood Culture - Preliminary No growth in 1 day 01/12/18 10:30 Blood - Peripheral Anaerobic Blood Culture - Preliminary No growth in 1 day 01/10/18 07:30 Blood - Peripheral Aerobic Blood Culture - Final Staphylococcus aureus 01/10/18 07:30 Blood - Peripheral Anaerobic Blood Culture - Final Staphylococcus aureus 01/10/18 07:35 Blood - Peripheral Aerobic Blood Culture - Final Staphylococcus aureus 01/10/18 07:35 Blood - Peripheral Anaerobic Blood Culture - Final Staphylococcus aureus 01/13/18 05:58 Blood - Peripheral Aerobic Blood Culture - Pending 01/13/18 05:58 Blood - Peripheral Anaerobic Blood Culture - Pending Imaging: ITS Impressions Venous Doppler Study 01/10/18 00:00 CONCLUSION: 1. The study is negative for bilateral lower extremity deep venous thrombosis. Chest X-Ray 01/13/18 04:07 CONCLUSION: 1. Stable nodular consolidative areas bilaterally with cavitary lesion in the left upper lobe. Findings have not significantly changed since the study from 3 days ago. 2. Small left pleural effusion. Physical Exam: GENERAL: Awake and alert, NAD, not toxic appearing HEENT: Head is atraumatic. Extraocular movements grossly intact. Pupils reactive to light. No icterus. No petechia or hemorrhage. Moist oral mucosa NECK: Supple without adenopathy. LUNGS: clear breath sounds. HEART: Regular S1 and S2, without audible murmurs. ABDOMEN: Bowel sounds present. Soft, nontender. EXTREMITIES: Several scabbed lesions tiny lesions at the toes and also a few at the lateral calf on the right side and also the left calf, all healing, do not look infected. No edema noted in both feet. SKIN: No diffuse rash. NEUROLOGIC: No gross focal finding. PSYCHIATRIC: Calm and cooperative. LINE: No evidence of infection Assessment and Plan - Plan IMPRESSION: MSSA sepsis Endocarditis, MV and TV vegetation onecho Active IVDU Poor compliance to Rx RECOMMENDATIONS: Continue cefazolin IV. Stop vancomycin. Continue Diflucan p.o. Repeat BC to document clearing Follow temps Monitor progress Will determine course of Abx once work-up is completed D/W Dr Chong ([facility])
[2018-01-13] MEDS ORDERED: Pharmacy Ordered Lab Info OTHER ONE (13:45)
[2018-01-13] MEDS: traZODone 100 MG Tablet PO PRN (21:44)
[2018-01-14] MEDS: ceFAZolin 2 GM/NS 100 ML IV; Q8H IV.SIG SCH ×4 (05:29→13:07)
--- NOTE | 2018-01-14 07:59 | P.PNID ---
Subjective Remarks: 42-year-old white female who just recently signed out from the hospital against medical advice. The patient was being treated for bacteremia due to Staphylococcus aureus and endocarditis. Cultures of the blood grew out Staphylococcus aureus on 01/03/2018 and 01/04/2018 and 01/06/2018. The patient signed herself out of the hospital and went to another hospital facility at [facility] to be evaluated. She states that she did not get proper treatment today and they sent her home with p.o. antibiotic prescriptions. She denied using IV drugs while she was away from the hospital here. She left the hospital at [place] on 01/06/2018. She was evaluated and managed by ID prior to leaving the hospital against medical advice. An echocardiogram on 01/05/2018 showed findings suggestive of a small vegetation on the tricuspid valve. Notes reviewed Temps better overnight New BC from 01/12 Ancef started 01/12 C/O diffuse body aches No rash or itching No diarrhea BC 01/10 MSSA BC from last admission 01/03-01/06 all with MSSA Echo with MV and TV vegetation Antibiotics: Ancef Past Medical History: Anxiety, depression, IV drug abuse, mastitis. History of knee surgery, history of breast biopsy. Allergies/Adverse Reactions: Allergies No Known Allergies Allergy (Verified 01/10/18 06:30) Objective Vital Signs 01/13/18 08:00 01/13/18 12:00 01/13/18 16:00 Temperature 100.3 F H 99.7 F H 98.5 F Pulse Rate 95 H 104 H 91 H Respiratory Rate 17 17 17 Blood Pressure 118/75 108/56 L 107/64 Pulse Oximetry 96 97 99 01/13/18 20:00 01/13/18 21:20 01/13/18 23:50 Temperature 99 F Pulse Rate 101 H 96 H Respiratory Rate 16 16 Blood Pressure 111/69 Pulse Oximetry 99 01/14/18 00:30 01/14/18 04:30 01/14/18 05:00 Temperature 98.8 F 98 F Pulse Rate 113 H 110 H 110 H Respiratory Rate 16 19 Blood Pressure 105/60 122/69 Pulse Oximetry 100 95 Intake & Output 01/13/18 01/14/18 01/14/18 18:59 06:59 18:59 Intake Total 100 / 100 6190 / 6190 Balance 100 / 100 6190 / 6190 Weight 73 kg Intake: IV 100 / 100 200 / 200 Ancef Inj 2,000 MG In NS Inj 80 100 / 100 200 / 200 ML @ 200 mls/hr IV.SIG Q8HR [facility] Rx#:[id number] Oral 5990 / 5990 Other: # Voids 2 Date of Last Bowel Movement 01/13/18 # Bowel Movements 0 01/12/18 10:30 Blood - Peripheral Aerobic Blood Culture - Preliminary gram positive cocci 01/12/18 10:30 Blood - Peripheral Anaerobic Blood Culture - Preliminary No growth in 1 day 01/12/18 10:20 Blood - Peripheral Aerobic Blood Culture - Preliminary gram positive cocci 01/12/18 10:20 Blood - Peripheral Anaerobic Blood Culture - Preliminary No growth in 1 day 01/10/18 07:30 Blood - Peripheral Aerobic Blood Culture - Final Staphylococcus aureus 01/10/18 07:30 Blood - Peripheral Anaerobic Blood Culture - Final Staphylococcus aureus 01/10/18 07:35 Blood - Peripheral Aerobic Blood Culture - Final Staphylococcus aureus 01/10/18 07:35 Blood - Peripheral Anaerobic Blood Culture - Final Staphylococcus aureus 01/13/18 05:58 Blood - Peripheral Aerobic Blood Culture - Pending 01/13/18 05:58 Blood - Peripheral Anaerobic Blood Culture - Pending Lab - Chemistry Results 01/13/18 11:15 BUN 8 Creatinine 0.81 Estimated GFR 78 L Imaging: ITS Impressions Venous Doppler Study 01/10/18 00:00 CONCLUSION: 1. The study is negative for bilateral lower extremity deep venous thrombosis. Chest X-Ray 01/13/18 04:07 CONCLUSION: 1. Stable nodular consolidative areas bilaterally with cavitary lesion in the left upper lobe. Findings have not significantly changed since the study from 3 days ago. 2. Small left pleural effusion. Physical Exam: GENERAL: Awake and alert, NAD HEENT: Head is atraumatic. Extraocular movements grossly intact. Pupils reactive to light. No icterus. No petechia or hemorrhage. Moist oral mucosa NECK: Supple without adenopathy. LUNGS: clear breath sounds. HEART: Regular S1 and S2, without audible murmurs. ABDOMEN: Bowel sounds present. Soft, nontender. EXTREMITIES: Several scabbed lesions tiny lesions at the toes and also a few at the lateral calf on the right side and also the left calf, all healing, do not look infected. No edema noted in both feet. SKIN: No diffuse rash. NEUROLOGIC: No gross focal finding. PSYCHIATRIC: Calm and cooperative. LINE: No evidence of infection Assessment and Plan - Plan IMPRESSION: MSSA sepsis Endocarditis, MV and TV vegetation onecho Active IVDU Poor compliance to Rx RECOMMENDATIONS: Continue cefazolin IV. Continue Diflucan p.o. Repeat BC to document clearing If BC remains (+), consider adding Gentamicin Follow temps Monitor progress Will determine course of Abx once work-up is completed I will be off Jan 15- Other ID MD covering in my absence
[2018-01-14] MEDS: Enoxaparin Inj 40 MG/0.4 ML Syringe SQ SCH (08:02)
[2018-01-14] MEDS: clonazePAM 1 MG Tablet PO SCH (08:02)
[2018-01-14] MEDS: Nystatin Liq 500,000 UNIT/5 ML UDC SWISH-SWAL SCH ×2 (08:03→12:05)
[2018-01-14 08:48] VITALS: RESP 18
--- NOTE | 2018-01-14 11:32 | P.PNIM ---
Subjective Interval history: f/u; endocarditis in no acute distress and resting comfortably. no fever today. Physical Exam Vital signs: Vital Signs 01/13/18 12:00 01/13/18 16:00 01/13/18 20:00 Temperature 99.7 F H 98.5 F Pulse Rate 104 H 91 H 101 H Respiratory Rate 17 17 Blood Pressure 108/56 L 107/64 Pulse Oximetry 97 99 01/13/18 21:20 01/13/18 23:50 01/14/18 00:30 Temperature 99 F 98.8 F Pulse Rate 96 H 113 H Respiratory Rate 16 16 16 Blood Pressure 111/69 105/60 Pulse Oximetry 99 100 01/14/18 04:30 01/14/18 05:00 01/14/18 08:00 Temperature 98 F 98.7 F Pulse Rate 110 H 110 H 107 H Respiratory Rate 19 19 Blood Pressure 122/69 114/68 Pulse Oximetry 95 97 01/14/18 08:48 01/14/18 09:00 Temperature Pulse Rate 107 H Respiratory Rate 18 Blood Pressure Pulse Oximetry Intake & Output 01/13/18 01/14/18 01/14/18 18:59 06:59 18:59 Intake Total 100 / 100 6190 / 6190 Balance 100 / 100 6190 / 6190 Weight 73 kg Intake: IV 100 / 100 200 / 200 Ancef Inj 2,000 MG In NS Inj 80 100 / 100 200 / 200 ML @ 200 mls/hr IV.SIG Q8HR [facility] Rx#:[id number] Oral 5990 / 5990 Other: # Voids 2 Date of Last Bowel Movement 01/13/18 # Bowel Movements 0 - Constitutional no acute distress - Routine Respiratory Exam Present: CTA bilaterally - Routine Cardiovascular Exam Present: RRR - Routine Abdominal Exam Present: soft - Routine Extremities Exam Comments: no pedal edema. - Routine Neurological Exam Present: alert, oriented X3 Results - Labs CBC & Chem 7: 01/11/18 05:20 01/14/18 07:17 Laboratory Results - last 24 hr 01/13/18 01/14/18 11:15 07:17 BUN 8 11 Creatinine 0.81 1.06 H Estimated GFR 78 L 57 L Microbiology 01/12/18 10:20 Blood - Peripheral Aerobic Blood Culture - Preliminary gram positive cocci 01/12/18 10:20 Blood - Peripheral Anaerobic Blood Culture - Preliminary No growth in 2 days 01/12/18 10:30 Blood - Peripheral Aerobic Blood Culture - Preliminary gram positive cocci 01/12/18 10:30 Blood - Peripheral Anaerobic Blood Culture - Preliminary No growth in 2 days 01/13/18 05:58 Blood - Peripheral Aerobic Blood Culture - Preliminary gram positive cocci 01/13/18 05:58 Blood - Peripheral Anaerobic Blood Culture - Preliminary gram positive cocci 01/10/18 07:30 Blood - Peripheral Aerobic Blood Culture - Final Staphylococcus aureus 01/10/18 07:30 Blood - Peripheral Anaerobic Blood Culture - Final Staphylococcus aureus 01/10/18 07:35 Blood - Peripheral Aerobic Blood Culture - Final Staphylococcus aureus 01/10/18 07:35 Blood - Peripheral Anaerobic Blood Culture - Final Staphylococcus aureus Assessment and Plan - Plan A/P - staph endocarditis/ bacteremia with septic emboli and possible cellulitis of both feet/ IVDA ( patient signed out AMA last admission). echo with mitral and aortic valve vegetation and blood cultures positive for staph aureus. CT chest with possible pulmonary septic emboli repeated blood cultures from 01/10/01/12 and 01/13 with gram-positive cocci- continue IV Ancef per ID . will repeat the blood cultures today. -fall with some pain to the right rib cage; will continue with pain control- CXR with no change. -anemia; likely due to chronic disease- stable- will monitor. -bilateral pedal edema; echo with EF 55%- venous doppler negative for DVT. -DVT prophylaxis with subq Lovenox. Discharge Planning: home when stable.
[2018-01-14] MEDS ORDERED: clonazePAM 1 MG Tablet PO SCH (14:00)
[2018-01-14 16:23] VITALS: BP 103/51; PULSE 106; TEMP 99; O2SAT 97
--- NOTE | 2018-01-17 10:58 | P.DS ---
Date of admission: 01/10/18 08:17 Primary care physician: No Primary Care Physician Brief History from admission: patient is a 42 y/o female, IVDA, who just signed out AMA after she was admitted with bacteremia, endocarditis, cellulitis of the foot and pneumonia. she says that ' she was not happy with the pain control' and she decided to leave. she says that she decided to come back because she noticed that her legs were more swollen and she was concerned.she reports on and off fever,chills and generalized body ache. she says that her last heroin injection was about six weeks ago. DS: Summary Hospital Course: - staph endocarditis/ bacteremia with septic emboli and possible cellulitis of both feet/ IVDA ( patient signed out AMA last admission). echo with mitral and aortic valve vegetation and blood cultures positive for staph aureus. CT chest with possible pulmonary septic emboli repeated blood cultures from 01/10/01/12 and 01/13 with gram-positive cocci- continue IV Ancef per ID . -fall with some pain to the right rib cage; will continue with pain control- CXR with no change. -anemia; likely due to chronic disease- stable- will monitor. -bilateral pedal edema; echo with EF 55%- venous doppler negative for DVT. -DVT prophylaxis with subq Lovenox. - Time Spent with Patient Total time spent providing and/or coordinating discharge services: Less than 30 minutes - Quality: VTE Deep Vein Thrombosis/Pulmonary Embolism Present on Admission: No Results Procedures completed during hospitalization: none. Labs on day of discharge: Preliminary micro results at discharge 01/14/18 13:05 Aerobic Blood Culture - Preliminary Blood - Peripheral No growth in 2 days Anaerobic Blood Culture - Preliminary No growth in 2 days 01/12/18 10:20 Anaerobic Blood Culture - Preliminary Blood - Peripheral No growth in 4 days 01/12/18 10:30 Anaerobic Blood Culture - Preliminary Blood - Peripheral No growth in 4 days - Impressions ITS Impressions Venous Doppler Study 01/10/18 00:00 CONCLUSION: 1. The study is negative for bilateral lower extremity deep venous thrombosis. Chest X-Ray 01/13/18 04:07 CONCLUSION: 1. Stable nodular consolidative areas bilaterally with cavitary lesion in the left upper lobe. Findings have not significantly changed since the study from 3 days ago. 2. Small left pleural effusion. Discharge Plan - Discharge Disposition Patient Disposition: Left Against Medical Advice - Discharge Condition Condition: Fair - Discharge Order Discharge Orders: AMA Discharge (Routine); Ordered 01/14/18 Ordered By: Avery Chong - Physicians Team Primary Care Provider: Primary Care Iman Payton Attending Provider: Avery Chong Other Providers: Esdras Ochoa MD
== END 2018-01-14 17:00 | disposition left against medical advice (07) ==
LOC: NEPC 06:20 → NEDA 08:17 → N05 11:00
PROVIDERS: ADMIT Internal Medicine; ATTEND Internal Medicine